=== PATIENT | male | born 1965 | race Two or more races ===

== ENCOUNTER 2025-01-23 14:20 | Inpatient (IN) | payer MEDICAID, OTHER ==
[~2025-01-23] VITALS: Ht 167.6 cm; Wt 63.8 kg
--- NOTE | 2025-01-23 14:37 | ED.PDOC ---
HPI (NEURO) HPI Comments 59 y/o M, BIBA with PMHX of epilepsy and chronic left sided deficit presents to the ED for CC of s/p seizure. EMS reports, patient is coming from home where he experienced a seizure. Patient is currently postictal; patient was given x5 Versed in route to ED. EMS states, patient is compliant with Keppra q.d. No other symptoms or medical history obtainable at this time due to patient being A&Ox0. Time Seen by MD: 14:30 Reviewed Notes: Nurses Notes, Ice Skating Teacher Notes, Medications, Allergies Information Source: Emergency Med Personnel Mode of Arrival: EMS Severity: Moderate Headache Severity: None Timing: Minutes Duration: Since onset Prehospital treatment: Other (Versed) Onset: At rest Circumstances: Spontaneous Symptoms: None During: Awake Modifying factors: Nothing Past Medical History Past Medical History (Other): epilepsy Surgical History: Unknown Family History Family History: Unknown Social History Smoker: Non-Smoker Alcohol: Denies ETOH Use Drugs: Denies Drug Use Lives In: Home Constitutional: denies: chills, diaphoresis, fatigue, fever, malaise, sweats, weakness, others EENTM: denies: blurred vision, double vision, ear bleeding, ear discharge, ear drainage, ear pain, ear ringing, eye pain, eye redness, hearing loss, mouth pain, mouth swelling, nasal discharge, nose bleeding, nose congestion, nose pain, photophobia, tearing, throat pain, throat swelling, voice changes, others Respiratory: denies: cough, hemoptysis, orthopnea, SOB at rest, shortness of breath, SOB with excertion, stridor, wheezing, others Cardiovascular: denies: chest pain, dizzy spells, diaphoresis, Dyspnea on exertion, edema, irregular heart beat, left arm pain, lightheadedness, palpitations, PND, syncope, others Gastrointestinal: denies: abdomen distended, abdominal pain, blood streaked bowels, constipated, diarrhea, dysphagia, difficulty swallowing, hematemesis, melena, nausea, poor appetite, poor fluid intake, rectal bleeding, rectal pain, vomiting, others Genitourinary: denies: burning, dysuria, flank pain, frequency, hematuria, incontinence, penile discharge, penile sore, pain, testicle pain, testicle swelling, urgency, others Neurological: reports: seizure; denies: dizziness, fainting, headache, left sided numbness, left sided weakness, numbness, paresthesia, pre-existing deficit, right sided numbness, right sided weakness, speech problems, tingling, tremors, weakness, others Musculoskeletal: denies: back pain, gout, joint pain, joint swelling, muscle pain, muscle stiffness, neck pain, others Integumetry: denies: bruises, change in color, change in hair/nails, dryness, laceration, lesions, lumps, rash, wounds, others Allergic/Immunocompromised: denies: Difficulty Healing, Frequent Infections, Hives, Itching, others Hematologic/Lymphatic: denies: anemia, blood clots, easy bleeding, easy bruising, swollen glands, others Endocrine: denies: excessive hunger, excessive sweating, excessive thirst, excessive urination, flushing, intolerance to cold, intolerance to heat, un explained weight gain, unexplained weight loss, others Psychiatric: denies: anxiety, bipolar disorder, depression, hopeless, panic disorder, schizophrenia, sleepless, suicidal, others Physical Exam General Appearance: No Apparent Distress, Normal HEENT: Normal ENT Inspection, Pharynx Normal Neck: Full Range of Motion, Non-Tender, Normal, Normal Inspection Respiratory: Chest Non-Tender, Lungs Clear, No Accessory Muscle Use, No Respiratory Distress, Normal Breath Sounds Cardiovascular: No Edema, No Murmur, No Gallop, Normal Peripheral Pulses, Regular Rate/Rhythm Breast Exam: Deferred Gastrointestinal: No Organomegaly, Non Tender, No Pulsatile Mass, Normal Bowel Sounds, Soft Genitalia: Deferred Pelvic: Deferred Rectal: Deferred Extremities: Non-tender, No pedal edema Musculoskeletal : Apperance: Normal Neurologic: Disoriented, Seizure, Sensory Deficit (chronic left sided deficit ) Cerebellar Function: NOT DONE Reflexes: Normal Skin: Dry, Normal Color, Warm Lymphatic: No Adenopathy EKG EKG : Pulse Rate (adult): 116 [place]: Normal Cardiac Rhythm: ST Block: None Hypertrophy: None ST: Normal Was a procedure done? Was a procedure done?: No Differential Diagnosis (SZ) Seizure: Epilepsy-Break Through X-Ray, Labs, Meds, VS Vital Signs Date Time Temp Pulse Resp B/P (MAP) Pulse Ox O2 Delivery O2 Flow Rate FiO2 01/23/25 16:05 100.2 106 13 116/67 (83) 88 100.2 01/23/25 16:00 109 01/23/25 14:37 102.3 119 16 91/56 (68) 99 102.3 01/23/25 14:37 116 Lab Test 01/23/25 16:58 01/23/25 16:01 01/23/25 15:11 Range/Units Lactic Acid Level Pending 3.7 *H 0.4-2.0 mmol/L POC Glucose 88 70-106 mg/dl White Blood Count 16.4 H 4.4-10.8 10^3/uL Red Blood Count 4.66 4.5-5.90 10^6/uL Hemoglobin 14.6 13.5-17.5 g/dL Hematocrit 42.4 41.0-53.0 % Mean Corpuscular Volume 91.0 80.0-100.0 fL Mean Corpuscular Hemoglobin 31.4 28.0-32.0 pg Mean Corpuscular Hemoglobin Concent 34.5 32.0-36.0 g/dL Red Cell Distribution Width 13.9 11.8-14.3 % Platelet Count 231 140-450 10^3/uL Mean Platelet Volume 8.5 6.9-10.8 fL Neutrophils (%) (Auto) 91.2 H 37.0-80.0 % Lymphocytes (%) (Auto) 3.2 L 10.0-50.0 % Monocytes (%) (Auto) 5.2 0.0-12.0 % Eosinophils (%) (Auto) 0.2 0.0-7.0 % Basophils (%) (Auto) 0.2 0.0-2.0 % Neutrophils # (Auto) 15.0 H 1.6-8.6 10 ^3/uL Lymphocytes # (Auto) 0.5 0.4-5.4 10 ^3/uL Monocytes # (Auto) 0.8 0-1.3 10 ^3/uL Eosinophils # (Auto) 0 0-0.8 10 ^3/uL Basophils # (Auto) 0 0-0.2 10 ^3/uL Nucleated Red Blood Cells 0.1 % D-Dimer, Quantitative 0.49 0.0-0.49 mg/L FEU Sodium Level 142 136-145 mmol/L Potassium Level 3.7 3.5-5.1 mmol/L Chloride Level 102 98-107 mmol/L Carbon Dioxide Level 28 20-31 mmol/L Anion Gap 12 5-15 Blood Urea Nitrogen 13 9-23 mg/dL Creatinine 1.04 0.700-1.30 mg/dL Glomerular Filtration Rate Calc 84 >90 mL/min BUN/Creatinine Ratio 12.5 10.0-20.0 Serum Glucose 69 L 74-106 mg/dL Calcium Level 9.8 8.7-10.4 mg/dL Magnesium Level 2.1 1.6-2.6 mg/dL Total Bilirubin 0.8 0.2-1.0 mg/dL Aspartate Amino Transferase (AST) 27 13-40 U/L Alanine Aminotransferase (ALT) 34 7-40 U/L Alkaline Phosphatase 113 46-116 U/L Total Protein 7.5 5.7-8.2 g/dL Albumin 4.9 H 3.2-4.8 g/dL Blood Oxycodone Screen Pending Blood Methadone Screen Pending Blood Amphetamines Screen Pending Drugs of Abuse Source Pending Plasma/Serum Blood Alcohol 4.8 <10 mg/dL Current Medications Medications (Trade) Dose Ordered Sig/Clara Route Start Time Stop Time Status Last Admin Levetiracetam 100 ml @ 400 mls/hr ONCE ONCE IV 01/23/25 16:15 01/23/25 16:29 DC 01/23/25 16:14 Sodium Chloride 1,900 ml @ 1,900 mls/hr ONCE ONCE IV 01/23/25 16:15 01/23/25 17:14 DC 01/23/25 16:26 Piperacillin Sod/ Tazobactam Sod 100 ml @ 100 mls/hr ONCE ONCE IV 01/23/25 16:15 01/23/25 17:14 DC 01/23/25 17:04 Lorazepam (Ativan Inj) 2 mg ONCE ONCE IV 01/23/25 16:30 01/23/25 16:31 DC 01/23/25 16:27 X-Ray, Labs, Meds, VS Comment This 59-year-old male with past medical significant for epilepsy presents after having a seizure. The patient was essentially nonverbal and presentation. Du ring his stay, however, the patient was noted to have a temperature was borderline to fever 101.2. He was leukocytosis, and tachycardia. The patient was noted to have a focal seizure while in the emergency room that is present with Ativan. The patient was also given vancomycin, Zosyn, IV fluids and Keppra for his seizures. He will be admitted for further workup management as multiple complaints. Time of 1ST Reevaluation: 15:00 Reevaluation 1ST: Unchanged Patient Education/Counseling: Diagnosis, Treatment Family Education/Counseling: No Family Present Departure 1 Departure Time of Disposition: 17:26 Impression: Primary Impression: Breakthrough seizure Additional Impression: Sepsis Disposition: ADMITTED INPATIENT Admit to: Tele Condition: Serious Critical Care Note Critical Care Time?: No Stability Stability form required: No Heart Score Heart Score: Heart Score Response (Comments) Value History N/A 0 EKG N/A 0 Age N/A 0 Risk Factors N/A 0 Troponin N/A 0 Total 0 I personally scribed for LARRY SHEARER MD ([email or web address]) on 01/23/25 at 14:37. Electronically submitted by Flora Borges ([email or web address]). I personally scribed for LARRY SHEARER MD ([email or web address]) on 01/23/25 at 14:40. Electronically submitted by Flora Borges ([email or web address]). I personally scribed for LARRY SHEARER MD ([email or web address]) on 01/23/25 at 14:49. Electronically submitted by Flora Borges ([email or web address]). I personally scribed for LARRY SHEARER MD ([email or web address]) on 01/23/25 at 14:50. Electronically submitted by Flora Borges ([employer] LARRY SHEARER MD Jan 23, 2025 14:37
[2025-01-23 15:25] LABS: Basophils # (auto) 0 10 ^3/uL (0-0.2); Basophils % (auto) 0.2 % (0.0-2.0); Eosinophils # (auto) 0 10 ^3/uL (0-0.8); Eosinophils % (auto) 0.2 % (0.0-7.0); Hematocrit 42.4 % (41.0-53.0); Hemoglobin 14.6 g/dL (13.5-17.5); Lymphocytes # (auto) 0.5 10 ^3/uL (0.4-5.4); Lymphocytes % (auto) 3.2 % (10.0-50.0); Mean Corpuscular Hemoglobin 31.4 pg (28.0-32.0); Mean Corpuscular Hgb Conc. 34.5 g/dL (32.0-36.0); Monocytes # (auto) 0.8 10 ^3/uL (0-1.3); Monocytes % (auto) 5.2 % (0.0-12.0); Neutrophils % (auto) 91.2 % (37.0-80.0); Nucleated Red Blood Cells % 0.1 %; Platelet Count (auto) 231 10^3/uL (140-450); Red Blood Cells 4.66 10^6/uL (4.5-5.90); Red Cell Distribution Width 13.9 % (11.8-14.3); White Blood Cell 16.4 10^3/uL (4.4-10.8)
[2025-01-23 15:40] LABS: Alanine Aminotransferase 34 U/L (7-40); Alkaline Phosphatase 113 U/L (46-116); Anion Gap 12 (5-15); Aspartate Aminotransferase 27 U/L (13-40); BUN/Creatinine Ratio 12.5 (10.0-20.0); Blood Alcohol 4.8 mg/dL (<10); Blood Urea Nitrogen 13 mg/dL (9-23); Calcium 9.8 mg/dL (8.7-10.4); Carbon Dioxide 28 mmol/L (20-31); Chloride 102 mmol/L (98-107); Magnesium 2.1 mg/dL (1.6-2.6); Potassium 3.7 mmol/L (3.5-5.1); Sodium 142 mmol/L (136-145); Total Protein 7.5 g/dL (5.7-8.2)
[2025-01-23 15:41] LABS: Bilirubin, Total 0.8 mg/dL (0.2-1.0)
[2025-01-23 15:42] LABS: Albumin 4.9 g/dL (3.2-4.8); Glucose 69 mg/dL (74-106)
[2025-01-23 15:43] LABS: Lactic Acid w/Reflex 3.7 mmol/L (0.4-2.0)
[2025-01-23] MEDS: levETIRAcetam 1000 mg/100ml 100 ML IV ONE (16:14)
[2025-01-23] MEDS: LORazepam 2MG/ML-1ML VIAL ONE (16:19)
[2025-01-23] MEDS: SODIUM CHLORIDE 0.9% 1,900 ML IV ONE (16:26)
[2025-01-23] MEDS: LORazepam 2MG/ML-1ML VIAL IV ONE (16:27)
[2025-01-23 16:30] VITALS: PULSE 106; RESP 13; O2SAT 92
[2025-01-23] MEDS: PIPERACILLIN-TAZOB 3.375GM 100 ML IV ONE (17:04)
[2025-01-23] MEDS: VANCOMYCIN 1GM/200ML PM 250 ML IV ONE (17:30)
[2025-01-23 19:25] VITALS: PULSE 98; RESP 13; O2SAT 97
--- NOTE | 2025-01-23 21:22 | DVH ---
EXAM: CT HEAD WITHOUT CONTRAST INDICATION: aloc TECHNIQUE: CT of the head without intravenous contrast. Radiation Dose Information: CT Dose: CTDI volume is 56.75 mGy. Dose-length product is 1118.41 mGy*cm The dose indicators for CT are the volume Computed Tomography (CT) Dose Index (CTDIvol) and the Dose Length Product (DLP), and are measured in units of mGy and mGy-cm, respectively. These indicators are not patient dose, but values generated from the CT scanner acquisition factors. The report includes radiation exposure data for exposures received during this examination. COMPARISON: None FINDINGS: There is no evidence of acute intracranial hemorrhage, extra-axial collection, mass effect, midline s hift, herniation or hydrocephalus. The ventricles, sulci and cisterns are age appropriate. The black-white differentiation is intact. Patchy periventricular and subcortical white matter hypoattenuation is nonspecific but may be related to small vessel ischemic disease. The visualized paranasal sinuses and mastoid air cells are clear. The surrounding soft tissues and osseous structures are unremarkable. IMPRESSION: 1. No acute intracranial hemorrhage 2. No CT findings of territorial ischemia. HS:Y
--- NOTE | 2025-01-23 21:31 | DVH ---
EXAM: XY CHEST PORTABLE TECHNIQUE: Single frontal chest radiograph CLINICAL HISTORY: cough COMPARISON: None Findings/Impression: Frontal chest radiograph demonstrates no acute osseous or superficial soft tissue abnormalities. The trachea is midline. The cardiac silhouette and mediastinum are within normal limits. No pneumothorax, pleural effusions, or consolidations.
[2025-01-23] MEDS ORDERED: ONDANSETRON HCL 4 MG/2 ML VIAL IV PRN (21:45)
[2025-01-23] MEDS ORDERED: DOCUSATE SOD 100 MG CAP PO PRN (21:45)
[2025-01-23] MEDS ORDERED: LORazepam 2MG/ML-1ML VIAL IV PRN (21:45)
[2025-01-23] MEDS ORDERED: HYDROcodone-ACET 5/325MG TAB PO PRN (21:45)
[2025-01-23] MEDS: ATORVASTATIN 20 MG TAB PO SCH (22:00)
[2025-01-23 22:10] VITALS: O2SAT 96
[2025-01-23 22:38] LABS: Urine Bacteria FEW /hpf (None Seen); Urine Blood Negative /uL (Negative); Urine Clarity Clear (Clear); Urine Color Colorless (Yellow); Urine Hyaline Cast FEW /lpf (0 - 2); Urine Mucus FEW (None Seen); Urine Protein, UAD Negative (Negative); Urine Specific Gravity 1.014 (1.001-1.035); Urine Squamous Epithelial Cell FEW /hpf (<5); Urine Urobilinogen Normal (Negative); Urine WBC 1 /HPF (0-3); Urine pH 7.5 (5.0-9.0)
[2025-01-23 22:44] LABS: Amphetamine Screen, Urine Neg (NEGATIVE); Barbiturate Scree,Urine Neg (NEGATIVE); Benzodiazephine Screen, Urine Pos (NEGATIVE); Cannabinoid Screen, Urine Neg (NEGATIVE); Cocaine Screen, Urine Neg (NEGATIVE); Opiate Scree,Urine Neg (NEGATIVE); Phencyclidine Screen, Urine Neg (NEGATIVE)
[2025-01-23] MEDS ORDERED: D5W/LACTATED RINGERS 1,000 ML IV ONE (23:00)
--- NOTE | 2025-01-23 23:09 | DVHHP2 ---
History of Present Illness Reason for Visit: Seizure disorder History of Present Illness The patient is a 59-year-old male with past medical history of epilepsy who presented to [facility] ED for evaluation of seizures activity. As reported by EMS, patient had seizure activity, currently postictal, given Versed x5 EN route to our facility ED. patient was seen and evaluated in the ED, laboratory data shows WBC 16.4, platelets 231, sodium 142, potassium 3.7, BUN 13, creatinine 1.04, GFR 84, glucose 69, lactic acid 3.7 trending down to 1.3, albumin 4.9, D-dimer 0.49, blood pressure 146/96, heart rate 95, temperature 100.2 F, O2 saturation 97% on room air. Head CT showed no acute intracranial hemorrhage. Patient was started on IV Keppra, please see medication orders section in the computer. On my assessment, patient denies chest pain, no headache, dizziness, no diaphoresis, no shortness of breath, no nausea, no vomiting, no fever, no chills. Patient was admitted for further evaluation and medical management. Past Medical History Epilepsy Past Surgical History No surgical history on file Family History Reviewed, noncontributory to the management of this case. Past Social History The patient lives at home, denies smoking, alcohol or illicit drugs abuse. Review of Systems Constitutional: Yes: Weakness; No: Fever, Chills, Sweats, Malaise, Other Eyes: No: Pain, Vision change, Conjunctivae inflammation, Eyelid inflammation, Other, Redness ENT: No: Ear pain, Ear discharge, Nose pain, Nose discharge, Nose congestion, Mouth pain, Mouth swelling, Throat pain, Throat swelling, Other Respiratory: No: Cough, Dry, Shortness of breath, SOB with excertion, Wheezing, Hemoptysis, Pleuritic Pain, Sputum, Wheezing, Other Cardiovascular: No: Chest Pain, Palpitations, Orthopnea, Paroxysmal Noc. Dyspnea, Edema, Lt Headedness, Other Gastrointestinal: No: Nausea, Vomiting, Abdominal Pain, Diarrhea, Constipation, Melena, Hematochezia, Other Genitourinary: No Dysuria, No Frequency, No Incontinence, No Hematuria, No Retention, No Other Musculoskeletal: No: other, neck pain, shoulder pain, arm pain, back pain, hand pain, leg pain, foot pain Skin: No: Rash, Lesions, Jaundice, Bruising, Other Neurological: Seizures; No: Weakness, Numbness, Incoordination, Change in speech, Confusion, Other Allergies: Coded Allergies: Diazepam (Verified Allergy, Unknown, 01/23/25) Medications Current Medications Medications Dose Ordered Sig/Clara Route Start Time Stop Time Status Last Admin Dose Admin Piperacillin Sod/ Tazobactam Sod 100 ml @ 25 mls/hr Q8HR@0100,0900,1700 IV 01/24/25 01:00 Levetiracetam 100 ml @ 400 mls/hr BID IV 01/24/25 10:00 Aspirin 81 mg DAILY PO 01/24/25 10:00 Atorvastatin Calcium 40 mg HS PO 01/23/25 22:00 Hydralazine HCl 10 mg Q6HP PRN IV 01/23/25 21:45 Lorazepam 1 mg Q8HP PRN IV 01/23/25 21:45 Acetaminophen/ Hydrocodone Bitart 1 tab Q4HP PRN PO 01/23/25 21:45 Ondansetron HCl 4 mg Q4HP PRN IV 01/23/25 21:45 Docusate Sodium 100 mg BIDPRN PRN PO 01/23/25 21:45 Acetaminophen 650 mg Q6HP PRN PO 01/23/25 21:45 Amlodipine Besylate 5 mg DAILY PO 01/24/25 10:00 Exam Vital Signs Vital Signs Date Time Temp Pulse Resp B/P (MAP) Pulse Ox O2 Delivery O2 Flow Rate FiO2 01/23/25 22:10 96 Room Air* 0 21 01/23/25 19:55 100.2 95 15 146/96 (113) 100.2 General Appearance: Alert, Cooperative, No acute distress, Other (Oriented x2) HEENT: Atraumatic, PERRLA, EOMI, Mucous membr. moist/pink Respiratory: Clear to auscultation, Normal air movement Cardiovascular: Regular rate, Normal S1, Normal S2, No murmurs Abdominal: Normal bowel sounds, Soft, No tenderness, No hepatospenomegaly, No masses Extremities: No clubbing, No cyanosis, No edema, Normal pulses, No tenderness/swelling Skin: No rashes, No breakdown, No significant lesion Neuro: Normal speech, Normal tone, Sensation intact, Cranial nerves 3-12 NL, Reflexes 2+, Other (Generalized weakness) Psych/Mental Status: Mental status NL, Mood NL Labs/Xrays Labs Test 01/23/25 21:44 01/23/25 16:58 01/23/25 16:01 01/23/25 15:11 Range/Units Urine Color Colorless Yellow Urine Clarity Clear Clear Urine pH 7.5 5.0-9.0 Urine Specific [place] 1.014 1.001-1.035 Urine Protein Negative Negative Urine Ketones Negative Negative Urine Blood Negative Negative /uL Urine Nitrite Negative Negative Urine Bilirubin Negative Negative Urine Urobilinogen Normal Negative mg/dL Urine Leukocyte Esterase Negative Negative /uL Urine RBC 1 0 - 3 /hpf Urine Microscopic WBC 1 0-3 /HPF Urine Squamous Epithelial Cells Few <5 /hpf Urine Bacteria Few H None Seen /hpf Urine Hyaline Casts Few 0 - 2 /lpf Urine Mucus Few None Seen Urine Glucose Normal Normal mg/dL Urine Opiates Screen Neg NEGATIVE Urine Fentanyl Screen Neg NEGATIVE Urine Barbiturates Screen Neg NEGATIVE Urine Phencyclidine Screen Neg NEGATIVE Urine Amphetamines Screen Neg NEGATIVE Urine Benzodiazepines Screen Pos NEGATIVE Urine Cocaine Screen Neg NEGATIVE Urine Cannabinoids Screen Neg NEGATIVE Lactic Acid Level 1.3 0.4-2.0 mmol/L POC Glucose 88 70-106 mg/dl White Blood Count 16.4 H 4.4-10.8 10^3/uL Red Blood Count 4.66 4.5-5.90 10^6/uL Hemoglobin 14.6 13.5-17.5 g/dL Hematocrit 42.4 41.0-53.0 % Mean Corpuscular Volume 91.0 80.0-100.0 fL Mean Corpuscular Hemoglobin 31.4 28.0-32.0 pg Mean Corpuscular Hemoglobin Concent 34.5 32.0-36.0 g/dL Red Cell Distribution Width 13.9 11.8-14.3 % Platelet Count 231 140-450 10^3/uL Mean Platelet Volume 8.5 6.9-10.8 fL Neutrophils (%) (Auto) 91.2 H 37.0-80.0 % Lymphocytes (%) (Auto) 3.2 L 10.0-50.0 % Monocytes (%) (Auto) 5.2 0.0-12.0 % Eosinophils (%) (Auto) 0.2 0.0-7.0 % Basophils (%) (Auto) 0.2 0.0-2.0 % Neutrophils # (Auto) 15.0 H 1.6-8.6 10 ^3/uL Lymphocytes # (Auto) 0.5 0.4-5.4 10 ^3/uL Monocytes # (Auto) 0.8 0-1.3 10 ^3/uL Eosinophils # (Auto) 0 0-0.8 10 ^3/uL Basophils # (Auto) 0 0-0.2 10 ^3/uL Nucleated Red Blood Cells 0.1 % D-Dimer, Quantitative 0.49 0.0-0.49 mg/L FEU Sodium Level 142 136-145 mmol/L Potassium Level 3.7 3.5-5.1 mmol/L Chloride Level 102 98-107 mmol/L Carbon Dioxide Level 28 20-31 mmol/L Anion Gap 12 5-15 Blood Urea Nitrogen 13 9-23 mg/dL Creatinine 1.04 0.700-1.30 mg/dL Glomerular Filtration Rate Calc 84 >90 mL/min BUN/Creatinine Ratio 12.5 10.0-20.0 Serum Glucose 69 L 74-106 mg/dL Calcium Level 9.8 8.7-10.4 mg/dL Magnesium Level 2.1 1.6-2.6 mg/dL Total Bilirubin 0.8 0.2-1.0 mg/dL Aspartate Amino Transferase (AST) 27 13-40 U/L Alanine Aminotransferase (ALT) 34 7-40 U/L Alkaline Phosphatase 113 46-116 U/L Total Protein 7.5 5.7-8.2 g/dL Albumin 4.9 H 3.2-4.8 g/dL Plasma/Serum Blood Alcohol 4.8 <10 mg/dL PATIENT: VLADISLAV SINGH ACCT: [id number] UNIT: [id number] : 1965 LOC: ER ROOM / BED: / AGE / SEX: 59 / M ADM STATUS: REG ER SERVICE 1450 ORDERING PHYSICIAN: LARRY SHEARER MD PROCEDURE(s): HWOCT - HEAD WITHOUT CONTRAST REASON: aloc ORDER NUMBER(s): [id number], ACCESSION NUMBER(s): [id number] EXAM: CT HEAD WITHOUT CONTRAST INDICATION: aloc TECHNIQUE: CT of the head without intravenous contrast. Radiation Dose Information: CT Dose: CTDI volume is 56.75 mGy. Dose-length product is 1118.41 mGy*cm The dose indicators for CT are the volume Computed Tomography (CT) Dose Index (CTDIvol) and the Dose Length Product (DLP), and are measured in units of mGy and mGy-cm, respectively. These indicators are not patient dose, but values generated from the CT scanner acquisition factors. The report includes radiation exposure data for exposures received during this examination. COMPARISON: None FINDINGS: There is no evidence of acute intracranial hemorrhage, extra-axial collection, mass effect, midline shift, herniation or hydrocephalus. The ventricles, sulci and cisterns are age appropriate. The black-white differentiation is intact. Patchy periventricular and subcortical white matter hypoattenuation is nonspecific but may be related to small vessel ischemic disease. The visualized paranasal sinuses and mastoid air cells are clear. The surrounding soft tissues and osseous structures are unremarkable. IMPRESSION: 1. No acute intracranial hemorrhage 2. No CT findings of territorial ischemia. ORDERING PHYSICIAN: LARRY SHEARER MD PROCEDURE(s): CXRP - CHEST PORTABLE REASON: cough ORDER NUMBER(s): [id number], ACCESSION NUMBER(s): [id number] EXAM: XY CHEST PORTABLE TECHNIQUE: Single frontal chest radiograph CLINICAL HISTORY: cough COMPARISON: None Findings/Impression: Frontal chest radiograph demonstrates no acute osseous or superficial soft tissue abnormalities. The trachea is midline. The cardiac silhouette and mediastinum are within normal limits. No pneumothorax, pleural effusions, or consolidations. Assessment/Plan Assessment/Plan Breakthrough seizure Generalized weakness Sepsis, unspecified organism Plan 1. Admit to telemetry unit 2. Breathing treatment 3. Pain control management 4. IV antibiotic management 5. Management of fluids and electrolytes 6. Consultation for Neurology 7. Diagnostic test head CT 8. DVT prophylaxis-on SCDs 9. Repeat labs CBC, CMP in a.m. 10. Home medication reviewed and reconciled 11. Continue with current medical management 12. Treatment plan discussed with patient and RN. Patient verbalized understanding. 1 Plan discussed with: Patient, Other (RN) My Orders Orders - DAMARIS LOUIS DNP Procedure Category Date Status Time Aspirin Tablet PHA 01/24/25 In Process 10:00 Atorvastatin (Lipitor) PHA 01/23/25 In Process 22:00 Hydralazine Injection PHA 01/23/25 In Process (Apresoline Inject 21:45 Lorazepam 2mg/Ml Inj PHA 01/23/25 In Process (Ativan Inj) 21:45 * Neurology Consult CONS 01/23/25 Transmitted 21:38 Allergies KENAN 01/23/25 In Process 21:38 Code Status CODE 01/23/25 Transmitted 21:38 Oxygen Per Hour RT 01/23/25 Transmitted 21:38 Hydrocodone-Acet PHA 01/23/25 In Process 5/325mg Tab ([place] 21:45 Ondansetron Hcl PHA 01/23/25 In Process (Zofran) 21:45 Docusate Sodium PHA 01/23/25 In Process Capsule (Colace 21:45 Fall Risk Precautions KENAN 01/23/[address] 21:38 Complete Blood Count LAB 01/24/25 Verified 04:00 Comprehensive LAB 01/24/25 Verified Metabolic Panel 04:00 Cardiac DIET 01/24/25 Transmitted Diet-2gna,Lofat,Lochol Breakfast Condition: Serious KENAN 01/23/25 In Process 21:38 Acetaminophen Tablet PHA 01/23/25 In Process (Tylenol Tablet) 21:45 Bedrest With Bathroom KENAN 01/23/25 In Process Privileg 21:38 Sequential KEANN 01/23/25 In Process Compression Device Amlodipine Tablet PHA 01/24/25 In Process (Norvasc Tablet) 10:00 Levetiracetam 1000 PHA 01/24/25 In Process Mg/100ml (Levetiracet 10:00 Piperacillin-Tazob PHA 01/24/25 In Process 3.375gm (Zosyn 3.375g 01:00 Problem List: (1) Breakthrough seizure (2) Generalized weakness (3) Sepsis, unspecified organism Date of Service: Jan 23, 2025 Billing Provider: DAMARIS LOUIS DNP Common Visit Codes: [id number] INP/OBS CARE (HIGH) DAMAIRS LOUIS DNP Jan 23, 2025 23:09
[2025-01-23] MEDS ORDERED: NITROGLYCERIN 0.4 MG SL TAB SL PRN (23:15)
[2025-01-23] MEDS ORDERED: MORPHINE SULFATE INJ 2 MG/ml SYRG IV PRN (23:15)
[2025-01-24] VITALS (10 sets, daily range): BP systolic 121–145; BP diastolic 72–85; PULSE 68–87; RESP 17–19; TEMP 97.6–98; O2SAT 90–100
[2025-01-24] MEDS: PIPERACILLIN-TAZOB 3.375GM 100 ML IV SCH (01:00)
[2025-01-24 05:20] LABS: Basophils # (auto) 0 10 ^3/uL (0-0.2); Basophils % (auto) 0.3 % (0.0-2.0); Eosinophils # (auto) 0.1 10 ^3/uL (0-0.8); Eosinophils % (auto) 0.7 % (0.0-7.0); Hematocrit 43.6 % (41.0-53.0); Hemoglobin 15.3 g/dL (13.5-17.5); Lymphocytes # (auto) 1.4 10 ^3/uL (0.4-5.4); Lymphocytes % (auto) 10.8 % (10.0-50.0); Mean Corpuscular Hgb Conc. 35.2 g/dL (32.0-36.0); Mean Corpuscular Volume 91.1 fL (80.0-100.0); Monocytes # (auto) 0.8 10 ^3/uL (0-1.3); Monocytes % (auto) 6.5 % (0.0-12.0); Neutrophils # (auto) 10.4 10 ^3/uL (1.6-8.6); Neutrophils % (auto) 81.7 % (37.0-80.0); Nucleated Red Blood Cells % 0.4 %; Platelet Count (auto) 223 10^3/uL (140-450); Red Blood Cells 4.78 10^6/uL (4.5-5.90); Red Cell Distribution Width 13.9 % (11.8-14.3); White Blood Cell 12.7 10^3/uL (4.4-10.8)
[2025-01-24 05:51] LABS: Alanine Aminotransferase 29 U/L (7-40); Albumin 4.8 g/dL (3.2-4.8); Alkaline Phosphatase 109 U/L (46-116); Anion Gap 8 (5-15); Aspartate Aminotransferase 38 U/L (13-40); BUN/Creatinine Ratio 11.6 (10.0-20.0); Calcium 9.4 mg/dL (8.7-10.4); Carbon Dioxide 27 mmol/L (20-31); Chloride 101 mmol/L (98-107); Glucose 95 mg/dL (74-106); Potassium 3.8 mmol/L (3.5-5.1); Sodium 136 mmol/L (136-145); Total Protein 7.6 g/dL (5.7-8.2)
[2025-01-24 06:14] LABS: Bilirubin, Total 1.7 mg/dL (0.2-1.0); Blood Urea Nitrogen 8 mg/dL (9-23)
[2025-01-24] MEDS: levETIRAcetam 1000 mg/100ml 100 ML IV SCH (09:43)
[2025-01-24] MEDS: SODIUM CHLORIDE 0.9% 1,000 ML IV SCH (09:50)
[2025-01-24] MEDS: amLODIPine BESYLATE 5 MG TAB PO SCH (09:53)
[2025-01-24] MEDS: ASPirin 81 mg TAB PO SCH (09:53)
[2025-01-24] MEDS ORDERED: VANCOMYCIN PER PHARMACY 0 MG IV SCH (12:00)
--- NOTE | 2025-01-24 12:31 | DVHINCON2 ---
Date of service: Jan 24, 2025 Referring Physician Kathya Reason for Consultation Seizure disorder History of Present Illness Mr. Li is a 59 years old right-handed gentleman with a history of hypertension, stroke with residual right-sided weakness, seizure disorder, he came to the [facility] on 01/23/2025 with a chief complaint of seizure activity. At this time, he is sedated with Ativan because of seizure activity (respond to verbal stimuli, he follows), the history is obtained from his son On 01/23/2025, his son witnessed a intense seizure activity on him, in that he was shaking in both arms, legs, eyes rolling back, increased saliva from the mouth, the shaking persists for more than 10 minutes, and his son relates the patient was has never had a seizure attack so intense and so long He seizure problem started in the age of 20, in that he has spells event with loss of consciousness, shaking all over body, the seizure typically lasts for less than 1 minutes or no more than 2 minutes, the last time he had seizure was in 11/2024, and he had four seizures in 2023. He sees his family doctor for seizure control, and he is to see a neurologist soon, he is on Keppra 1000 mg b.i.d. In 08/2023, the patient was suffer from a stroke, which caused right-sided weakness, patient was has had a lot of improvement, he is able to use the right hand occasionally, he can walk with a walker, he was on aspirin 81 mg day, ac cording to the reconciled medication list, he was supposed to take atorvastatin 40 mg daily [phone], father, poor historian Urinalysis, 01/23/2025: WBC: 1, urine leukocyte esterase: Likely UDS, : Benzo Plasma alcohol, 01/23/2025: 4.8 WBC/HB/PLT/MCV, 01/24/2025: 12.7/15.3/223/91.1 BMP 01/24/2025: Unremarkable Lactic acid, 01/23/2025: 3.7, 1.3 HGB A1c, 01/24/2025: 5 TBI/AST/ALT/AP, 01/23/2025: Normal, 01/24/2025: 1.7/38/29/109 TSH, 01/23/2025: 1.07 CT head 01/23/2025: 1. No acute intracranial hemorrhage 2. No CT findings of territorial ischemia Past Medical History Hypertension, stroke with residual right-sided weakness, Past Surgical History Unknown Family History Unknown Social History Smoker: Non-Smoker Alcohol: Denies ETOH Use Drugs: Denies Drug Use Lives In: Home Allergies: Coded Allergies: Diazepam (Verified Allergy, Unknown, 01/23/25) Home Meds Unable to Obtain Active Prescriptions or Reported Meds Current Medications Current Medications Medications (Trade) Dose Ordered Sig/Clara Route PRN Reason Start Time Stop Time Status Last Admin Piperacillin Sod/ Tazobactam Sod 100 ml @ 25 mls/hr Q8HR@0100,0900,1700 IV 01/24/25 01:00 01/24/25 11:53 DC 01/24/25 09:53 Levetiracetam 100 ml @ 400 mls/hr BID IV 01/24/25 10:00 01/24/25 09:43 Aspirin 81 mg DAILY PO 01/24/25 10:00 Atorvastatin Calcium (Lipitor) 40 mg HS PO 01/23/25 22:00 Hydralazine HCl (Apresoline Injection) 10 mg Q6HP PRN IV SBP>150 01/23/25 21:45 Lorazepam (Ativan Inj) 1 mg Q8HP PRN IV ANXIETY 01/23/25 21:45 Acetaminophen/ Hydrocodone Bitart ([place] 5/325MG Tab) 1 tab Q4HP PRN PO MODERATE PAIN (4-6 PAIN SCALE) 01/23/25 21:45 Ondansetron HCl (Zofran) 4 mg Q4HP PRN IV NAUSEA / VOMITING 01/23/25 21:45 Docusate Sodium (Colace Capsule) 100 mg BIDPRN PRN PO FOR CONSTIPATION 01/23/25 21:45 Acetaminophen (Tylenol Tablet) 650 mg Q6HP PRN PO PAIN SCALE 1-3 OR TEMP>100.4 01/23/25 21:45 Amlodipine Besylate (Norvasc Tablet) 5 mg DAILY PO 01/24/25 10:00 Nitroglycerin (Ntrostat Sublingual) 0.4 mg Q5MINP PRN SL FOR CHEST PAIN 01/23/25 23:15 Morphine Sulfate 2 mg Q30M PRN IV FOR CHEST PAIN 01/23/25 23:15 Lorazepam (Ativan Inj) 1 mg Q5MINP PRN IV SEIZURES 01/24/25 09:15 Sodium Chloride 1,000 ml @ 75 mls/hr [id number] IV 01/24/25 09:15 01/24/25 09:50 Vancomycin HCl 0 ml @ 0 mls/hr UD IV 01/24/25 12:00 UNV Ceftriaxone Sodium/Dextrose 50 ml @ 50 mls/hr Q12HR@ IV 01/24/25 21:00 UNV Review of Systems Unobtainable Vital Signs Vital Signs Date Time Temp Pulse Resp B/P (MAP) Pulse Ox O2 Delivery O2 Flow Rate FiO2 01/24/25 08:13 97.8 83 18 121/72 (88) 100 97.8 01/24/25 08:00 Nasal Cannula* 2 28 Physical Exam GENERAL EXAM: General: the patient is well developed and nourished. No acute distress. HEENT: Normocephalic, neck is supple, no carotid bruits. No mass. RESPIRATORY: Normal respiratory effort with symmetrical lung expansion. Lungs clear to auscultation. CARDIOVASCULAR: Regular rate and rhythm with no murmurs. S1, S2. ABDOMEN: Soft, nontender, normal bowel sound NEUROLOGICAL: MENTAL STATUS: Subjective SPEECH, LANGUAGE, HIGHER CORTICAL FUNCTION: Minimal verbal output CRANIAL NERVES: #2: Intact visual de leon to confrontation. T #3,4,6: Pupils are equal, round and reactive. EOMs full and conjugate. #5: Facial sensation intact in all three divisions bilaterally. Mandibular strength intact. #7: Mild Right facial weakness with some lower motor neuron features #8: Hearing grossly normal to voice. #9,10: Deferred #11: Deferred #12: Tongue midline. No fasciculations or atrophy. SENSATION: Sensation to touch and pinprick is ok MOTOR: Normal tone in the upper and lower extremity. Normal muscle bulk. No fasciculations. No abnormal movements or posturing. Muscle strength of the major groups in the left upper extremity is more than 4/5, lower extremity: More than 3/5. Muscle strength of he major groups in the right extremities is 0/5. REFLEXES: Deep tendon reflexes are symmetrical. No pathological reflexes. CEREBELLAR/COORDINATION: Deferred GAIT/STATION: deferred. Labs/Diagnostic Data Labs Test 01/24/25 10:05 01/24/25 04:53 01/23/25 21:44 01/23/25 16:58 Range/Units White Blood Count 12.7 H 4.4-10.8 10^3/uL Red Blood Count 4.78 4.5-5.90 10^6/uL Hemoglobin 15.3 13.5-17.5 g/dL Hematocrit 43.6 41.0-53.0 % Mean Corpuscular Volume 91.1 80.0-100.0 fL Mean Corpuscular Hemoglobin 32.0 28.0-32.0 pg Mean Corpuscular Hemoglobin Concent 35.2 32.0-36.0 g/dL Red Cell Distribution Width 13.9 11.8-14.3 % Platelet Count 223 140-450 10^3/uL Mean Platelet Volume 8.7 6.9-10.8 fL Neutrophils (%) (Auto) 81.7 H 37.0-80.0 % Lymphocytes (%) (Auto) 10.8 10.0-50.0 % Monocytes (%) (Auto) 6.5 0.0-12.0 % Eosinophils (%) (Auto) 0.7 0.0-7.0 % Basophils (%) (Auto) 0.3 0.0-2.0 % Neutrophils # (Auto) 10.4 H 1.6-8.6 10 ^3/uL Lymphocytes # (Auto) 1.4 0.4-5.4 10 ^3/uL Monocytes # (Auto) 0.8 0-1.3 10 ^3/uL Eosinophils # (Auto) 0.1 0-0.8 10 ^3/uL Basophils # (Auto) 0 0-0.2 10 ^3/uL Nucleated Red Blood Cells 0.4 % Sodium Level 136 # 136-145 mmol/L Potassium Level 3.8 3.5-5.1 mmol/L Chloride Level 101 98-107 mmol/L Carbon Dioxide Level 27 20-31 mmol/L Anion Gap 8 5-15 Blood Urea Nitrogen 8 L 9-23 mg/dL Creatinine 0.69 L 0.700-1.30 mg/dL Glomerular Filtration Rate Calc 108 >90 mL/min BUN/Creatinine Ratio 11.6 10.0-20.0 Serum Glucose 95 74-106 mg/dL Hemoglobin A1c 5.0 <5.7 % A1C Calcium Level 9.4 8.7-10.4 mg/dL Total Bilirubin 1.7 H 0.2-1.0 mg/dL Aspartate Amino Transferase (AST) 38 13-40 U/L Alanine Aminotransferase (ALT) 29 7-40 U/L Alkaline Phosphatase 109 46-116 U/L Creatine Kinase 809 H 46-171 U/L Total Protein 7.6 5.7-8.2 g/dL Albumin 4.8 3.2-4.8 g/dL Vitamin D 25-Hydroxy 13.9 L 30.0-100 ng/mL Thyroid Stimulating Hormone (TSH) 1.07 0.55-4.78 uIU/mL Urine Color Colorless Yellow Urine Clarity Clear Clear Urine pH 7.5 5.0-9.0 Urine Specific [place] 1.014 1.001-1.035 Urine Protein Negative Negative Urine Ketones Negative Negative Urine Blood Negative Negative /uL Urine Nitrite Negative Negative Urine Bilirubin Negative Negative Urine Urobilinogen Normal Negative mg/dL Urine Leukocyte Esterase Negative Negative /uL Urine RBC 1 0 - 3 /hpf Urine Microscopic WBC 1 0-3 /HPF Urine Squamous Epithelial Cells Few <5 /hpf Urine Bacteria Few H None Seen /hpf Urine Hyaline Casts Few 0 - 2 /lpf Urine Mucus Few None Seen Urine Glucose Normal Normal mg/dL Urine Opiates Screen Neg NEGATIVE Urine Fentanyl Screen Neg NEGATIVE Urine Barbiturates Screen Neg NEGATIVE Urine Phencyclidine Screen Neg NEGATIVE Urine Amphetamines Screen Neg NEGATIVE Urine Benzodiazepines Screen Pos NEGATIVE Urine Cocaine Screen Neg NEGATIVE Urine Cannabinoids Screen Neg NEGATIVE Lactic Acid Level 1.3 0.4-2.0 mmol/L Test 01/23/25 16:01 01/23/25 15:11 Range/Units POC Glucose 88 70-106 mg/dl D-Dimer, Quantitative 0.49 0.0-0.49 mg/L FEU Magnesium Level 2.1 1.6-2.6 mg/dL Plasma/Serum Blood Alcohol 4.8 <10 mg/dL Assessment Status epileptics Grand mal seizure Right hemiplegia ? Hammad's paralysis ? New stroke Chronic stroke Altered mental status Postictal confusion Metabolic encephalopathy Plan/Recommendation Monitoring Supportive treatment Telemetry EEG MR brain scan Increase the Keppra to 1250 mg b.i.d. Ativan for seizure breakthrough Aspirin 81 mg daily Lipitor 40 mg daily Up to chair Physical therapy Prognosis poor This medical document was created using an electronic medical record system with [employer] dictation system. Although this document has been carefully reviewed, there may still be some phonetic and typographical errors. These areas are purely typographical due to imperfections of the software programs, and do not reflect any compromise in the patient's medical care. Plan discussed with: TaeNiko KARLENE JUAREZ MD Jan 24, 2025 12:31
[2025-01-24] MEDS: VANCOMYCIN 1GM/200ML PM 250 ML IV ONE (13:43)
--- NOTE | 2025-01-24 14:25 | DVHPNRES ---
Progress Note Date Seen: Jan 24, 2025 Resident Creating Document: NASIMA SHAFER RESIDENT Medical Necessity Reason Pt with a Central, PICC or Fol: No Subjective Review of Systems The patient is a 59-year-old male with past medical history of epilepsy who presented to [facility] ED for evaluation of seizures activity. As reported by EMS, patient had seizure activity, currently postictal, given Versed x5 EN route to our facility ED. After admission the patient had more than 2 episodes of seizure with generalized tonic-clonic activity which last less than 30 second. Patient's vitals are stable and GCS is more than 15. patient is A&O X 0 Review of system could not be assessed as patient is A&O X 0. Objective vital signs Vital Sign Date Time Temp Pulse Resp B/P (MAP) Pulse Ox O2 Delivery O2 Flow Rate FiO2 01/24/25 13:15 97.8 83 18 135/82 (99) 100 97.8 01/24/25 08:00 Nasal Cannula* 2 28 Total Intake and Output 01/23/25 01/23/25 01/24/25 15:00 23:00 07:00 Intake Total 2100 ml Balance 2100 ml medications Current Medications Medications Dose Ordered Sig/Clara Route Start Time Stop Time Status Last Admin Dose Admin Aspirin 81 mg DAILY PO 01/24/25 10:00 Atorvastatin Calcium 40 mg HS PO 01/23/25 22:00 Hydralazine HCl 10 mg Q6HP PRN IV 01/23/25 21:45 Acetaminophen/ Hydrocodone Bitart 1 tab Q4HP PRN PO 01/23/25 21:45 Ondansetron HCl 4 mg Q4HP PRN IV 01/23/25 21:45 Docusate Sodium 100 mg BIDPRN PRN PO 01/23/25 21:45 Acetaminophen 650 mg Q6HP PRN PO 01/23/25 21:45 Amlodipine Besylate 5 mg DAILY PO 01/24/25 10:00 Nitroglycerin 0.4 mg Q5MINP PRN SL 01/23/25 23:15 Morphine Sulfate 2 mg Q30M PRN IV 01/23/25 23:15 Lorazepam 1 mg Q5MINP PRN IV 01/24/25 09:15 Sodium Chloride 1,000 ml @ 75 mls/hr [id number] IV 01/24/25 09:15 01/24/25 09:50 75 MLS/HR Vancomycin HCl 0 ml @ 0 mls/hr UD IV 01/24/25 12:00 Ceftriaxone Sodium/Dextrose 50 ml @ 50 mls/hr Q12HR@,21 IV 01/24/25 21:00 Levetiracetam 1250 mg/Dextrose 112.5 ml @ 450 mls/hr BID IV 01/24/25 22:00 Ampicillin Sodium 2 gm/Sodium Chloride 100 ml @ 100 mls/hr Q6HR IV 01/24/25 18:00 Vancomycin HCl 150 ml @ 150 mls/hr Q8H IV 01/24/25 22:00 Examination Physical examination: General Appearance: Alert, Oriented X0. HEENT: Atraumatic, PERRLA, EOMI, Mucous membrane moist/pink Respiratory: Clear to auscultation, Normal air movement Cardiovascular: Regular rate, Normal S1, Normal S2, No murmurs, no chest wall tenderness Abdominal: Normal bowel sounds, Soft, No tenderness, No hepatospenomegaly, No masses Extremities: No clubbing, No cyanosis, No edema, Normal pulses, No tenderness/swelling Skin: No rashes, No breakdown, No significant lesion Neuro: Rt sided hemiparesis, Strength at 5/5 X2 ext, Normal tone, Sensation intact, grossly intact cranial nerves. Psych/Mental Status: Mental status NL, Mood NL Negative Kernig and Brudzinski sign. laboratory and microbiology Laboratory Tests 01/24/25 04:53 Test 01/24/25 04:53 Range/Units Serum Glucose 95 74-106 mg/dL Labs and/or images reviewed: Labs reviewed by me, Image(s) reviewed by me Problem List/Assessment/Plan Problem List/Assessment/Plan Assessment and plan: # Sepsis likely due to meningitis # Acute metabolic encephalopathy likely due to seizure # Possible postictal confusion # Break through Seizure # History of epilepsy - CT head without contrast revealed no acute intracranial abnormality. - Blood culture pending - Neurology on board - Ordered MRI of the brain without contrast, EEG - Empirical antibiotic for possible meningitis - IV ceftriaxone 2 g b.i.d., IV vancomycin as per pharmacy. - Appreciate neurology consultation - possible LP after Neurology recommendation - CPK was mildly elevated because of seizure. - IV Ativan 1 mg q5min p.r.n. for seizure - UDS was positive for benzodiazepine and ordered Keppra level - IV Keppra 1250 mg b.i.d. - Seizure precaution. # Vitamin D deficiency - Vitamin D 75393 units Q 7D # PUD prophylaxis - Pepcid 20 mg p.o. daily # DVT prophylaxis - Lovenox 40 mg sc daily Goal of care could not be discussed as patient is A&O X [address] Gamboa Plan discussed with: Patient, Other My Orders My Orders Orders - NASIMA SHAFER Procedure Category Date Status Time Levetiracetam (Keppra) LAB 01/24/25 In Process 07:17 Lorazepam 2mg/Ml Inj PHA 01/24/25 In Process (Ativan Inj) 09:15 Sodium Chloride 0.9% PHA 01/24/25 In Process 09:15 Comprehensive LAB 01/24/25 In Process Hepatitis Panel 10:07 Npo (Nothing By DIET 01/24/25 Transmitted Mouth) Diet Lunch Vancomycin Per PHA 01/24/25 In Process Pharmacy 12:00 Ceftriaxone 2gm/50ml PHA 01/24/25 In Process D5w (Rocephin 2gm/5 21:00 * Radiologist Consult CONS 01/24/25 Transmitted 11:46 * Wound Consult CONS 01/24/25 Transmitted * Neurology Consult CONS 01/24/25 Transmitted 13:19 Ampicillin Sod 2gm Inj PHA 01/24/25 In Process 18:00 Vancomycin PHA 01/24/25 In Process 750mg/150ml 22:00 Vancomycin Per KENAN 01/25/25 In Process Pharmacy Protoc 14:00 Creatinine LAB 01/25/25 Verified 13:00 Vancomycin,Trough LAB 01/25/25 Verified 13:00 Date of Service: Jan 24, 2025 Billing Provider: BUSTER OHARA MD Common Visit Codes: [id number] INP/OBS CARE(HIGH) NASIMA SHAFER RESIDENT Jan 24, 2025 14:25 BUSTER OHARA MD Jan 29, 2025 23:36
[2025-01-24] MEDS: cefTRIAXone 2GM/50ML D5W 50 ML IV ONE (15:37)
[2025-01-24] MEDS: LORazepam 2MG/ML-1ML VIAL IV PRN (16:31)
[2025-01-24] MEDS ORDERED: AMPICILLIN SOD 2GM INJ 2 GM in SODIUM CHL 0.9% 100 ML IV SCH (18:00)
[2025-01-24] MEDS: VANCOMYCIN 750mg/150ml 150 ML IV SCH (22:03)
[2025-01-24] MEDS: cefTRIAXone 2GM/50ML D5W 50 ML IV SCH (22:03)
[2025-01-24] MEDS: levETIRAcetam INJ 1,250 MG in D5W 5% 100 ML IV SCH (22:53)
[2025-01-25] VITALS (8 sets, daily range): BP systolic 112–135; BP diastolic 66–90; PULSE 60–82; RESP 16–18; TEMP 96.6–98.1; O2SAT 92–100
[2025-01-25 06:38] LABS: Basophils # (auto) 0 10 ^3/uL (0-0.2); Basophils % (auto) 0.2 % (0.0-2.0); Eosinophils # (auto) 0.2 10 ^3/uL (0-0.8); Hematocrit 41.7 % (41.0-53.0); Hemoglobin 14.5 g/dL (13.5-17.5); Lymphocytes # (auto) 1.1 10 ^3/uL (0.4-5.4); Lymphocytes % (auto) 13.7 % (10.0-50.0); Mean Corpuscular Hemoglobin 31.6 pg (28.0-32.0); Mean Corpuscular Hgb Conc. 34.7 g/dL (32.0-36.0); Mean Corpuscular Volume 91.1 fL (80.0-100.0); Monocytes # (auto) 0.6 10 ^3/uL (0-1.3); Monocytes % (auto) 7.1 % (0.0-12.0); Neutrophils # (auto) 6.3 10 ^3/uL (1.6-8.6); Platelet Count (auto) 198 10^3/uL (140-450); Red Blood Cells 4.58 10^6/uL (4.5-5.90); Red Cell Distribution Width 13.9 % (11.8-14.3); White Blood Cell 8.2 10^3/uL (4.4-10.8)
[2025-01-25 06:51] LABS: Chloride 104 mmol/L (98-107); Potassium 3.5 mmol/L (3.5-5.1); Sodium 139 mmol/L (136-145)
[2025-01-25 06:56] LABS: Calcium 8.9 mg/dL (8.7-10.4)
[2025-01-25 07:01] LABS: BUN/Creatinine Ratio 15.5 (10.0-20.0); Blood Urea Nitrogen 11 mg/dL (9-23)
[2025-01-25 07:05] LABS: Glucose 73 mg/dL (74-106)
[2025-01-25 07:44] LABS: Anion Gap 9 (5-15); Carbon Dioxide 26 mmol/L (20-31)
[2025-01-25] MEDS: ENOXAPARIN SOD 40 MG/0.4 ML SYRINGE SC SCH (09:03)
[2025-01-25] MEDS: FAMOTIDINE 20 MG TAB PO SCH (10:00)
--- NOTE | 2025-01-25 18:51 | DVHPN2 ---
Subjective 01/25 patient remains at his baseline. She was now afebrile. LP not done as IR needs clearance with Neurology. We will continue empiric treatment for meningitis. Neurology also on board for possible seizure and breakthrough seizure and currently on Keppra 1250 b.i.d. we will continue treatment and continued resolution. Reviewed: H&P Changes from previous H/P or p: No Changes General: Per HPI Objective Vitals Vital Signs Date Time Temp Pulse Resp B/P (MAP) Pulse Ox O2 Delivery O2 Flow Rate FiO2 01/25/25 16:30 97.1 64 17 132/81 (98) 100 97.1 01/25/25 08:00 Nasal Cannula* 2 28 Intake/Output Intake and Output 01/25/25 07:00 Intake Total 1575 ml Output Total 2950 ml Balance -1375 ml Intake Oral 0 ml IV Total 1575 ml Output Urine Total 2950 ml Exam General Appearance: Alert, Oriented X0. HEENT: Atraumatic, PERRLA, EOMI, Mucous membrane moist/pink Respiratory: Clear to auscultation, Normal air movement Cardiovascular: Regular rate, Normal S1, Normal S2, No murmurs, no chest wall tenderness Abdominal: Normal bowel sounds, Soft, No tenderness, No hepatospenomegaly, No masses Extremities: No clubbing, No cyanosis, No edema, Normal pulses, No tenderness/swelling Skin: No rashes, No breakdown, No significant lesion Neuro: Rt sided hemiparesis, Strength at 5/5 X2 ext, Normal tone, Sensation intact, grossly intact cranial nerves. Psych/Mental Status: Mental status NL, Mood NL Negative Kernig and Brudzinski sign. Medications Current Medications Medications Dose Ordered Sig/Clara Route Start Time Stop Time Status Last Admin Dose Admin Aspirin 81 mg DAILY PO 01/24/25 10:00 Atorvastatin Calcium 40 mg HS PO 01/23/25 22:00 Hydralazine HCl 10 mg Q6HP PRN IV 01/23/25 21:45 Acetaminophen/ Hydrocodone Bitart 1 tab Q4HP PRN PO 01/23/25 21:45 Ondansetron HCl 4 mg Q4HP PRN IV 01/23/25 21:45 Docusate Sodium 100 mg BIDPRN PRN PO 01/23/25 21:45 Acetaminophen 650 mg Q6HP PRN PO 01/23/25 21:45 Amlodipine Besylate 5 mg DAILY PO 01/24/25 10:00 Nitroglycerin 0.4 mg Q5MINP PRN SL 01/23/25 23:15 Morphine Sulfate 2 mg Q30M PRN IV 01/23/25 23:15 Lorazepam 1 mg Q5MINP PRN IV 01/24/25 09:15 01/25/25 00:03 1 MG Sodium Chloride 1,000 ml @ 75 mls/hr [id number] IV 01/24/25 09:15 01/25/25 12:21 75 MLS/HR Vancomycin HCl 0 ml @ 0 mls/hr UD IV 01/24/25 12:00 Ceftriaxone Sodium/Dextrose 50 ml @ 50 mls/hr Q12HR@ IV 01/24/25 21:00 01/25/25 09:03 50 MLS/HR Levetiracetam 1250 mg/Dextrose 112.5 ml @ 450 mls/hr BID IV 01/24/25 22:00 01/25/25 11:21 450 MLS/HR Vancomycin HCl 150 ml @ 150 mls/hr Q8H IV 01/24/25 22:00 01/25/25 14:22 150 MLS/HR Enoxaparin Sodium 40 mg DAILY SC 01/25/25 10:00 01/25/25 09:03 40 MG Famotidine 20 mg DAILY PO 01/25/25 10:00 Laboratory Results Laboratory Tests 01/25/25 05:42 01/25/25 13:36 Chemistry Test 01/25/25 05:42 Calcium Level 8.9 mg/dL (8.7-10.4) Urinalysis Test 01/23/25 21:44 Urine Color Colorless (Yellow) Urine Clarity Clear (Clear) Urine pH 7.5 (5.0-9.0) Urine Specific [place] 1.014 (1.001-1.035) Urine Protein Negative (Negative) Urine Ketones Negative (Negative) Urine Blood Negative /uL (Negative) Urine Nitrite Negative (Negative) Urine Bilirubin Negative (Negative) Urine Urobilinogen Normal mg/dL (Negative) Urine Leukocyte Esterase Negative /uL (Negative) Urine RBC 1 /hpf (0 - 3) Urine Microscopic WBC 1 /HPF (0-3) Urine Squamous Epithelial Cells Few /hpf (<5) Urine Bacteria Few /hpf (None Seen) H Urine Hyaline Casts Few /lpf (0 - 2) Urine Mucus Few (None Seen) Urine Glucose Normal mg/dL (Normal) Microbiology Microbiology Date/Time Source Procedure Growth Status 01/23/25 16:40 Blood Blood Culture - Preliminary NO GROWTH AFTER 48 HOURS OF INCUBATION. Resulted Labs and/or images reviewed: Labs reviewed by me, Image(s) reviewed by me Assessment/Plan Assessment/Plan 01/25 patient remains at his baseline. She was now afebrile. LP not done as IR needs clearance with Neurology. We will continue empiric treatment for meningitis. Neurology also on board for possible seizure and breakthrough seizure and currently on Keppra 1250 b.i.d. we will continue treatment and continued resolution. # Sepsis likely due to meningitis # Acute metabolic encephalopathy likely due to seizure # Possible postictal confusion # Break through Seizure # History of epilepsy - CT head without contrast revealed no acute intracranial abnormality. - Blood culture pending - Neurology on board - Ordered MRI of the brain without contrast, EEG - Empirical antibiotic for possible meningitis - IV ceftriaxone 2 g b.i.d., IV vancomycin as per pharmacy. - Appreciate neurology consultation - possible LP after Neurology recommendation - CPK was mildly elevated because of seizure. - IV Ativan 1 mg q5min p.r.n. for seizure - UDS was positive for benzodiazepine and ordered Keppra level - IV Keppra 1250 mg b.i.d. - Seizure precaution. # Vitamin D deficiency - Vitamin D 21420 units Q 7D # PUD prophylaxis - Pepcid 20 mg p.o. daily # DVT prophylaxis - Lovenox 40 mg sc daily Goal of care could not be discussed as patient is A&O X 0 Plan discussed with: Patient My Orders Orders - BUSTER OHARA MD Procedure Category Date Status Time Communication Order ORDERS 01/25/25 Transmitted 15:01 Date of Service: Jan 25, 2025 Billing Provider: BUSTER OHARA MD Common Visit Codes: [id number] INP/OBS CARE(HIGH) BUSTER OHARA MD Jan 25, 2025 18:50
--- NOTE | 2025-01-25 23:53 | DVHPN2 ---
Progress Note - Dictate Date Seen: Jan 25, 2025 Medical Necessity Reason Pt with a Central, PICC or Fol: No Subjective Mr. Li is a 59 years old right-handed gentleman with a history of hypertension, stroke with residual right-sided weakness, seizure disorder, he came to the [facility] on 01/23/2025 with a chief complaint of seizure activity. At this time, he is sedated with Ativan because of seizure activity (respond to verbal stimuli, he follows), the history is obtained from his son On 01/23/2025, his son witnessed a intense seizure activity on him, in that he was shaking in both arms, legs, eyes rolling back, increased saliva from the mouth, the shaking persists for more than 10 minutes, and his son relates the patient was has never had a seizure attack so intense and so long He seizure problem started in the age of 20, in that he has spells event with loss of consciousness, shaking all over body, the seizure typically lasts for less than 1 minutes or no more than 2 minutes, the last time he had seizure was in 11/2024, and he had four seizures in 2023. He sees his family doctor for seizure control, and he is to see a neurologist soon, he is on Keppra 1000 mg b.i.d. In 08/2023, the patient was suffer from a stroke, which caused right-sided weakness, patient was has had a lot of improvement, he is able to use the right hand occasionally, he can walk with a walker, he was on aspirin 81 mg day, according to the reconciled medication list, he was supposed to take atorvastatin 40 mg daily [phone], father, poor historian Urinalysis, 01/23/2025: WBC: 1, urine leukocyte esterase: Likely UDS, : Benzo Plasma alcohol, 01/23/2025: 4.8 WBC/HB/PLT/MCV, 01/24/2025: 12.7/15.3/223/91.1, 01/25/2025: 8.2/14.5/198/91.1 BMP 01/24/2025: Unremarkable Lactic acid, 01/23/2025: 3.7, 1.3 HGB A1c, 01/24/2025: 5 TBI/AST/ALT/AP, 01/23/2025: Normal, 01/24/2025: 1.7/38/29/109 TSH, 01/23/2025: 1.07 CT head 01/23/2025: 1. No acute intracranial hemorrhage 2. No CT findings of territorial ischemia vital signs Vital Sign Date Time Temp Pulse Resp B/P (MAP) Pulse Ox O2 Delivery O2 Flow Rate FiO2 01/25/25 21:00 98.1 73 16 123/82 (96) 98 98.1 01/25/25 08:00 Nasal Cannula* 2 28 Total Intake and Output 01/24/25 01/24/25 01/25/25 15:00 23:00 07:00 Intake Total 425 ml 50 ml 1100 ml Output Total 2000 ml 950 ml Balance 425 ml -1950 ml 150 ml medications Current Medications Medications Dose Ordered Sig/Clara Route Start Time Stop Time Status Last Admin Dose Admin Aspirin 81 mg DAILY PO 01/24/25 10:00 Atorvastatin Calcium 40 mg HS PO 01/23/25 22:00 Hydralazine HCl 10 mg Q6HP PRN IV 01/23/25 21:45 Acetaminophen/ Hydrocodone Bitart 1 tab Q4HP PRN PO 01/23/25 21:45 Ondansetron HCl 4 mg Q4HP PRN IV 01/23/25 21:45 Docusate Sodium 100 mg BIDPRN PRN PO 01/23/25 21:45 Acetaminophen 650 mg Q6HP PRN PO 01/23/25 21:45 Amlodipine Besylate 5 mg DAILY PO 01/24/25 10:00 Nitroglycerin 0.4 mg Q5MINP PRN SL 01/23/25 23:15 Morphine Sulfate 2 mg Q30M PRN IV 01/23/25 23:15 Lorazepam 1 mg Q5MINP PRN IV 01/24/25 09:15 01/25/25 00:03 1 MG Sodium Chloride 1,000 ml @ 75 mls/hr [id number] IV 01/24/25 09:15 01/25/25 12:21 75 MLS/HR Vancomycin HCl 0 ml @ 0 mls/hr UD IV 01/24/25 12:00 Ceftriaxone Sodium/Dextrose 50 ml @ 50 mls/hr Q12HR@ IV 01/24/25 21:00 01/25/25 21:31 50 MLS/HR Levetiracetam 1250 mg/Dextrose 112.5 ml @ 450 mls/hr BID IV 01/24/25 22:00 01/25/25 21:31 450 MLS/HR Vancomycin HCl 150 ml @ 150 mls/hr Q8H IV 01/24/25 22:00 01/25/25 14:22 150 MLS/HR Enoxaparin Sodium 40 mg DAILY SC 01/25/25 10:00 01/25/25 09:03 40 MG Famotidine 20 mg DAILY PO 01/25/25 10:00 objective General: the patient is well developed and nourished. No acute distress. MENTAL STATUS: Subjective SPEECH, LANGUAGE, HIGHER CORTICAL FUNCTION: Minimal verbal output CRANIAL NERVES: Pupils are equal, round and reactive. EOMs full and conjugate. Facial sensation intact in all three divisions bilaterally. Mandibular strength intact. Mild Right facial weakness with some lower motor neuron features SENSATION: Sensation to touch and pinprick is ok MOTOR: Normal tone in the upper and lower extremity. Normal muscle bulk. No fasciculations. No abnormal movements or posturing. Muscle strength of the major groups in the left upper extremity is more than 4/5, lower extremity: More than 3/5. Muscle strength of he major groups in the right extremities is 0/5. REFLEXES: Deep tendon reflexes are symmetrical. No pathological reflexes. CEREBELLAR/COORDINATION: Deferred GAIT/STATION: deferred. laboratory and microbiology Laboratory Tests 01/25/25 13:36 01/25/25 05:42 Test 01/25/25 05:42 Range/Units Serum Glucose 73 L 74-106 mg/dL Problem List Status epileptics Grand mal seizure Right hemiplegia ? Hammad's paralysis ? New stroke Chronic stroke Altered mental status Postictal confusion Metabolic encephalopathy Fever Rule out meningitis Assessment/Plan Monitoring Supportive treatment Aerosol isolation Telemetry EEG MR brain scan Keppra 1250 mg b.i.d. Ativan for seizure breakthrough Aspirin 81 mg daily Lipitor 40 mg daily Up to chair Physical therapy ID consultation Re: meningitis This medical document was created using an electronic medical record system with [employer] system. Although this document has been carefully reviewed, there may still be some phonetic and typographical errors. These areas are purely typographical due to imperfections of the software programs, and do not reflect any compromise in the patient's medical care. Prognosis poor Dietary Evaluation Review Comments: 1) If NPO > 7 days, consider EN/TPN to meet at least 75% estimated daily needs 2) Initiate Pro-Stat @ 30 mL qd 3) Initiate vitamin C @ 500 mg bid and zinc sulfate @ 220 mg qd for 7-10 days 4) Advance to 2g Na diet when medically feasible, pending CARE MANAGEMENT ASSOCIATE approval 5) Follow-up with neurology Expected Outcomes/Goals: 1) patient to receive nutritional support within 7 days 2) labs and wound to improve 3) diet to advance 4) f/u in 2-3 days Plan discussed with: Other KARLENE JUAREZ MD Jan 25, 2025 23:53
[2025-01-26] VITALS (7 sets, daily range): BP systolic 103–135; BP diastolic 57–82; PULSE 63–84; RESP 15–18; TEMP 97.5–98.6; O2SAT 96–99
[2025-01-26 07:40] LABS: Basophils # (auto) 0 10 ^3/uL (0-0.2); Basophils % (auto) 0.4 % (0.0-2.0); Eosinophils # (auto) 0.2 10 ^3/uL (0-0.8); Eosinophils % (auto) 2.9 % (0.0-7.0); Hemoglobin 14.1 g/dL (13.5-17.5); Lymphocytes % (auto) 14.7 % (10.0-50.0); Mean Corpuscular Hemoglobin 32.2 pg (28.0-32.0); Mean Corpuscular Hgb Conc. 35.2 g/dL (32.0-36.0); Mean Corpuscular Volume 91.5 fL (80.0-100.0); Monocytes # (auto) 0.5 10 ^3/uL (0-1.3); Neutrophils # (auto) 4.9 10 ^3/uL (1.6-8.6); Platelet Count (auto) 199 10^3/uL (140-450); Red Blood Cells 4.37 10^6/uL (4.5-5.90); Red Cell Distribution Width 13.9 % (11.8-14.3); White Blood Cell 6.6 10^3/uL (4.4-10.8)
[2025-01-26 08:06] LABS: Alanine Aminotransferase 20 U/L (7-40); Alkaline Phosphatase 99 U/L (46-116); Anion Gap 14 (5-15); BUN/Creatinine Ratio 16.2 (10.0-20.0); Blood Urea Nitrogen 11 mg/dL (9-23); Calcium 8.9 mg/dL (8.7-10.4); Carbon Dioxide 23 mmol/L (20-31); Chloride 100 mmol/L (98-107); Potassium 3.8 mmol/L (3.5-5.1); Sodium 137 mmol/L (136-145); Total Protein 6.6 g/dL (5.7-8.2)
[2025-01-26 08:08] LABS: Aspartate Aminotransferase 22 U/L (13-40); Bilirubin, Total 0.8 mg/dL (0.2-1.0)
[2025-01-26 08:12] LABS: Glucose 66 mg/dL (74-106)
--- NOTE | 2025-01-26 11:00 | DVHPNRES ---
Progress Note Date Seen: Jan 26, 2025 Resident Creating Document: NASIMA SHAFER RESIDENT Medical Necessity Reason Pt with a Central, PICC or Fol: No Subjective Review of Systems Patient was seen and examined on the bedside. He is alert, Oriented X 0. Has multiple seizures stays less than 10 seconds since yesterday. Increased the dose of the Keppra to 1500 mg b.i.d. Objective vital signs Vital Sign Date Time Temp Pulse Resp B/P (MAP) Pulse Ox O2 Delivery O2 Flow Rate FiO2 01/26/25 08:53 127/77 01/26/25 08:00 76 15 Nasal Cannula* 2 01/26/25 05:00 97.7 99 97.7 Total Intake and Output 01/25/25 01/25/25 01/26/25 15:00 23:00 07:00 Intake Total 162.5 ml 112.5 ml 50 ml Output Total 400 ml 750 ml Balance 162.5 ml -287.5 ml -700 ml medications Current Medications Medications Dose Ordered Sig/Clara Route Start Time Stop Time Status Last Admin Dose Admin Aspirin 81 mg DAILY PO 01/24/25 10:00 Atorvastatin Calcium 40 mg HS PO 01/23/25 22:00 Hydralazine HCl 10 mg Q6HP PRN IV 01/23/25 21:45 Acetaminophen/ Hydrocodone Bitart 1 tab Q4HP PRN PO 01/23/25 21:45 Ondansetron HCl 4 mg Q4HP PRN IV 01/23/25 21:45 Docusate Sodium 100 mg BIDPRN PRN PO 01/23/25 21:45 Acetaminophen 650 mg Q6HP PRN PO 01/23/25 21:45 Amlodipine Besylate 5 mg DAILY PO 01/24/25 10:00 Nitroglycerin 0.4 mg Q5MINP PRN SL 01/23/25 23:15 Morphine Sulfate 2 mg Q30M PRN IV 01/23/25 23:15 Lorazepam 1 mg Q5MINP PRN IV 01/24/25 09:15 01/26/25 08:52 1 MG Sodium Chloride 1,000 ml @ 75 mls/hr [id number] IV 01/24/25 09:15 01/25/25 12:21 75 MLS/HR Vancomycin HCl 0 ml @ 0 mls/hr UD IV 01/24/25 12:00 Ceftriaxone Sodium/Dextrose 50 ml @ 50 mls/hr Q12HR@09,21 IV 01/24/25 21:00 01/26/25 08:52 50 MLS/HR Levetiracetam 1250 mg/Dextrose 112.5 ml @ 450 mls/hr BID IV 01/24/25 22:00 01/25/25 21:31 450 MLS/HR Vancomycin HCl 150 ml @ 150 mls/hr Q8H IV 01/24/25 22:00 01/25/25 14:22 150 MLS/HR Enoxaparin Sodium 40 mg DAILY SC 01/25/25 10:00 01/26/25 08:52 40 MG Famotidine 20 mg DAILY PO 01/25/25 10:00 Examination Physical examination: General Appearance: Alert, Oriented X0. HEENT: Atraumatic, PERRLA, EOMI, Mucous membrane moist/pink Respiratory: Clear to auscultation, Normal air movement Cardiovascular: Regular rate, Normal S1, Normal S2, No murmurs, no chest wall tenderness Abdominal: Normal bowel sounds, Soft, No tenderness, No hepatospenomegaly, No masses Extremities: No clubbing, No cyanosis, No edema, Normal pulses, No tenderness/swelling Skin: No rashes, No breakdown, No significant lesion Neuro: Rt sided hemiparesis, Strength at 5/5 X2 ext, Normal tone, Sensation intact, grossly intact cranial nerves. Psych/Mental Status: Mental status NL, Mood NL laboratory and microbiology Laboratory Tests 01/26/25 06:00 Test 01/26/25 06:00 Range/Units Serum Glucose 66 L 74-106 mg/dL Microbiology Date/Time Source Procedure Growth Status 01/23/25 16:40 Blood Blood Culture - Preliminary NO GROWTH AFTER 48 HOURS OF INCUBATION. Resulted Labs and/or images reviewed: Labs reviewed by me, Image(s) reviewed by me Problem List/Assessment/Plan Problem List/Assessment/Plan Assessment and plan: # Sepsis likely due to meningitis # Acute metabolic encephalopathy likely due to seizure # Possible postictal confusion # Break through Seizure # History of epilepsy - CT head without contrast revealed no acute intracranial abnormality. - Blood culture pending - Neurology on board - Ordered MRI of the brain without contrast, EEG - Empirical antibiotic for possible meningitis - IV ceftriaxone 2 g b.i.d., IV vancomycin as per pharmacy. - Appreciate neurology consultation - possible LP after Neurology recommendation - CPK was mildly elevated because of seizure. - IV Ativan 1 mg q5min p.r.n. for seizure - UDS was positive for benzodiazepine and ordered Keppra level - IV Keppra 1500 mg b.i.d. - Seizure precaution. - PPN per pharmacy # Vitamin D deficiency - Vitamin D 40479 units Q 7D # PUD prophylaxis - IV protonix 40 mg daily # DVT prophylaxis - Lovenox 40 mg sc daily Goal of care could not be discussed as patient is A&O X [address] Gamboa Plan discussed with: Patient, Other My Orders My Orders Orders - NASIMA SHAFER Procedure Category Date Status Time Vancomycin,Trough LAB 01/26/25 Logged 13:00 Vancomycin Per [facility] 01/25/25 In Process Pharmacy Protoc 14:31 Dietary Evaluation Review Comments: 1) If NPO > 7 days, consider EN/TPN to meet at least 75% estimated daily needs 2) Initiate Pro-Stat @ 30 mL qd 3) Initiate vitamin C @ 500 mg bid and zinc sulfate @ 220 mg qd for 7-10 days 4) Advance to 2g Na diet when medically feasible, pending ANTI [employer] WARF[employer] OPERATIONS OFFICER approval 5) Follow-up with neurology Expected Outcomes/Goals: 1) patient to receive nutritional support within 7 days 2) labs and wound to improve 3) diet to advance 4) f/u in 2-3 days Date of Service: Jan 26, 2025 Billing Provider: BUSTER OHARA MD Common Visit Codes: [id number] INP/OBS CARE(HIGH) NASIMA SHAFER RESIDENT Jan 26, 2025 11:00 BUSTER OHARA MD Jan 29, 2025 23:55
[2025-01-26] MEDS ORDERED: DEXTROSE (50%) 50ML SYRG IV SCH (15:30)
[2025-01-26] MEDS ORDERED: PPN PER PHARMACY 0 ML IV SCH (15:30)
[2025-01-26 16:27] LABS: Magnesium 2.1 mg/dL (1.6-2.6)
[2025-01-26 16:28] LABS: Phosphorus 2.8 mg/dL (2.4-5.1)
[2025-01-26] MEDS: levETIRAcetam 1500 mg/100ml 100 ML IV SCH (16:49)
[2025-01-26] MEDS: PANTOPRAZOLE 40 MG/10 ML VIAL INJ IV ONE (16:49)
[2025-01-26] MEDS: ACCU-CHEK COMFORT CURVE STRIP VI SCH (17:56)
[2025-01-26] MEDS: InsuLIN REG 1unit/0.01ml Soln (100units/ml) SC SCH (17:56)
[2025-01-26] MEDS: AMINO ACID INFUSION IN D10W 2,000 ML IV ONE (22:24)
[2025-01-27] VITALS (9 sets, daily range): BP systolic 134–158; BP diastolic 67–106; PULSE 67–95; RESP 17–18; TEMP 97.4–98; O2SAT 97–99
[2025-01-27 06:58] LABS: Basophils # (auto) 0 10 ^3/uL (0-0.2); Basophils % (auto) 0.4 % (0.0-2.0); Eosinophils # (auto) 0.2 10 ^3/uL (0-0.8); Eosinophils % (auto) 3.1 % (0.0-7.0); Hematocrit 36.7 % (41.0-53.0); Hemoglobin 13.3 g/dL (13.5-17.5); Lymphocytes % (auto) 15.2 % (10.0-50.0); Mean Corpuscular Hgb Conc. 36.3 g/dL (32.0-36.0); Mean Corpuscular Volume 90.8 fL (80.0-100.0); Monocytes # (auto) 0.5 10 ^3/uL (0-1.3); Monocytes % (auto) 7.1 % (0.0-12.0); Neutrophils % (auto) 74.2 % (37.0-80.0); Nucleated Red Blood Cells % 0.1 %; Platelet Count (auto) 225 10^3/uL (140-450); Red Blood Cells 4.04 10^6/uL (4.5-5.90); Red Cell Distribution Width 13.8 % (11.8-14.3); White Blood Cell 6.7 10^3/uL (4.4-10.8)
[2025-01-27 07:12] LABS: Alanine Aminotransferase 21 U/L (7-40); Alkaline Phosphatase 95 U/L (46-116); Anion Gap 10 (5-15); Carbon Dioxide 25 mmol/L (20-31); Chloride 103 mmol/L (98-107); Glucose 87 mg/dL (74-106); Potassium 3.8 mmol/L (3.5-5.1); Sodium 138 mmol/L (136-145)
[2025-01-27 07:13] LABS: BUN/Creatinine Ratio 13.7 (10.0-20.0); Blood Urea Nitrogen 10 mg/dL (9-23); Magnesium 1.9 mg/dL (1.6-2.6); Total Protein 6.5 g/dL (5.7-8.2)
[2025-01-27 07:14] LABS: Albumin 4.2 g/dL (3.2-4.8); Aspartate Aminotransferase 27 U/L (13-40)
[2025-01-27 07:15] LABS: Bilirubin, Total 0.7 mg/dL (0.2-1.0); Phosphorus 2.5 mg/dL (2.4-5.1)
[2025-01-27 07:28] LABS: Triglycerides 119 mg/dL (< 150)
[2025-01-27] MEDS: PANTOPRAZOLE 40 MG/10 ML VIAL INJ IV SCH (09:06)
[2025-01-27 10:47] LABS: Hepatitis B Core Total AB Negative (Negative)
[2025-01-27 11:13] LABS: Hepatitis A Total Antibody Negative (Negative); Hepatitis B Surface Antibody Negative (Negative); Hepatitis B Surface Antigen Negative (Negative); Hepatitis C Antibody Negative (Negative)
--- NOTE | 2025-01-27 16:38 | DVHPNRES ---
Progress Note Date Seen: Jan 27, 2025 Resident Creating Document: NASIMA SHAFER RESIDENT Medical Necessity Reason Pt with a Central, PICC or Fol: No Subjective Review of Systems Patient was seen and examined on the bedside. He is alert, Oriented X 1. Has 3 seizures stays less than 10 seconds since morning. Increased the dose of the Keppra to 1500 mg b.i.d. Waiting for MRI of the head without contrast. Objective vital signs Vital Sign Date Time Temp Pulse Resp B/P (MAP) Pulse Ox O2 Delivery O2 Flow Rate FiO2 01/27/25 13:00 97.4 67 17 134/67 (89) 97 97.4 01/27/25 08:15 Nasal Cannula* 2 28 Total Intake and Output 01/26/25 01/26/25 01/27/25 15:00 23:00 07:00 Intake Total 162.5 ml 300 ml 828 ml Output Total 350 ml 1800 ml Balance 162.5 ml -50 ml -972 ml medications Current Medications Medications Dose Ordered Sig/Clara Route Start Time Stop Time Status Last Admin Dose Admin Aspirin 81 mg DAILY PO 01/24/25 10:00 01/27/25 09:08 81 MG Atorvastatin Calcium 40 mg HS PO 01/23/25 22:00 Hydralazine HCl 10 mg Q6HP PRN IV 01/23/25 21:45 Acetaminophen/ Hydrocodone Bitart 1 tab Q4HP PRN PO 01/23/25 21:45 Ondansetron HCl 4 mg Q4HP PRN IV 01/23/25 21:45 Docusate Sodium 100 mg BIDPRN PRN PO 01/23/25 21:45 Acetaminophen 650 mg Q6HP PRN PO 01/23/25 21:45 Amlodipine Besylate 5 mg DAILY PO 01/24/25 10:00 01/27/25 09:09 5 MG Nitroglycerin 0.4 mg Q5MINP PRN SL 01/23/25 23:15 Morphine Sulfate 2 mg Q30M PRN IV 01/23/25 23:15 Lorazepam 1 mg Q5MINP PRN IV 01/24/25 09:15 01/27/25 08:25 1 MG Sodium Chloride 1,000 ml @ 75 mls/hr [id number] IV 01/24/25 09:15 01/26/25 14:11 75 MLS/HR Vancomycin HCl 0 ml @ 0 mls/hr UD IV 01/24/25 12:00 Ceftriaxone Sodium/Dextrose 50 ml @ 50 mls/hr Q12HR@09,21 IV 01/24/25 21:00 01/27/25 09:03 50 MLS/HR Vancomycin HCl 150 ml @ 150 mls/hr Q8H IV 01/24/25 22:00 01/27/25 14:00 150 MLS/HR Enoxaparin Sodium 40 mg DAILY SC 01/25/25 10:00 01/27/25 09:09 40 MG Levetiracetam 100 ml @ 400 mls/hr Q12H IV 01/26/25 15:30 01/27/25 15:40 400 MLS/HR Amino Acids 0 ml @ 0 mls/hr PER PHARMACY IV 01/26/25 15:30 Diagnostic Test (Pha) 1 strip Q6HR 01/26/25 18:00 01/27/25 12:23 1 STRIP Insulin Human Regular FOLLOW SLIDING SCALE Q6HR SC 01/26/25 18:00 Dextrose 50 ml UD IV 01/26/25 15:30 Pantoprazole Sodium 40 mg DAILY IV 01/27/25 10:00 01/27/25 09:06 40 MG Fat Emulsion Intravenous 100 ml/Sodium Chloride 20 meq/ Sodium Phosphate 40 meq/Potassium Acetate 20 meq/ Potassium Phosphate 22 meq/ Magnesium Sulfate 12 meq/ Multivitamins 10 ml/Chromium/ Copper/Manganese/ Zinc 1 ml/Amino Acids/Dextrose/ Purified Water 1,844 ml @ 77 mls/hr [id number] IV 01/27/25 22:00 01/28/25 21:59 Examination Physical examination: General Appearance: Alert, Oriented X1. HEENT: Atraumatic, PERRLA, EOMI, Mucous membrane moist/pink Respiratory: Clear to auscultation, Normal air movement Cardiovascular: Regular rate, Normal S1, Normal S2, No murmurs, no chest wall tenderness Abdominal: Normal bowel sounds, Soft, No tenderness, No hepatospenomegaly, No masses Extremities: No clubbing, No cyanosis, No edema, Normal pulses, No tenderness/swelling Skin: No rashes, No breakdown, No significant lesion Neuro: Rt sided hemiparesis, Strength at 5/5 X2 ext, Normal tone, Sensation intact, grossly intact cranial nerves. Psych/Mental Status: Mental status NL, Mood NL laboratory and microbiology Laboratory Tests 01/27/25 05:53 Test 01/27/25 05:53 Range/Units Serum Glucose 87 74-106 mg/dL Microbiology Date/Time Source Procedure Growth Status 01/23/25 16:40 Blood Blood Culture - Preliminary NO GROWTH AFTER 72 HOURS OF INCUBATION. Resulted Labs and/or images reviewed: Labs reviewed by me, Image(s) reviewed by me Problem List/Assessment/Plan Problem List/Assessment/Plan Assessment and plan: # Sepsis likely due to meningitis # Acute metabolic encephalopathy likely due to seizure # Possible postictal confusion # Break through Seizure # History of epilepsy - CT head without contrast revealed no acute intracranial abnormality. - Blood culture report revealed no growth in 24 hours of incubation - Neurology on board - Pending MRI of the brain without contrast, EEG - Empirical antibiotic for possible meningitis - IV ceftriaxone 2 g b.i.d., IV vancomycin as per pharmacy. - Appreciate neurology consultation - possible LP after Neurology recommendation - CPK was mildly elevated because of seizure. - IV Ativan 1 mg q5min p.r.n. for seizure - UDS was positive for benzodiazepine and ordered Keppra level - IV Keppra 1500 mg b.i.d. - Seizure precaution. - PPN per pharmacy # Vitamin D deficiency - Vitamin D 70441 units Q 7D # PUD prophylaxis - IV protonix 40 mg daily # DVT prophylaxis - Lovenox 40 mg sc daily Goal of care could not be discussed as patient is A&O X [address] Gamboa Plan discussed with: Patient, Other My Orders My Orders Orders - NASIMA SHAFER Procedure Category Date Status Time Ppn Per Pharmacy [facility] 01/26/25 In Process 22:00 Amino Acid PHA 01/27/25 In Process Infusion... W/Fat 22:00 Comprehensive LAB 01/28/25 Verified Metabolic Panel 04:00 Magnesium LAB 01/28/25 Verified 04:00 Phosphorus LAB 01/28/25 Verified 04:00 Ppn Per Pharmacy [facility] 01/27/25 In Process 22:00 Complete Blood Count LAB 01/28/25 Verified 04:00 Vancomycin,Trough LAB 01/28/25 Verified 13:00 Dietary Evaluation Review Comments: 1) If NPO > 7 days, consider EN/TPN to meet at least 75% estimated daily needs 2) Initiate Pro-Stat @ 30 mL qd 3) Initiate vitamin C @ 500 mg bid and zinc sulfate @ 220 mg qd for 7-10 days 4) Advance to 2g Na diet when medically feasible, pending REFLESHER approval 5) Follow-up with neurology Expected Outcomes/Goals: 1) patient to receive nutritional support within 7 days 2) labs and wound to improve 3) diet to advance 4) f/u in 2-3 days Date of Service: Jan 27, 2025 Billing Provider: BUSTER OHARA MD Common Visit Codes: [id number] INP/OBS CARE(HIGH) NASIMA SHAFER RESIDENT Jan 27, 2025 16:38 BUSTER OHARA MD Jan 30, 2025 00:07
[2025-01-27] MEDS: hydrALAZINE HCL 20 MG/ML VL IV PRN (17:44)
[2025-01-27] MEDS: DexAMETHasone INJECTION 10 MG in D5W 5% 50 ML IV ONE (19:26)
--- NOTE | 2025-01-27 20:35 | DVHCONRES ---
Date Seen: Jan 27, 2025 Resident Creating Document: MEHRDAD URIBE RESIDENT Referring Physician Dr Lowery Reason for Consultation Rule out meningitis History of Present Illness Elia Li is a 59-year-old male patient who presents to the ER brought by EMS due to breakthrough seizures which lasted approximally 10 minutes. Obtained history of present illness and past medical history from son since patient was postictal. Per son patient was found on the ground with very intense and long- lasting seizures, more than usual, prompting his visit to the ER. Patient does complain of fevers for the past two years. Denies neck stiffness, photophobia, palpitation, syncope, chest pain, dyspnea, abdominal pain, nausea, vomiting, diarrhea, genital or oral ulcers, recent travel, sick contacts and other new motor or sensory deficits. 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 Surgical history: Denies Family history: Noncontributory Social history: Lives in [place] with son (he is the caregiver), normally he mobilizes with walker. Denies current tobacco, alcohol and other drug abuse (per son he used to smoke and quit 25 years ago, does not know pack-year history). Allergies: Valium Home medication: Aspirin 81 mg p.o. daily, atorvastatin 40 mg p.o. daily, l evetiracetam a 1000 mg p.o. b.i.d., amlodipine 10 mg daily, Vimpat 50 mg daily. Patient seen and examined at bedside. Denies any meningeal symptoms, is alert and oriented in two spheres (not on time) this is his normal baseline, he communicates nodding and shaking head, he whispers all his answers. Past Medical History Per HPI Past Surgical History Per HPI Family History Per HPI Social History Per HPI Allergies: Coded Allergies: Diazepam (Verified Allergy, Unknown, 01/23/25) Home Meds Unable to Obtain Active Prescriptions or Reported Meds Current Medications Current Medications Medications (Trade) Dose Ordered Sig/Clara Route PRN Reason Start Time Stop Time Status Last Admin Pantoprazole Sodium (Protonix) 40 mg DAILY IV 01/27/25 10:00 01/27/25 09:06 Fat Emulsion Intravenous 100 ml/Sodium Chloride 20 meq/ Sodium Phosphate 40 meq/Potassium Acetate 20 meq/ Potassium Phosphate 22 meq/ Magnesium Sulfate 12 meq/ Multivitamins 10 ml/Chromium/ Copper/Manganese/ Zinc 1 ml/Amino Acids/Dextrose/ Purified Water 1,844 ml @ 77 mls/hr [id number] IV 01/27/25 22:00 01/28/25 21:59 Dexamethasone Sodium Phosphate 10 mg/Dextrose 51 ml @ 204 mls/hr Q6HR IV 01/28/25 00:00 Review of Systems Per HPI Vital Signs Vital Signs Date Time Temp Pulse Resp B/P (MAP) Pulse Ox O2 Delivery O2 Flow Rate FiO2 01/27/25 17:44 158/106 01/27/25 17:00 97.6 69 17 99 97.6 01/27/25 08:15 Nasal Cannula* 2 28 Physical Exam Patient lying in bed, in no acute distress General: Lucid, afebrile, mucosae are moist. Tongue is swollen and has hematoma (from biting tongue) Cardiovascular: Normal S1 and S2. No murmurs, gallops or rubs Respiratory: Normal ventilation mechanics. Clear lung sounds on auscultation Abdomen: Soft, nontender, no organomegaly, normal bowel sounds MSK/skin: Mobilizes 4 limbs. Skin is dry and warm Neurological: Oriented in 3 spheres. Right-sided hemiplegia, no other motor no sensitive deficits. Pupils are isocoric and reactive. Brudzinski and Kernig sign are negative, no neck stiffness Labs/Diagnostic Data Labs Test 01/27/25 17:48 01/27/25 13:22 01/27/25 05:53 01/24/25 10:05 Range/Units POC Glucose 99 70-106 mg/dl Vancomycin Level Trough 5.1 5-10 ug/mL White Blood Count 6.7 4.4-10.8 10^3/uL Red Blood Count 4.04 L 4.5-5.90 10^6/uL Hemoglobin 13.3 L 13.5-17.5 g/dL Hematocrit 36.7 L 41.0-53.0 % Mean Corpuscular Volume 90.8 80.0-100.0 fL Mean Corpuscular Hemoglobin 33.0 H 28.0-32.0 pg Mean Corpuscular Hemoglobin Concent 36.3 H 32.0-36.0 g/dL Red Cell Distribution Width 13.8 11.8-14.3 % Platelet Count 225 140-450 10^3/uL Mean Platelet Volume 9.3 6.9-10.8 fL Neutrophils (%) (Auto) 74.2 37.0-80.0 % Lymphocytes (%) (Auto) 15.2 10.0-50.0 % Monocytes (%) (Auto) 7.1 0.0-12.0 % Eosinophils (%) (Auto) 3.1 0.0-7.0 % Basophils (%) (Auto) 0.4 0.0-2.0 % Neutrophils # (Auto) 5.0 1.6-8.6 10 ^3/uL Lymphocytes # (Auto) 1.0 0.4-5.4 10 ^3/uL Monocytes # (Auto) 0.5 0-1.3 10 ^3/uL Eosinophils # (Auto) 0.2 0-0.8 10 ^3/uL Basophils # (Auto) 0 0-0.2 10 ^3/uL Nucleated Red Blood Cells 0.1 % Sodium Level 138 136-145 mmol/L Potassium Level 3.8 3.5-5.1 mmol/L Chloride Level 103 98-107 mmol/L Carbon Dioxide Level 25 20-31 mmol/L Anion Gap 10 5-15 Blood Urea Nitrogen 10 9-23 mg/dL Creatinine 0.73 0.700-1.30 mg/dL Glomerular Filtration Rate Calc 106 >90 mL/min BUN/Creatinine Ratio 13.7 10.0-20.0 Serum Glucose 87 74-106 mg/dL Calcium Level 9.0 8.7-10.4 mg/dL Phosphorus Level 2.5 2.4-5.1 mg/dL Magnesium Level 1.9 1.6-2.6 mg/dL Total Bilirubin 0.7 0.2-1.0 mg/dL Aspartate Amino Transferase (AST) 27 13-40 U/L Alanine Aminotransferase (ALT) 21 7-40 U/L Alkaline Phosphatase 95 46-116 U/L Total Protein 6.5 5.7-8.2 g/dL Albumin 4.2 3.2-4.8 g/dL Triglycerides Level 119 < 150 mg/dL Levetiracetam Level 41.8 H 10.0-40.0 ug/mL Test 01/24/25 04:53 01/23/25 21:44 01/23/25 16:58 01/23/25 15:11 Range/Units Hemoglobin A1c 5.0 <5.7 % A1C Creatine Kinase 809 H 46-171 U/L Vitamin D 25-Hydroxy 13.9 L 30.0-100 ng/mL Thyroid Stimulating Hormone (TSH) 1.07 0.55-4.78 uIU/mL Hepatitis A Antibody Total Negative Negative Hepatitis B Surface Antigen Negative Negative Hepatitis B Surface Antibody Negative Negative Hepatitis B Core Total Antibody Negative Negative Hepatitis C Antibody Negative Negative Urine Color Colorless Yellow Urine Clarity Clear Clear Urine pH 7.5 5.0-9.0 Urine Specific [place] 1.014 1.001-1.035 Urine Protein Negative Negative Urine Ketones Negative Negative Urine Blood Negative Negative /uL Urine Nitrite Negative Negative Urine Bilirubin Negative Negative Urine Urobilinogen Normal Negative mg/dL Urine Leukocyte Esterase Negative Negative /uL Urine RBC 1 0 - 3 /hpf Urine Microscopic WBC 1 0-3 /HPF Urine Squamous Epithelial Cells Few <5 /hpf Urine Bacteria Few H None Seen /hpf Urine Hyaline Casts Few 0 - 2 /lpf Urine Mucus Few None Seen Urine Glucose Normal Normal mg/dL Urine Opiates Screen Neg NEGATIVE Urine Fentanyl Screen Neg NEGATIVE Urine Barbiturates Screen Neg NEGATIVE Urine Phencyclidine Screen Neg NEGATIVE Urine Amphetamines Screen Neg NEGATIVE Urine Benzodiazepines Screen Pos NEGATIVE Urine Cocaine Screen Neg NEGATIVE Urine Cannabinoids Screen Neg NEGATIVE Lactic Acid Level 1.3 0.4-2.0 mmol/L D-Dimer, Quantitative 0.49 0.0-0.49 mg/L FEU Plasma/Serum Blood Alcohol 4.8 <10 mg/dL Microbiology Date/Time Source Procedure Growth Status 01/23/25 16:40 Blood Blood Culture - Preliminary NO GROWTH AFTER 72 HOURS OF INCUBATION. Resulted Assessment Sepsis probably secondary to meningitis/encephalitis/brain abscess Questionable Meningitis Rule out encephalitis and brain abscess Breakthrough seizures History of epilepsy History of multiple CVAs - currently wheelchair-bound Plan/Recommendation Recommend completing lumbar puncture, with analysis of CSF (HSV one and two, was Nile (not available in hospital), cytology, chemistry and culture). Placed order for Interventional Radiology to complete procedure No IV steroids needed at this time since it has been more than 24 hours since administration of IV antibiotics Ordered head MRI with and without contrast to rule out encephalitis versus brain abscess. Have ordered HIV, influenza and COVID. Could not order valley fever serologies. We will hold on acyclovir until obtaining results of lumbar puncture analysis Discontinue isolation since patient already completed 24 hours of IV ant ibiotics. Appreciate input of Neurology specialist. Rest of management per primary team. Discussed plan with Dr. Toussaint, patient, family and nurses: Have ordered lumbar puncture to be completed by interventional radiologist with pertinent CSF analysis, discontinued isolation for meningitis, ordered head MRI with and without IV contrast, no serous needed at this time, pending complementary workup. I was present with the resident during the history and exam. I discussed the case with the resident and agree with the findings and plan as documented in the resident's note. - Mason Toussaint Plan discussed with: Patient, Son, Other (Nurses and father) MEHRDAD URIBE RESIDENT Jan 27, 2025 20:35 MASON TOUSSAINT MD Feb 08, 2025 19:59
[2025-01-27] MEDS: PPN PER PHARMACY IV NR (22:40)
--- NOTE | 2025-01-27 23:18 | DVHPN2 ---
Progress Note - Dictate Date Seen: Jan 27, 2025 Medical Necessity Reason Pt with a Central, PICC or Fol: No Subjective Mr. Li is a 59 years old right-handed gentleman with a history of hypertension, stroke with residual right-sided weakness, seizure disorder, he came to the [facility] on 01/23/2025 with a chief complaint of seizure activity. At this time, he is sedated with Ativan because of seizure activity (respond to verbal stimuli, he follows), the history is obtained from his son He was more seizure activities morning, as a result his Keppra has been increased to 1500 mg b.i.d. He reports doing fine, he was awake, oriented to person, place, he was no idea about a year and the month, but he socially appropriate He has insomnia, but denies discomfort or restless feeling/pain in the feet or legs Urinalysis, 01/23/2025: WBC: 1, urine leukocyte esterase: Likely UDS, : Benzo Plasma alcohol, 01/23/2025: 4.8 WBC/HB/PLT/MCV, 01/24/2025: 12.7/15.3/223/91.1, 01/25/2025: 8.2/14.5/198/91.1 BMP 01/24/2025: Unremarkable Lactic acid, 01/23/2025: 3.7, 1.3 HGB A1c, 01/24/2025: 5 TBI/AST/ALT/AP, 01/23/2025: Normal, 01/24/2025: 1.7/38/29/109 TSH, 01/23/2025: 1.07 CT head 01/23/2025: 1. No acute intracranial hemorrhage 2. No CT findings of territorial ischemia vital signs Vital Sign Date Time Temp Pulse Resp B/P (MAP) Pulse Ox O2 Delivery O2 Flow Rate FiO2 01/27/25 21:00 97.4 89 18 143/95 (111) 97 97.4 01/27/25 08:15 Nasal Cannula* 2 28 Total Intake and Output 01/26/25 01/26/25 01/27/25 15:00 23:00 07:00 Intake Total 162.5 ml 300 ml 828 ml Output Total 350 ml 1800 ml Balance 162.5 ml -50 ml -972 ml medications Current Medications Medications Dose Ordered Sig/Clara Route Start Time Stop Time Status Last Admin Dose Admin Aspirin 81 mg DAILY PO 01/24/25 10:00 01/27/25 09:08 81 MG Atorvastatin Calcium 40 mg HS PO 01/23/25 22:00 Hydralazine HCl 10 mg Q6HP PRN IV 01/23/25 21:45 01/27/25 17:44 10 MG Acetaminophen/ Hydrocodone Bitart 1 tab Q4HP PRN PO 01/23/25 21:45 Ondansetron HCl 4 mg Q4HP PRN IV 01/23/25 21:45 Docusate Sodium 100 mg BIDPRN PRN PO 01/23/25 21:45 Acetaminophen 650 mg Q6HP PRN PO 01/23/25 21:45 Amlodipine Besylate 5 mg DAILY PO 01/24/25 10:00 01/27/25 09:09 5 MG Nitroglycerin 0.4 mg Q5MINP PRN SL 01/23/25 23:15 Morphine Sulfate 2 mg Q30M PRN IV 01/23/25 23:15 Lorazepam 1 mg Q5MINP PRN IV 01/24/25 09:15 01/27/25 17:23 1 MG Sodium Chloride 1,000 ml @ 75 mls/hr [id number] IV 01/24/25 09:15 01/27/25 17:23 75 MLS/HR Vancomycin HCl 0 ml @ 0 mls/hr UD IV 01/24/25 12:00 Ceftriaxone Sodium/Dextrose 50 ml @ 50 mls/hr Q12HR@,21 IV 01/24/25 21:00 01/27/25 21:51 50 MLS/HR Vancomycin HCl 150 ml @ 150 mls/hr Q8H IV 01/24/25 22:00 01/27/25 21:52 150 MLS/HR Enoxaparin Sodium 40 mg DAILY SC 01/25/25 10:00 01/27/25 09:09 40 MG Levetiracetam 100 ml @ 400 mls/hr Q12H IV 01/26/25 15:30 01/27/25 15:40 400 MLS/HR Amino Acids 0 ml @ 0 mls/hr PER PHARMACY IV 01/26/25 15:30 Diagnostic Test (Pha) 1 strip Q6HR 01/26/25 18:00 01/27/25 17:48 1 STRIP Insulin Human Regular FOLLOW SLIDING SCALE Q6HR SC 01/26/25 18:00 Dextrose 50 ml UD IV 01/26/25 15:30 Pantoprazole Sodium 40 mg DAILY IV 01/27/25 10:00 01/27/25 09:06 40 MG Fat Emulsion Intravenous 100 ml/Sodium Chloride 20 meq/ Sodium Phosphate 40 meq/Potassium Acetate 20 meq/ Potassium Phosphate 22 meq/ Magnesium Sulfate 12 meq/ Multivitamins 10 ml/Chromium/ Copper/Manganese/ Zinc 1 ml/Amino Acids/Dextrose/ Purified Water 1,844 ml @ 77 mls/hr [id number] IV 01/27/25 22:00 01/28/25 21:59 01/27/25 22:40 77 MLS/HR Dexamethasone Sodium Phosphate 10 mg/Dextrose 51 ml @ 204 mls/hr Q6HR IV 01/28/25 00:00 objective General: the patient is well developed and nourished. No acute distress. MENTAL STATUS: Subjective SPEECH, LANGUAGE, HIGHER CORTICAL FUNCTION: Minimal verbal output CRANIAL NERVES: Pupils are equal, round and reactive. EOMs full and conjugate. Facial sensation intact in all three divisions bilaterally. Mandibular strength intact. Mild Right facial weakness with some lower motor neuron features SENSATION: Sensation to touch and pinprick is ok MOTOR: Normal tone in the upper and lower extremity. Normal muscle bulk. No fasciculations. No abnormal movements or posturing. Muscle strength of the major groups in the left upper extremity is more than 4/5, lower extremity: More than 3/5. Muscle strength of he major groups in the right extremities is 0/5. REFLEXES: Deep tendon reflexes are symmetrical. No pathological reflexes. CEREBELLAR/COORDINATION: Deferred GAIT/STATION: deferred. laboratory and microbiology Laboratory Tests 01/27/25 05:53 Test 01/27/25 05:53 Range/Units Serum Glucose 87 74-106 mg/dL Problem List Status epileptics Grand mal seizure Right hemiplegia ? Hammad's paralysis ? New stroke Chronic stroke Altered mental status Postictal confusion Metabolic encephalopathy Fever Rule out meningitis Assessment/Plan Monitoring Supportive treatment Aerosol isolation Telemetry EEG MR brain scan Keppra 1500 mg b.i.d. Ativan for seizure breakthrough Aspirin 81 mg daily Lipitor 40 mg daily Up to chair Physical therapy ID consultation Re: meningitis This medical document was created using an electronic medical record system with Dragon computerized dictation system. Although this document has been carefully reviewed, there may still be some phonetic and typographical errors. These areas are purely typographical due to imperfections of the software programs, and do not reflect any compromise in the patient's medical care. Prognosis poor Dietary Evaluation Review Comments: 1) If NPO > 7 days, consider EN/TPN to meet at least 75% estimated daily needs 2) Initiate Pro-Stat @ 30 mL qd 3) Initiate vitamin C @ 500 mg bid and zinc sulfate @ 220 mg qd for 7-10 days 4) Advance to 2g Na diet when medically feasible, pending CIRCLE SHEAR OPERATOR approval 5) Follow-up with neurology Expected Outcomes/Goals: 1) patient to receive nutritional support within 7 days 2) labs and wound to improve 3) diet to advance 4) f/u in 2-3 days Plan discussed with: Other KARLENE JUAREZ MD Jan 27, 2025 23:18
[2025-01-28] VITALS (8 sets, daily range): BP systolic 128–144; BP diastolic 77–91; PULSE 64–86; RESP 15–18; TEMP 97–98.2; O2SAT 97–100
[2025-01-28] MEDS: DexAMETHasone INJECTION 10 MG in D5W 5% 50 ML IV SCH (00:24)
[2025-01-28 06:05] LABS: Basophils # (auto) 0 10 ^3/uL (0-0.2); Basophils % (auto) 0.1 % (0.0-2.0); Eosinophils # (auto) 0 10 ^3/uL (0-0.8); Hematocrit 43.4 % (41.0-53.0); Hemoglobin 15.4 g/dL (13.5-17.5); Lymphocytes # (auto) 0.3 10 ^3/uL (0.4-5.4); Lymphocytes % (auto) 5.1 % (10.0-50.0); Mean Corpuscular Hemoglobin 32.4 pg (28.0-32.0); Mean Corpuscular Hgb Conc. 35.5 g/dL (32.0-36.0); Mean Corpuscular Volume 91.1 fL (80.0-100.0); Monocytes # (auto) 0 10 ^3/uL (0-1.3); Monocytes % (auto) 0.8 % (0.0-12.0); Neutrophils # (auto) 5.2 10 ^3/uL (1.6-8.6); Nucleated Red Blood Cells % 0.1 %; Platelet Count (auto) 236 10^3/uL (140-450); Red Blood Cells 4.76 10^6/uL (4.5-5.90); White Blood Cell 5.5 10^3/uL (4.4-10.8)
[2025-01-28 06:30] LABS: Alanine Aminotransferase 22 U/L (7-40); Albumin 4.7 g/dL (3.2-4.8); Alkaline Phosphatase 100 U/L (46-116); Anion Gap 12 (5-15); Aspartate Aminotransferase 28 U/L (13-40); BUN/Creatinine Ratio 10.4 (10.0-20.0); Calcium 9.6 mg/dL (8.7-10.4); Carbon Dioxide 21 mmol/L (20-31); Chloride 102 mmol/L (98-107); Magnesium 2.1 mg/dL (1.6-2.6); Potassium 4.2 mmol/L (3.5-5.1); Total Protein 7.8 g/dL (5.7-8.2)
[2025-01-28 06:31] LABS: Bilirubin, Total 0.7 mg/dL (0.2-1.0); Phosphorus 3.8 mg/dL (2.4-5.1)
[2025-01-28 06:32] LABS: Blood Urea Nitrogen 7 mg/dL (9-23); Glucose 132 mg/dL (74-106); Sodium 135 mmol/L (136-145)
--- NOTE | 2025-01-28 07:09 | ECG ---
[facility] Test Date: 2025-01-23 Test Time: 14:22:55 Pat Name: VLADISLAV SINGH Department: ED Room: 0280T Gender: M [employer] Collector: ULISSES : 1965 Requested By: LARRY SHEARER Order Number: [id number] Reading MD: Rolando Faust Measurements Intervals [place] Rate: 116 P: -3 CA: 168 QRS: -45 QRSD: 73 T: 64 QT: 306 QTc: 426 Interpretive Statements Sinus tachycardia Probable left atrial enlargement Inferior infarct, old Electronically Signed On 01-29-2025 21:04:06 PDT by Rolando Faust Please click the below link to view image of tracing.
[2025-01-28 09:19] LABS: INR 1.05 (0.9-1.15); Partial Thromboplastin Time 28.8 SEC (24.5-34.5); Prothrombin Time 11.1 sec (9.3-11.8)
[2025-01-28] MEDS: LIDOCAINE 2%HCL (LOCAL ANESTH.) INJ 10ml MDV ONE (13:47)
--- NOTE | 2025-01-28 14:58 | DVHPN2 ---
Progress Note - Dictate Date Seen: Jan 28, 2025 Medical Necessity Reason Pt with a Central, PICC or Fol: No Subjective Mr. Li is a 59 years old right-handed gentleman with a history of hypertension, stroke with residual right-sided weakness, seizure disorder, he came to the [facility] on 01/23/2025 with a chief complaint of seizure activity. I have seen and examined the patient, I have talked to his sitter, nurse, he is doing better today, more energized, he talks more, oriented to person, place, he knows year No seizure today He just had lumbar puncture CSF profile, 01/28/2025: WBC: Protein: 55, glucose: Urinalysis, 01/23/2025: WBC: 1, urine leukocyte esterase: Likely UDS, : Benzo Plasma alcohol, 01/23/2025: 4.8 WBC/HB/PLT/MCV, 01/24/2025: 12.7/15.3/223/91.1, 01/25/2025: 8.2/14.5/198/91.1 BMP 01/24/2025: Unremarkable Lactic acid, 01/23/2025: 3.7, 1.3 HGB A1c, 01/24/2025: 5 TBI/AST/ALT/AP, 01/23/2025: Normal, 01/24/2025: 1.7/38/29/109 TSH, 01/23/2025: 1.07 CT head 01/23/2025: 1. No acute intracranial hemorrhage 2. No CT findings of territorial ischemia vital signs Vital Sign Date Time Temp Pulse Resp B/P (MAP) Pulse Ox O2 Delivery O2 Flow Rate FiO2 01/28/25 13:00 97.0 97.0 01/28/25 13:00 73 15 134/77 (96) 98 01/27/25 20:00 Room Air* 0 21 Total Intake and Output 01/27/25 01/27/25 01/28/25 15:00 23:00 07:00 Intake Total 50 ml 350 ml 150 ml Output Total 1350 ml 1100 ml Balance 50 ml -1000 ml -950 ml medications Current Medications Medications Dose Ordered Sig/Clara Route Start Time Stop Time Status Last Admin Dose Admin Aspirin 81 mg DAILY PO 01/24/25 10:00 01/28/25 11:02 81 MG Atorvastatin Calcium 40 mg HS PO 01/23/25 22:00 Hydralazine HCl 10 mg Q6HP PRN IV 01/23/25 21:45 01/27/25 17:44 10 MG Acetaminophen/ Hydrocodone Bitart 1 tab Q4HP PRN PO 01/23/25 21:45 Ondansetron HCl 4 mg Q4HP PRN IV 01/23/25 21:45 Docusate Sodium 100 mg BIDPRN PRN PO 01/23/25 21:45 Acetaminophen 650 mg Q6HP PRN PO 01/23/25 21:45 Amlodipine Besylate 5 mg DAILY PO 01/24/25 10:00 01/28/25 11:01 5 MG Nitroglycerin 0.4 mg Q5MINP PRN SL 01/23/25 23:15 Morphine Sulfate 2 mg Q30M PRN IV 01/23/25 23:15 Lorazepam 1 mg Q5MINP PRN IV 01/24/25 09:15 01/27/25 17:23 1 MG Sodium Chloride 1,000 ml @ 75 mls/hr [id number] IV 01/24/25 09:15 01/28/25 21:59 01/28/25 05:19 75 MLS/HR Vancomycin HCl 0 ml @ 0 mls/hr UD IV 01/24/25 12:00 Ceftriaxone Sodium/Dextrose 50 ml @ 50 mls/hr Q12HR@09,21 IV 01/24/25 21:00 01/28/25 11:00 50 MLS/HR Vancomycin HCl 150 ml @ 150 mls/hr Q8H IV 01/24/25 22:00 01/28/25 05:20 150 MLS/HR Enoxaparin Sodium 40 mg DAILY SC 01/25/25 10:00 01/28/25 11:00 40 MG Levetiracetam 100 ml @ 400 mls/hr Q12H IV 01/26/25 15:30 01/28/25 03:25 400 MLS/HR Amino Acids 0 ml @ 0 mls/hr PER PHARMACY IV 01/26/25 15:30 Diagnostic Test (Pha) 1 strip Q6HR 01/26/25 18:00 01/28/25 13:42 1 STRIP Insulin Human Regular FOLLOW SLIDING SCALE Q6HR SC 01/26/25 18:00 01/28/25 13:43 2 UNITS Dextrose 50 ml UD IV 01/26/25 15:30 Pantoprazole Sodium 40 mg DAILY IV 01/27/25 10:00 01/28/25 11:00 40 MG Fat Emulsion Intravenous 100 ml/Sodium Chloride 20 meq/ Sodium Phosphate 40 meq/Potassium Acetate 20 meq/ Potassium Phosphate 22 meq/ Magnesium Sulfate 12 meq/ Multivitamins 10 ml/Chromium/ Copper/Manganese/ Zinc 1 ml/Amino Acids/Dextrose/ Purified Water 1,844 ml @ 77 mls/hr [id number] IV 01/27/25 22:00 01/28/25 21:59 01/27/25 22:40 77 MLS/HR Dexamethasone Sodium Phosphate 10 mg/Dextrose 51 ml @ 204 mls/hr Q6HR IV 01/28/25 00:00 01/28/25 13:22 204 MLS/HR Melatonin 5 mg HS PRN PO 01/28/25 00:30 Fat Emulsion Intravenous 150 ml/Sodium Chloride 40 meq/ Sodium Acetate 40 meq/Potassium Acetate 20 meq/ Magnesium Sulfate 12 meq/ Multivitamins 10 ml/Chromium/ Copper/Manganese/ Zinc 1 ml/Amino Acids/Dextrose/ Purified Water 2,204 ml @ 91 mls/hr [id number] IV 01/28/25 22:00 01/29/25 21:59 Sodium Chloride 1,000 ml @ 40 mls/hr Q24H IV 01/28/25 22:00 objective General: the patient is well developed and nourished. No acute distress. MENTAL STATUS: Subjective SPEECH, LANGUAGE, HIGHER CORTICAL FUNCTION: No aphasia or dysarthria CRANIAL NERVES: Pupils are equal, round and reactive. EOMs full and conjugate. Facial sensation intact in all three divisions bilaterally. Mandibular strength intact. Mild Right facial weakness with some lower motor neuron features SENSATION: Sensation to touch and pinprick is ok MOTOR: Normal tone in the upper and lower extremity. Normal muscle bulk. No fasciculations. No abnormal movements or posturing. Muscle strength of the major groups in the left extremity is more than 4/5. Muscle strength of he major groups in the right extremities is: Upper extremity:3-4/5, lower extremity: 2/5. REFLEXES: Deep tendon reflexes are symmetrical. No pathological reflexes. CEREBELLAR/COORDINATION: Deferred GAIT/STATION: deferred. laboratory and microbiology Laboratory Tests 01/28/25 05:30 Test 01/28/25 05:30 Range/Units Serum Glucose 132 H 74-106 mg/dL Problem List Status epileptics Grand mal seizure Right hemiplegia ? Hammad's paralysis ? New stroke Chronic stroke Altered mental status Postictal confusion Metabolic encephalopathy Fever Rule out meningitis Assessment/Plan Monitoring Supportive treatment Aerosol isolation Telemetry CSF profile EEG MR brain scan Keppra 1500 mg b.i.d. Ativan for seizure breakthrough Aspirin 81 mg daily Lipitor 40 mg daily Up to chair Physical therapy ID consultation Re: meningitis This medical document was created using an electronic medical record system with [employer] dictation system. Although this document has been carefully reviewed, there may still be some phonetic and typographical errors. These areas are purely typographical due to imperfections of the software programs, and do not reflect any compromise in the patient's medical care. Prognosis poor Dietary Evaluation Review Comments: 1) If NPO > 7 days, consider EN/TPN to meet at least 75% estimated daily needs 2) Initiate Pro-Stat @ 30 mL qd 3) Initiate vitamin C @ 500 mg bid and zinc sulfate @ 220 mg qd for 7-10 days 4) Advance to 2g Na diet when medically feasible, pending TIMBER GIRDLER approval 5) Follow-up with neurology Expected Outcomes/Goals: 1) patient to receive nutritional support within 7 days 2) labs and wound to improve 3) diet to advance 4) f/u in 2-3 days Plan discussed with: Other KARLENE JUAREZ MD Jan 28, 2025 14:58
--- NOTE | 2025-01-28 15:17 | DVH ---
CT LS SPINE WO CONTRAST, HISTORY: LUMBAR PUNCTURE COMPARISON: None PROCEDURE: After obtaining written informed consent, the patient was placed left lateral decubitus on the CT table. The patient's identity and the procedure were confirmed by the timeout process. Under CT, a midline approach to the L3-4 interlaminar space was selected and the overlying skin anest hetized with several mL of 1% lidocaine. A 22G spinal needle was advanced under CT into the thecal sa c with return of clear CSF. 6 mL of CSF was collected in four aliquots and sent to [facility]. The needle was removed and a bandage placed. The patient tolerated the procedure well without immediate complication. DAP [id number] FINDINGS: Stored CT images show the needle positioned with its tip in the spinal canal at the level o f L3-4. IMPRESSION: CT guided lumbar puncture for CSF analysis, as detailed above.
--- NOTE | 2025-01-28 15:17 | DVH ---
CT LS SPINE WO CONTRAST, HISTORY: LUMBAR PUNCTURE COMPARISON: None PROCEDURE: After obtaining written informed consent, the patient was placed left lateral decubitus on the CT table. The patient's identity and the procedure were confirmed by the timeout process. Under CT, a midline approach to the L3-4 interlaminar space was selected and the overlying skin anest hetized with several mL of 1% lidocaine. A 22G spinal needle was advanced under CT into the thecal sa c with return of clear CSF. 6 mL of CSF was collected in four aliquots and [facility] The needle was removed and a bandage placed. The patient tolerated the procedure well without immediate complication. DAP [id number] FINDINGS: Stored CT images show the needle positioned with its tip in the spinal canal at the level o f L3-4. IMPRESSION: CT guided lumbar puncture for CSF analysis, as detailed above.
[2025-01-28] MEDS ORDERED: LORazepam 2MG/ML-1ML VIAL IV PRN (15:30)
[2025-01-28 16:04] LABS: CSF White Blood Cells 5 CUMM (0-5); Description,CSF CLEAR
--- NOTE | 2025-01-28 16:36 | DVHPNRES ---
Progress Note Date Seen: Jan 28, 2025 Resident Creating Document: NASIMA SHAFER RESIDENT Medical Necessity Reason Pt with a Central, PICC or Fol: No Subjective Review of Systems Patient was seen and examined on the bedside. He is alert oriented x1. Patient did not have any seizure since morning. Patient was scheduled for LP today. Infectious disease is also in the board and recommended discontinue isolation, lumbar puncture and MRI of the head without contrast. Objective vital signs Vital Sign Date Time Temp Pulse Resp B/P (MAP) Pulse Ox O2 Delivery O2 Flow Rate FiO2 01/28/25 16:28 98.2 70 15 128/84 (99) 100 98.2 01/28/25 08:05 Nasal Cannula* 2 28 Total Intake and Output 01/27/25 01/27/25 01/28/25 15:00 23:00 07:00 Intake Total 50 ml 350 ml 150 ml Output Total 1350 ml 1100 ml Balance 50 ml -1000 ml -950 ml medications Current Medications Medications Dose Ordered Sig/Clara Route Start Time Stop Time Status Last Admin Dose Admin Aspirin 81 mg DAILY PO 01/24/25 10:00 01/28/25 11:02 81 MG Atorvastatin Calcium 40 mg HS PO 01/23/25 22:00 Hydralazine HCl 10 mg Q6HP PRN IV 01/23/25 21:45 01/27/25 17:44 10 MG Acetaminophen/ Hydrocodone Bitart 1 tab Q4HP PRN PO 01/23/25 21:45 Ondansetron HCl 4 mg Q4HP PRN IV 01/23/25 21:45 Docusate Sodium 100 mg BIDPRN PRN PO 01/23/25 21:45 Acetaminophen 650 mg Q6HP PRN PO 01/23/25 21:45 Amlodipine Besylate 5 mg DAILY PO 01/24/25 10:00 01/28/25 11:01 5 MG Nitroglycerin 0.4 mg Q5MINP PRN SL 01/23/25 23:15 Morphine Sulfate 2 mg Q30M PRN IV 01/23/25 23:15 Lorazepam 1 mg Q5MINP PRN IV 01/24/25 09:15 01/27/25 17:23 1 MG Sodium Chloride 1,000 ml @ 75 mls/hr [id number] IV 01/24/25 09:15 01/28/25 21:59 01/28/25 05:19 75 MLS/HR Vancomycin HCl 0 ml @ 0 mls/hr UD IV 01/24/25 12:00 Ceftriaxone Sodium/Dextrose 50 ml @ 50 mls/hr Q12HR@09,21 IV 01/24/25 21:00 01/28/25 11:00 50 MLS/HR Vancomycin HCl 150 ml @ 150 mls/hr Q8H IV 01/24/25 22:00 01/28/25 16:19 150 MLS/HR Enoxaparin Sodium 40 mg DAILY SC 01/25/25 10:00 01/28/25 11:00 40 MG Levetiracetam 100 ml @ 400 mls/hr Q12H IV 01/26/25 15:30 01/28/25 03:25 400 MLS/HR Amino Acids 0 ml @ 0 mls/hr PER PHARMACY IV 01/26/25 15:30 Diagnostic Test (Pha) 1 strip Q6HR 01/26/25 18:00 01/28/25 13:42 1 STRIP Insulin Human Regular FOLLOW SLIDING SCALE Q6HR SC 01/26/25 18:00 01/28/25 13:43 2 UNITS Dextrose 50 ml UD IV 01/26/25 15:30 Pantoprazole Sodium 40 mg DAILY IV 01/27/25 10:00 01/28/25 11:00 40 MG Fat Emulsion Intravenous 100 ml/Sodium Chloride 20 meq/ Sodium Phosphate 40 meq/Potassium Acetate 20 meq/ Potassium Phosphate 22 meq/ Magnesium Sulfate 12 meq/ Multivitamins 10 ml/Chromium/ Copper/Manganese/ Zinc 1 ml/Amino Acids/Dextrose/ Purified Water 1,844 ml @ 77 mls/hr [id number] IV 01/27/25 22:00 01/28/25 21:59 01/27/25 22:40 77 MLS/HR Dexamethasone Sodium Phosphate 10 mg/Dextrose 51 ml @ 204 mls/hr Q6HR IV 01/28/25 00:00 01/28/25 13:22 204 MLS/HR Melatonin 5 mg HS PRN PO 01/28/25 00:30 Fat Emulsion Intravenous 150 ml/Sodium Chloride 40 meq/ Sodium Acetate 40 meq/Potassium Acetate 20 meq/ Magnesium Sulfate 12 meq/ Multivitamins 10 ml/Chromium/ Copper/Manganese/ Zinc 1 ml/Amino Acids/Dextrose/ Purified Water 2,204 ml @ 91 mls/hr [id number] IV 01/28/25 22:00 01/29/25 21:59 Sodium Chloride 1,000 ml @ 40 mls/hr Q24H IV 01/28/25 22:00 Lorazepam 1 mg ONCE PRN IV 01/28/25 15:30 Examination Physical examination: General Appearance: Alert, Oriented X1, Cooperative, No acute distress HEENT: Atraumatic, PERRLA, EOMI, Mucous membrane moist/pink Respiratory: Clear to auscultation, Normal air movement Cardiovascular: Regular rate, Normal S1, Normal S2, No murmurs, no chest wall tenderness Abdominal: Normal bowel sounds, Soft, No tenderness, No hepatospenomegaly, No masses Extremities: No clubbing, No cyanosis, No edema, Normal pulses, No tenderness/swelling Skin: No rashes, No breakdown, No significant lesion Neuro: Normal speech, Strength at 5/5 X4 ext, Normal tone, Sensation intact, Cranial nerves 3-12 NL, Reflexes 2+ Psych/Mental Status: Mental status NL, Mood NL laboratory and microbiology Laboratory Tests 01/28/25 05:30 Test 01/28/25 05:30 Range/Units Serum Glucose 132 H 74-106 mg/dL Microbiology Date/Time Source Procedure Growth Status 01/28/25 14:10 Cerebral Spinal Fluid Gram Stain - Final Resulted 01/28/25 14:10 Cerebral Spinal Fluid CSF Culture & Gram Stain (Tube 2) M Pending Resulted 01/23/25 16:40 Blood Blood Culture - Preliminary NO GROWTH AFTER 72 HOURS OF INCUBATION. Resulted Labs and/or images reviewed: Labs reviewed by me, Image(s) reviewed by me Problem List/Assessment/Plan Problem List/Assessment/Plan Assessment and plan: # Sepsis likely due to meningitis # Acute metabolic encephalopathy likely due to seizure # Possible postictal confusion # Break through Seizure # History of epilepsy - CT head without contrast revealed no acute intracranial abnormality. - Blood culture report revealed no growth in 24 hours of incubation - Neurology on board - Pending MRI of the brain without contrast, EEG - Patient underwent LP today and CSF was sent for studies - Empirical antibiotic for possible meningitis - IV ceftriaxone 2 g b.i.d., IV vancomycin as per pharmacy.( started on 01/24/25) - IV dexamethasone 10 mg q.6 hours( started on 01/27/25) - Appreciate neurology consultation - CPK was mildly elevated because of seizure. - IV Ativan 1 mg q5min p.r.n. for seizure - UDS was positive for benzodiazepine and ordered Keppra level - IV Keppra 1500 mg b.i.d. - Seizure precaution. - PPN per pharmacy # Vitamin D deficiency - Vitamin D 79647 units Q 7D # PUD prophylaxis - IV protonix 40 mg daily # DVT prophylaxis - Lovenox 40 mg sc daily Goal of care could not be discussed as patient is A&O X [address] Gamboa Plan discussed with: Patient, Other My Orders My Orders Orders - NASIMA SHAFER Procedure Category Date Status Time Dexamethasone PHA 01/28/25 In Process Injection (Decadron 00:00 Strict Aspiration KENAN 01/28/25 In Process Precautions 10:44 Amino Acid PHA 01/28/25 In Process Infusion... W/Fat 22:00 Renal Function Test LAB 01/29/25 Verified 06:00 Magnesium LAB 01/29/25 Verified 06:00 Ppn Per Pharmacy KENAN 01/28/25 In Process 22:[address] 01/28/25 Resulted Needle Placeme 13:22 Ls Spine Wo Contrast CT 01/28/25 Resulted 13:22 Sodium Chloride 0.9% PHA 01/28/25 In Process 22:00 Dietary Evaluation Review Comments: 1) If NPO > 7 days, consider EN/TPN to meet at least 75% estimated daily needs 2) Initiate Pro-Stat @ 30 mL qd 3) Initiate vitamin C @ 500 mg bid and zinc sulfate @ 220 mg qd for 7-10 days 4) Advance to 2g Na diet when medically feasible, pending ROAD CROSSING GUARD approval 5) Follow-up with neurology Expected Outcomes/Goals: 1) patient to receive nutritional support within 7 days 2) labs and wound to improve 3) diet to advance 4) f/u in 2-3 days Date of Service: Jan 28, 2025 Billing Provider: BUSTER OHARA MD Common Visit Codes: [id number] INP/OBS CARE(HIGH) NASIMA SHAFER Jan 28, 2025 16:36 BUSTER OHARA MD Jan 30, 2025 00:13
--- NOTE | 2025-01-28 19:21 | DVHPN2 ---
Consult Progress Note Date Seen: Jan 28, 2025 Objective vital signs Vital Sign Date Time Temp Pulse Resp B/P (MAP) Pulse Ox O2 Delivery O2 Flow Rate FiO2 01/28/25 16:28 98.2 70 15 128/84 (99) 100 98.2 01/28/25 08:05 Nasal Cannula* 2 28 Total Intake and Output 01/27/25 01/27/25 01/28/25 15:00 23:00 07:00 Intake Total 50 ml 350 ml 150 ml Output Total 1350 ml 1100 ml Balance 50 ml -1000 ml -950 ml medications Current Medications Medications Dose Ordered Sig/Clara Route Start Time Stop Time Status Last Admin Dose Admin Aspirin 81 mg DAILY PO 01/24/25 10:00 01/28/25 11:02 81 MG Atorvastatin Calcium 40 mg HS PO 01/23/25 22:00 Hydralazine HCl 10 mg Q6HP PRN IV 01/23/25 21:45 01/27/25 17:44 10 MG Acetaminophen/ Hydrocodone Bitart 1 tab Q4HP PRN PO 01/23/25 21:45 Ondansetron HCl 4 mg Q4HP PRN IV 01/23/25 21:45 Docusate Sodium 100 mg BIDPRN PRN PO 01/23/25 21:45 Acetaminophen 650 mg Q6HP PRN PO 01/23/25 21:45 Amlodipine Besylate 5 mg DAILY PO 01/24/25 10:00 01/28/25 11:01 5 MG Nitroglycerin 0.4 mg Q5MINP PRN SL 01/23/25 23:15 Morphine Sulfate 2 mg Q30M PRN IV 01/23/25 23:15 Lorazepam 1 mg Q5MINP PRN IV 01/24/25 09:15 01/27/25 17:23 1 MG Sodium Chloride 1,000 ml @ 75 mls/hr [id number] IV 01/24/25 09:15 01/28/25 21:59 01/28/25 05:19 75 MLS/HR Vancomycin HCl 0 ml @ 0 mls/hr UD IV 01/24/25 12:00 Ceftriaxone Sodium/Dextrose 50 ml @ 50 mls/hr Q12HR@09,21 IV 01/24/25 21:00 01/28/25 11:00 50 MLS/HR Vancomycin HCl 150 ml @ 150 mls/hr Q8H IV 01/24/25 22:00 01/28/25 16:19 150 MLS/HR Enoxaparin Sodium 40 mg DAILY SC 01/25/25 10:00 01/28/25 11:00 40 MG Levetiracetam 100 ml @ 400 mls/hr Q12H IV 01/26/25 15:30 01/28/25 17:39 400 MLS/HR Amino Acids 0 ml @ 0 mls/hr PER PHARMACY IV 01/26/25 15:30 Diagnostic Test (Pha) 1 strip Q6HR 01/26/25 18:00 01/28/25 18:05 1 STRIP Insulin Human Regular FOLLOW SLIDING SCALE Q6HR SC 01/26/25 18:00 01/28/25 13:43 2 UNITS Dextrose 50 ml UD IV 01/26/25 15:30 Pantoprazole Sodium 40 mg DAILY IV 01/27/25 10:00 01/28/25 11:00 40 MG Fat Emulsion Intravenous 100 ml/Sodium Chloride 20 meq/ Sodium Phosphate 40 meq/Potassium Acetate 20 meq/ Potassium Phosphate 22 meq/ Magnesium Sulfate 12 meq/ Multivitamins 10 ml/Chromium/ Copper/Manganese/ Zinc 1 ml/Amino Acids/Dextrose/ Purified Water 1,844 ml @ 77 mls/hr [id number] IV 01/27/25 22:00 01/28/25 21:59 01/27/25 22:40 77 MLS/HR Dexamethasone Sodium Phosphate 10 mg/Dextrose 51 ml @ 204 mls/hr Q6HR IV 01/28/25 00:00 01/28/25 18:01 204 MLS/HR Melatonin 5 mg HS PRN PO 01/28/25 00:30 Fat Emulsion Intravenous 150 ml/Sodium Chloride 40 meq/ Sodium Acetate 40 meq/Potassium Acetate 20 meq/ Magnesium Sulfate 12 meq/ Multivitamins 10 ml/Chromium/ Copper/Manganese/ Zinc 1 ml/Amino Acids/Dextrose/ Purified Water 2,204 ml @ 91 mls/hr [id number] IV 01/28/25 22:00 01/29/25 21:59 Sodium Chloride 1,000 ml @ 40 mls/hr Q24H IV 01/28/25 22:00 Lorazepam 1 mg ONCE PRN IV 01/28/25 15:30 laboratory and microbiology Laboratory Tests 01/28/25 05:30 Test 01/28/25 05:30 Range/Units Serum Glucose 132 H 74-106 mg/dL Problem List/Assessment/Plan Problem List/Assessment/Plan Elia Li is a 59-year-old male patient who presents to the ER brought by EMS due to breakthrough seizures which lasted approximally 10 minutes. Obtained history of present illness and past medical history from son since patient was postictal. Per son patient was found on the ground with very intense and long- lasting seizures, more than usual, prompting his visit to the ER. Patient does complain of fevers for the past two years. Denies neck stiffness, photophobia, palpitation, syncope, chest pain, dyspnea, abdominal pain, nausea, vomiting, diarrhea, genital or oral ulcers, recent travel, sick contacts and other new motor or sensory deficits. 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 Surgical history: Denies Family history: Noncontributory Social history: Lives in [place] with son (he is the caregiver), normally he mobilizes with walker. Denies current tobacco, alcohol and other drug abuse (per son he used to smoke and quit 25 years ago, does not know pack-year history). Allergies: Valium Home medication: Aspirin 81 mg p.o. daily, atorvastatin 40 mg p.o. daily, levetiracetam a 1000 mg p.o. b.i.d., amlodipine 10 mg daily, Vimpat 50 mg daily. Patient seen and examined at bedside. Denies any meningeal symptoms, is alert and oriented in two spheres (not on time) this is his normal baseline, he communicates nodding and shaking head, he whispers all his answers. Has not presented seizure activity for the past 24 hours. Physical Exam Patient lying in bed, in no acute distress General: Lucid, afebrile, mucosae are moist. Tongue is swollen and has hematoma (from biting tongue) Cardiovascular: Normal S1 and S2. No murmurs, gallops or rubs Respiratory: Normal ventilation mechanics. Clear lung sounds on auscultation Abdomen: Soft, nontender, no organomegaly, normal bowel sounds MSK/skin: Mobilizes 4 limbs. Skin is dry and warm Neurological: Oriented in 3 spheres. Right-sided hemiplegia, no other motor no sensitive deficits. Pupils are isocoric and reactive. Brudzinski and Kernig sign are negative, no neck stiffness Assessment Sepsis probably secondary to meningitis/encephalitis/brain abscess Questionable Meningitis Rule out encephalitis and brain abscess Breakthrough seizures History of epilepsy History of multiple CVAs - currently wheelchair-bound Plan/Recommendation Completed lumbar puncture on 01/28/2025, with analysis of CSF which showed mildly elevated white blood cells after treatment with IV antibiotics for at least 48 hours, could be resolving meningitis. Pending wrist of CSF analysis (HSV one and two, was Nile (not available in hospital), cytology, chemistry and culture). No IV steroids needed at this time since it has been more than 24 hours since administration of IV antibiotics. Have discussed with primary team to discontinue dexamethasone. Ordered head MRI with and without contrast to rule out encephalitis versus brain abscess, pending Have ordered HIV, influenza and COVID. We will hold on acyclovir until obtaining results of lumbar puncture analysis Discontinue isolation since patient already completed 24 hours of IV antibiotics. Appreciate input of Neurology specialist. Rest of management per primary team. Discussed plan with Dr. Aleman, patient, family and nurses: Completed lumbar puncture with mildly increased white blood cells (could be reduced due to empiric IV treatment with antibiotics for the past 48 hours), pending pertinent CSF analysis, discontinued isolation for meningitis, ordered head MRI with and without IV contrast, no serous needed at this time, pending complementary workup. Recommend discontinuing IV steroids at this point, discussed with primary team. Plan discussed with: Patient, Other (Nurses) Dietary Evaluation Review Comments: 1) If NPO > 7 days, consider EN/TPN to meet at least 75% estimated daily needs 2) Initiate Pro-Stat @ 30 mL qd 3) Initiate vitamin C @ 500 mg bid and zinc sulfate @ 220 mg qd for 7-10 days 4) Advance to 2g Na diet when medically feasible, pending RN UTILIZATION MANAG[employer] [facility] approval 5) Follow-up with neurology Expected Outcomes/Goals: 1) patient to receive nutritional support within 7 days 2) labs and wound to improve 3) diet to advance 4) f/u in 2-3 days MEHRDAD URIBE Jan 28, 2025 19:21 MASON ALEMAN MD Feb 08, 2025 19:59
[2025-01-28] MEDS ORDERED: PPN PER PHARMACY IV NR (22:00)
[2025-01-28] MEDS ORDERED: SODIUM CHLORIDE 0.9% 1,000 ML IV SCH (22:00)
[2025-01-28] MEDS: PPN PER PHARMACY IV NR (22:08)
[2025-01-29] VITALS (8 sets, daily range): BP systolic 117–134; BP diastolic 67–78; PULSE 52–75; RESP 16–18; TEMP 97.4–97.6; O2SAT 98–100
[2025-01-29 07:38] LABS: Basophils # (auto) 0 10 ^3/uL (0-0.2); Basophils % (auto) 0.1 % (0.0-2.0); Eosinophils # (auto) 0 10 ^3/uL (0-0.8); Hematocrit 39.6 % (41.0-53.0); Lymphocytes # (auto) 0.5 10 ^3/uL (0.4-5.4); Lymphocytes % (auto) 3.6 % (10.0-50.0); Mean Corpuscular Hemoglobin 32.3 pg (28.0-32.0); Mean Corpuscular Hgb Conc. 35.4 g/dL (32.0-36.0); Mean Corpuscular Volume 91.4 fL (80.0-100.0); Monocytes # (auto) 0.4 10 ^3/uL (0-1.3); Monocytes % (auto) 2.7 % (0.0-12.0); Neutrophils # (auto) 13.3 10 ^3/uL (1.6-8.6); Neutrophils % (auto) 93.6 % (37.0-80.0); Platelet Count (auto) 257 10^3/uL (140-450); Red Blood Cells 4.33 10^6/uL (4.5-5.90); Red Cell Distribution Width 13.9 % (11.8-14.3); White Blood Cell 14.2 10^3/uL (4.4-10.8)
[2025-01-29 07:45] LABS: Anion Gap 8 (5-15); Calcium 8.8 mg/dL (8.7-10.4); Carbon Dioxide 28 mmol/L (20-31); Chloride 100 mmol/L (98-107); Potassium 3.9 mmol/L (3.5-5.1); Sodium 136 mmol/L (136-145)
[2025-01-29 07:51] LABS: Albumin 4.5 g/dL (3.2-4.8); BUN/Creatinine Ratio 19.4 (10.0-20.0); Blood Urea Nitrogen 14 mg/dL (9-23); GFR African American 145 mL/min; GFR Non-African American 120 mL/min
[2025-01-29 07:52] LABS: Magnesium 2.4 mg/dL (1.6-2.6)
[2025-01-29 07:53] LABS: Glucose 140 mg/dL (74-106)
--- NOTE | 2025-01-29 09:00 | DVHPN2 ---
Progress Note - Dictate Date Seen: Jan 29, 2025 Medical Necessity Reason Pt with a Central, PICC or Fol: No Subjective Mr. Li is a 59 years old right-handed gentleman with a history of hypertension, stroke with residual right-sided weakness, seizure disorder, he came to the [facility] on 01/23/2025 with a chief complaint of seizure activity. I have seen and examined the patient, I have talked to his sitter, nurse, he is fine, no headache, he was oriented to person, place, he knows year No seizure today CSF profile, 01/28/2025: WBC: 5, [place]: 51% Poly: 49, Protein: 55, glucose: 93 Urinalysis, 01/23/2025: WBC: 1, urine leukocyte esterase: Likely UDS, : Benzo Plasma alcohol, 01/23/2025: 4.8 WBC/HB/PLT/MCV, 01/24/2025: 12.7/15.3/223/91.1, 01/25/2025: 8.2/14.5/198/91.1 BMP 01/24/2025: Unremarkable Lactic acid, 01/23/2025: 3.7, 1.3 HGB A1c, 01/24/2025: 5 TBI/AST/ALT/AP, 01/23/2025: Normal, 01/24/2025: 1.7/38/29/109 TSH, 01/23/2025: 1.07 CT head 01/23/2025: 1. No acute intracranial hemorrhage 2. No CT findings of territorial ischemia MRI headache, 01/29/2025: 1. No acute intracranial process identified. 2. Moderate-sized old right cerebellar hemorrhagic infarct. vital signs Vital Sign Date Time Temp Pulse Resp B/P (MAP) Pulse Ox O2 Delivery O2 Flow Rate FiO2 01/29/25 05:00 97.6 62 16 134/75 (94) 100 97.6 01/28/25 20:00 Nasal Cannula* 2 28 Total Intake and Output 01/28/25 01/28/25 01/29/25 15:00 23:00 07:00 Intake Total 350 ml 201 ml Output Total 500 ml 1125 ml Balance -150 ml -924 ml medications Current Medications Medications Dose Ordered Sig/Clara Route Start Time Stop Time Status Last Admin Dose Admin Aspirin 81 mg DAILY PO 01/24/25 10:00 01/28/25 11:02 81 MG Atorvastatin Calcium 40 mg HS PO 01/23/25 22:00 Hydralazine HCl 10 mg Q6HP PRN IV 01/23/25 21:45 01/27/25 17:44 10 MG Acetaminophen/ Hydrocodone Bitart 1 tab Q4HP PRN PO 01/23/25 21:45 Ondansetron HCl 4 mg Q4HP PRN IV 01/23/25 21:45 Docusate Sodium 100 mg BIDPRN PRN PO 01/23/25 21:45 Acetaminophen 650 mg Q6HP PRN PO 01/23/25 21:45 Amlodipine Besylate 5 mg DAILY PO 01/24/25 10:00 01/28/25 11:01 5 MG Lorazepam 1 mg Q5MINP PRN IV 01/24/25 09:15 01/27/25 17:23 1 MG Vancomycin HCl 0 ml @ 0 mls/hr UD IV 01/24/25 12:00 Ceftriaxone Sodium/Dextrose 50 ml @ 50 mls/hr Q12HR@09,21 IV 01/24/25 21:00 01/28/25 20:20 50 MLS/HR Vancomycin HCl 150 ml @ 150 mls/hr Q8H IV 01/24/25 22:00 01/29/25 06:01 150 MLS/HR Enoxaparin Sodium 40 mg DAILY SC 01/25/25 10:00 01/28/25 11:00 40 MG Levetiracetam 100 ml @ 400 mls/hr Q12H IV 01/26/25 15:30 01/29/25 03:24 400 MLS/HR Amino Acids 0 ml @ 0 mls/hr PER PHARMACY IV 01/26/25 15:30 Diagnostic Test (Pha) 1 strip Q6HR 01/26/25 18:00 01/29/25 05:35 1 STRIP Insulin Human Regular FOLLOW SLIDING SCALE Q6HR SC 01/26/25 18:00 01/29/25 06:01 2 UNITS Dextrose 50 ml UD IV 01/26/25 15:30 Pantoprazole Sodium 40 mg DAILY IV 01/27/25 10:00 01/28/25 11:00 40 MG Dexamethasone Sodium Phosphate 10 mg/Dextrose 51 ml @ 204 mls/hr Q6HR IV 01/28/25 00:00 01/29/25 05:20 204 MLS/HR Melatonin 5 mg HS PRN PO 01/28/25 00:30 Fat Emulsion Intravenous 150 ml/Sodium Chloride 40 meq/ Sodium Acetate 40 meq/Potassium Acetate 20 meq/ Magnesium Sulfate 12 meq/ Multivitamins 10 ml/Chromium/ Copper/Manganese/ Zinc 1 ml/Amino Acids/Dextrose/ Purified Water 2,204 ml @ 91 mls/hr [id number] IV 01/28/25 22:00 01/28/25 22:00 Cancel Lorazepam 1 mg ONCE PRN IV 01/28/25 15:30 Fat Emulsion Intravenous 150 ml/Sodium Chloride 40 meq/ Sodium Acetate 40 meq/Potassium Acetate 20 meq/ Magnesium Sulfate 12 meq/ Multivitamins 10 ml/Chromium/ Copper/Manganese/ Zinc 1 ml/Amino Acids/Dextrose/ Purified Water 2,204 ml @ 91 mls/hr [id number] IV 01/28/25 22:00 01/29/25 21:59 01/28/25 22:08 91 MLS/HR objective General: the patient is well developed and nourished. No acute distress. MENTAL STATUS: Subjective SPEECH, LANGUAGE, HIGHER CORTICAL FUNCTION: No aphasia or dysarthria CRANIAL NERVES: Pupils are equal, round and reactive. EOMs full and conjugate. Facial sensation intact in all three divisions bilaterally. Mandibular strength intact. Mild Right facial weakness with some lower motor neuron features SENSATION: Sensation to touch and pinprick is ok MOTOR: Normal tone in the upper and lower extremity. Normal muscle bulk. No fasciculations. No abnormal movements or posturing. Muscle strength of the major groups in the left extremity is more than 4/5. Muscle strength of he major groups in the right extremities is: Upper extremity:4/5, lower extremity: 3/5. REFLEXES: Deep tendon reflexes are symmetrical. No pathological reflexes. CEREBELLAR/COORDINATION: Deferred GAIT/STATION: deferred. laboratory and microbiology Laboratory Tests 01/29/25 06:31 Test 01/29/25 06:31 Range/Units Serum Glucose 140 H 74-106 mg/dL Problem List Status epileptics Grand mal seizure Right hemiplegia ? Hammad's paralysis ? New stroke Chronic stroke Altered mental status Postictal confusion Metabolic encephalopathy Fever ? Partial treated meningitis Assessment/Plan Monitoring Supportive treatment Aerosol isolation Telemetry CSF profile EEG Keppra 1500 mg b.i.d. Ativan for seizure breakthrough Aspirin 81 mg daily Lipitor 40 mg daily Up to chair Physical therapy ID consultation Re: meningitis This medical document was created using an electronic medical record system with [employer] dictation system. Although this document has been carefully reviewed, there may still be some phonetic and typographical errors. These areas are purely typographical due to imperfections of the software programs, and do not reflect any compromise in the patient's medical care. Prognosis poor Dietary Evaluation Review Comments: 1) If NPO > 7 days, consider EN/TPN to meet at least 75% estimated daily needs 2) Initiate Pro-Stat @ 30 mL qd 3) Initiate vitamin C @ 500 mg bid and zinc sulfate @ 220 mg qd for 7-10 days 4) Advance to 2g Na diet when medically feasible, pending POLICE INSPECTOR approval 5) Follow-up with neurology Expected Outcomes/Goals: 1) patient to receive nutritional support within 7 days 2) labs and wound to improve 3) diet to advance 4) f/u in 2-3 days Plan discussed with: Other KARLENE JUAREZ MD Jan 29, 2025 09:00
[2025-01-29 12:44] LABS: THC Blood Negative
[2025-01-29 12:45] LABS: Phencyclidine Blood Negative
[2025-01-29 12:46] LABS: Cocaine Blood Negative
--- NOTE | 2025-01-29 16:47 | DVH ---
EXAM: MRI BRAIN HEAD WO CONTRAST HISTORY: Stroke COMPARISON: None TECHNIQUE: MRI was performed utilizing multiple appropriate imaging planes and pulse sequences. FINDINGS: SUPRATENTORIAL REGION: No evidence for acute ischemia or intracranial hemorrhage. Few subcentimeter foci of hemosiderin deposit noted bilaterally reflecting sequela of microhemorrhages. POSTERIOR FOSSA: No acute abnormality. Moderate encephalomalacia in the right cerebellar lobe large amount hemosiderin deposit reflecting an old hemorrhagic infarcts.. BRAINSTEM: Unremarkable. SELLAR/SUPRASELLAR REGION: Unremarkable. VENTRICLES, CISTERNS, SULCI: Moderately dilated 4th ventricle likely ex vacuo dilatation related to right cerebellar encephalomalacia. ORBITS: Unremarkable. PARANASAL SINUSES: Unremarkable. MASTOID AIR CELLS: Unremarkable. VASCULATURE: Unremarkable. BONES/ SOFT TISSUES: Unremarkable. OTHER: None. IMPRESSION: 1. No acute intracranial process identified. 2. Moderate-sized old right cerebellar hemorrhagic infarct.
--- NOTE | 2025-01-29 17:14 | DVHPNRES ---
Progress Note Date Seen: Jan 29, 2025 Resident Creating Document: NASIMA SHAFER RESIDENT Medical Necessity Reason Pt with a Central, PICC or Fol: No Subjective Review of Systems Patient was seen and examined on the bedside. He is alert oriented x2. Patient didn't have any more seizures since 48 hours. The patient passed bedside swallow evaluation and started clear liquid diet today. Objective vital signs Vital Sign Date Time Temp Pulse Resp B/P (MAP) Pulse Ox O2 Delivery O2 Flow Rate FiO2 01/29/25 13:00 62 16 119/69 (86) 100 01/29/25 08:05 Nasal Cannula* 12 2701/29/25 05:00 97.6 97.6 Total Intake and Output 01/28/25 01/28/25 01/29/25 15:00 23:00 07:00 Intake Total 350 ml 201 ml Output Total 500 ml 1125 ml Balance -150 ml -924 ml medications Current Medications Medications Dose Ordered Sig/Clara Route Start Time Stop Time Status Last Admin Dose Admin Aspirin 81 mg DAILY PO 01/24/25 10:00 01/29/25 09:45 81 MG Atorvastatin Calcium 40 mg HS PO 01/23/25 22:00 Hydralazine HCl 10 mg Q6HP PRN IV 01/23/25 21:45 01/27/25 17:44 10 MG Acetaminophen/ Hydrocodone Bitart 1 tab Q4HP PRN PO 01/23/25 21:45 Ondansetron HCl 4 mg Q4HP PRN IV 01/23/25 21:45 Docusate Sodium 100 mg BIDPRN PRN PO 01/23/25 21:45 Acetaminophen 650 mg Q6HP PRN PO 01/23/25 21:45 Amlodipine Besylate 5 mg DAILY PO 01/24/25 10:00 01/29/25 09:46 5 MG Lorazepam 1 mg Q5MINP PRN IV 01/24/25 09:15 01/27/25 17:23 1 MG Vancomycin HCl 0 ml @ 0 mls/hr UD IV 01/24/25 12:00 Ceftriaxone Sodium/Dextrose 50 ml @ 50 mls/hr Q12HR@,21 IV 01/24/25 21:00 01/29/25 09:44 50 MLS/HR Vancomycin HCl 150 ml @ 150 mls/hr Q8H IV 01/24/25 22:00 01/29/25 14:02 150 MLS/HR Enoxaparin Sodium 40 mg DAILY SC 01/25/25 10:00 01/29/25 09:45 40 MG Levetiracetam 100 ml @ 400 mls/hr Q12H IV 01/26/25 15:30 01/29/25 16:15 400 MLS/HR Diagnostic Test (Pha) 1 strip Q6HR 01/26/25 18:00 01/29/25 12:08 1 STRIP Insulin Human Regular FOLLOW SLIDING SCALE Q6HR SC 01/26/25 18:00 01/29/25 06:01 2 UNITS Dextrose 50 ml UD IV 01/26/25 15:30 Pantoprazole Sodium 40 mg DAILY IV 01/27/25 10:00 01/29/25 09:44 40 MG Dexamethasone Sodium Phosphate 10 mg/Dextrose 51 ml @ 204 mls/hr Q6HR IV 01/28/25 00:00 01/29/25 12:03 204 MLS/HR Melatonin 5 mg HS PRN PO 01/28/25 00:30 Fat Emulsion Intravenous 150 ml/Sodium Chloride 40 meq/ Sodium Acetate 40 meq/Potassium Acetate 20 meq/ Magnesium Sulfate 12 meq/ Multivitamins 10 ml/Chromium/ Copper/Manganese/ Zinc 1 ml/Amino Acids/Dextrose/ Purified Water 2,204 ml @ 91 mls/hr [id number] IV 01/28/25 22:00 01/28/25 22:00 Cancel Lorazepam 1 mg ONCE PRN IV 01/28/25 15:30 Examination Physical examination: General Appearance: Alert, Oriented X2, Cooperative, No acute distress HEENT: Atraumatic, PERRLA, EOMI, Mucous membrane moist/pink Respiratory: Clear to auscultation, Normal air movement Cardiovascular: Regular rate, Normal S1, Normal S2, No murmurs, no chest wall tenderness Abdominal: Normal bowel sounds, Soft, No tenderness, No hepatospenomegaly, No masses Extremities: No clubbing, No cyanosis, No edema, Normal pulses, No tenderness/swelling Skin: No rashes, No breakdown, No significant lesion Neuro: Rt sided weakness, Strength at 5/5 X2 ext, Normal tone, Sensation intact, Cranial nerves 3-12 NL, Reflexes 2+ Psych/Mental Status: Mental status NL, Mood NL laboratory and microbiology Laboratory Tests 01/29/25 06:31 Test 01/29/25 06:31 Range/Units Serum Glucose 140 H 74-106 mg/dL Microbiology Date/Time Source Procedure Growth Status 01/28/25 14:10 Cerebral Spinal Fluid Gram Stain - Final Resulted 01/28/25 14:10 Cerebral Spinal Fluid CSF Culture & Gram Stain (Tube 2) M - Preliminary Resulted 01/23/25 16:40 Blood Blood Culture - Final NO GROWTH AFTER 5 DAYS OF INCUBATION. Complete Labs and/or images reviewed: Labs reviewed by me, Image(s) reviewed by me Problem List/Assessment/Plan Problem List/Assessment/Plan Assessment and plan: # Sepsis likely due to meningitis # Acute metabolic encephalopathy likely due to seizure # Possible postictal confusion # Break through Seizure # History of epilepsy - CT head without contrast revealed no acute intracranial abnormality. - Blood culture report revealed no growth in 24 hours of incubation - Neurology on board - Pending MRI of the brain without contrast, EEG - Patient underwent LP yesterday - CSF study revealed low WBC, high protein, glucose and pending viral panel study - Empirical antibiotic for possible meningitis - IV ceftriaxone 2 g b.i.d., IV vancomycin as per pharmacy.( started on 01/24/25) - IV dexamethasone 10 mg q.6 hours( started on 01/27/25) - Appreciate neurology consultation - CPK was mildly elevated because of seizure. - IV Ativan 1 mg q5min p.r.n. for seizure - UDS was positive for benzodiazepine and ordered Keppra level - IV Keppra 1500 mg b.i.d. - Seizure precaution. - Patient passed bedside swallow evaluation and started clear liquid diet today # Vitamin D deficiency - Vitamin D 78684 units Q 7D # PUD prophylaxis - IV protonix 40 mg daily # DVT prophylaxis - Lovenox 40 mg sc daily Goal of care could not be discussed with the patient s patient is A&OX2 Plan discussed with Dr. Gamboa Plan discussed with: Patient, Other My Orders My Orders Orders - NASIMA SHAFER RESIDENT Procedure Category Date Status Time Vancomycin,Trough LAB 01/30/25 Verified 05:00 Vancomycin Per KENAN 01/30/25 In Process Pharmacy Protoc 06:00 Clear Liq Diet DIET 01/29/25 Transmitted Dinner Creatinine LAB 01/30/25 Verified 05:00 Dietary Evaluation Review Comments: 1) If NPO > 7 days, consider EN/TPN to meet at least 75% estimated daily needs 2) Initiate Pro-Stat @ 30 mL qd 3) Initiate vitamin C @ 500 mg bid and zinc sulfate @ 220 mg qd for 7-10 days 4) Advance to 2g Na diet when medically feasible, pending FPGA ENGINEER approval 5) Follow-up with neurology Expected Outcomes/Goals: 1) patient to receive nutritional support within 7 days 2) labs and wound to improve 3) diet to advance 4) f/u in 2-3 days Date of Service: Jan 29, 2025 Billing Provider: BUSTER OHARA MD Common Visit Codes: [id number] INP/OBS CARE(HIGH) NASIMA SHAFER RESIDENT Jan 29, 2025 17:14 BUSTER OHARA MD Jan 30, 2025 00:19
--- NOTE | 2025-01-29 20:40 | DVHPN2 ---
Consult Progress Note Date Seen: Jan 29, 2025 Objective vital signs Vital Sign Date Time Temp Pulse Resp B/P (MAP) Pulse Ox O2 Delivery O2 Flow Rate FiO2 01/29/25 19:36 97.4 62 16 117/68 (84) 99 97.4 01/29/25 08:05 Nasal Cannula* 2 28 Total Intake and Output 01/28/25 01/28/25 01/29/25 15:00 23:00 07:00 Intake Total 350 ml 201 ml Output Total 500 ml 1125 ml Balance -150 ml -924 ml medications Current Medications Medications Dose Ordered Sig/Clara Route Start Time Stop Time Status Last Admin Dose Admin Aspirin 81 mg DAILY PO 01/24/25 10:00 01/29/25 09:45 81 MG Atorvastatin Calcium 40 mg HS PO 01/23/25 22:00 Hydralazine HCl 10 mg Q6HP PRN IV 01/23/25 21:45 01/27/25 17:44 10 MG Acetaminophen/ Hydrocodone Bitart 1 tab Q4HP PRN PO 01/23/25 21:45 Ondansetron HCl 4 mg Q4HP PRN IV 01/23/25 21:45 Docusate Sodium 100 mg BIDPRN PRN PO 01/23/25 21:45 Acetaminophen 650 mg Q6HP PRN PO 01/23/25 21:45 Amlodipine Besylate 5 mg DAILY PO 01/24/25 10:00 01/29/25 09:46 5 MG Lorazepam 1 mg Q5MINP PRN IV 01/24/25 09:15 01/27/25 17:23 1 MG Vancomycin HCl 0 ml @ 0 mls/hr UD IV 01/24/25 12:00 Ceftriaxone Sodium/Dextrose 50 ml @ 50 mls/hr Q12HR@ IV 01/24/25 21:00 01/29/25 09:44 50 MLS/HR Vancomycin HCl 150 ml @ 150 mls/hr Q8H IV 01/24/25 22:00 01/29/25 14:02 150 MLS/HR Enoxaparin Sodium 40 mg DAILY SC 01/25/25 10:00 01/29/25 09:45 40 MG Levetiracetam 100 ml @ 400 mls/hr Q12H IV 01/26/25 15:30 01/29/25 16:15 400 MLS/HR Diagnostic Test (Pha) 1 strip Q6HR 01/26/25 18:00 01/29/25 17:37 1 STRIP Insulin Human Regular FOLLOW SLIDING SCALE Q6HR SC 01/26/25 18:00 01/29/25 06:01 2 UNITS Dextrose 50 ml UD IV 01/26/25 15:30 Pantoprazole Sodium 40 mg DAILY IV 01/27/25 10:00 01/29/25 09:44 40 MG Dexamethasone Sodium Phosphate 10 mg/Dextrose 51 ml @ 204 mls/hr Q6HR IV 01/28/25 00:00 01/29/25 17:29 204 MLS/HR Melatonin 5 mg HS PRN PO 01/28/25 00:30 Fat Emulsion Intravenous 150 ml/Sodium Chloride 40 meq/ Sodium Acetate 40 meq/Potassium Acetate 20 meq/ Magnesium Sulfate 12 meq/ Multivitamins 10 ml/Chromium/ Copper/Manganese/ Zinc 1 ml/Amino Acids/Dextrose/ Purified Water 2,204 ml @ 91 mls/hr [id number] IV 01/28/25 22:00 01/28/25 22:00 Cancel Lorazepam 1 mg ONCE PRN IV 01/28/25 15:30 laboratory and microbiology Laboratory Tests 01/29/25 06:31 Test 01/29/25 06:31 Range/Units Serum Glucose 140 H 74-106 mg/dL Problem List/Assessment/Plan Problems(with codes): (1) Sepsis (2) Breakthrough seizure (3) Generalized weakness (4) Sepsis, unspecified organism Problem List/Assessment/Plan Elia Li is a 59-year-old male patient who presents to the ER brought by EMS due to breakthrough seizures which lasted approximally 10 minutes. Obtained history of present illness and past medical history from son since patient was postictal. Per son patient was found on the ground with very intense and long- lasting seizures, more than usual, prompting his visit to the ER. Patient does complain of fevers for the past two years. Denies neck stiffness, photophobia, palpitation, syncope, chest pain, dyspnea, abdominal pain, nausea, vomiting, diarrhea, genital or oral ulcers, recent travel, sick contacts and other new motor or sensory deficits. 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 Surgical history: Denies Family history: Noncontributory Social history: Lives in [place] with son (he is the caregiver), normally he mobilizes with walker. Denies current tobacco, alcohol and other drug abuse (per son he used to smoke and quit 25 years ago, does not know pack-year history). Allergies: Valium Home medication: Aspirin 81 mg p.o. daily, atorvastatin 40 mg p.o. daily, levetiracetam a 1000 mg p.o. b.i.d., amlodipine 10 mg daily, Vimpat 50 mg daily. Patient seen and examined at bedside. Denies any meningeal symptoms, is alert and oriented in two spheres (not on time) this is his normal baseline, he communicates nodding and shaking head, he whispers all his answers. Has not presented seizure activity for the past 48 hours. Physical Exam Patient lying in bed, in no acute distress General: Lucid, afebrile, mucosae are moist. Tongue is swollen and has hematoma (from biting tongue) Cardiovascular: Normal S1 and S2. No murmurs, gallops or rubs Respiratory: Normal ventilation mechanics. Clear lung sounds on auscultation Abdomen: Soft, nontender, no organomegaly, normal bowel sounds MSK/skin: Mobilizes 4 limbs. Skin is dry and warm Neurological: Oriented in 2 spheres. Right-sided hemiplegia, no other motor no sensitive deficits. Pupils are isocoric and reactive. Brudzinski and Kernig sign are negative, no neck stiffness Assessment Sepsis probably secondary to meningitis/encephalitis/brain abscess Questionable Meningitis Rule out encephalitis and brain abscess Breakthrough seizures History of epilepsy History of multiple CVAs - currently wheelchair-bound Leukocytosis secondary to steroids Plan/Recommendation Completed lumbar puncture on 01/28/2025, with analysis of CSF which showed mildly elevated white blood cells after treatment with IV antibiotics for at least 48 hours, could be resolving meningitis. Pending wrist of CSF analysis (HSV one and two, was Nile (not available in hospital), cytology, chemistry and culture). No IV steroids needed at this time since it has been more than 24 hours since administration of IV antibiotics. Have discussed with primary team to discontinue dexamethasone. 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 HIV and treponema negative We will hold on acyclovir until obtaining results of lumbar puncture analysis Discontinue isolation since patient already completed 24 hours of IV antibiotics. Appreciate input of Neurology specialist. Rest of management per primary team. Discussed plan with Dr. Aleman, patient, family and nurses: Completed lumbar puncture with mildly increased white blood cells (could be reduced due to empiric IV treatment with antibiotics for the past 48 hours), CSF analysis could be compatible with resolving meningitis, discontinued isolation for meningitis, MRI of head with and without contrast ruled out encephalitis/brain abscess, pending complementary workup. Recommend discontinuing IV steroids at this point, discussed with primary team. I was present with the resident during the history and exam. I discussed the case with the resident and agree with the findings and plan as documented in the resident's note. - Mason Aleman Plan discussed with: Patient, Other (Nurses) Dietary Evaluation Review Comments: 1) If NPO > 7 days, consider EN/TPN to meet at least 75% estimated daily needs 2) Initiate Pro-Stat @ 30 mL qd 3) Initiate vitamin C @ 500 mg bid and zinc sulfate @ 220 mg qd for 7-10 days 4) Advance to 2g Na diet when medically feasible, pending PRINCIPAL EXAMINER approval 5) Follow-up with neurology Expected Outcomes/Goals: 1) patient to receive nutritional support within 7 days 2) labs and wound to improve 3) diet to advance 4) f/u in 2-3 days MEHRDAD URIBE RESIDENT Jan 29, 2025 20:40 MASON ALEMAN MD Feb 08, 2025 20:01
[2025-01-29] MEDS ORDERED: [UNRECOGNIZED DRUG - OTHER] IV NR ×2 (22:00)
[2025-01-29] MEDS ORDERED: SODIUM CHLORIDE IV NR ×2 (22:00)
[2025-01-29] MEDS ORDERED: FAT EMULSION IV NR ×2 (22:00)
[2025-01-29] MEDS ORDERED: SODIUM PHOSPHATES IV NR ×2 (22:00)
[2025-01-30] VITALS (9 sets, daily range): BP systolic 112–134; BP diastolic 66–78; PULSE 53–71; RESP 16–18; TEMP 97.1–98.1; O2SAT 95–100
[2025-01-30 06:13] LABS: Basophils # (auto) 0 10 ^3/uL (0-0.2); Basophils % (auto) 0.1 % (0.0-2.0); Eosinophils # (auto) 0 10 ^3/uL (0-0.8); Hematocrit 40.7 % (41.0-53.0); Hemoglobin 14.2 g/dL (13.5-17.5); Lymphocytes # (auto) 0.6 10 ^3/uL (0.4-5.4); Lymphocytes % (auto) 4.7 % (10.0-50.0); Mean Corpuscular Hemoglobin 31.9 pg (28.0-32.0); Mean Corpuscular Hgb Conc. 34.8 g/dL (32.0-36.0); Mean Corpuscular Volume 91.8 fL (80.0-100.0); Monocytes # (auto) 0.3 10 ^3/uL (0-1.3); Neutrophils # (auto) 11.6 10 ^3/uL (1.6-8.6); Neutrophils % (auto) 93.2 % (37.0-80.0); Nucleated Red Blood Cells % 0.1 %; Platelet Count (auto) 234 10^3/uL (140-450); Red Blood Cells 4.44 10^6/uL (4.5-5.90); Red Cell Distribution Width 13.5 % (11.8-14.3); White Blood Cell 12.4 10^3/uL (4.4-10.8)
[2025-01-30 06:24] LABS: Anion Gap 8 (5-15); Carbon Dioxide 26 mmol/L (20-31); Chloride 106 mmol/L (98-107); Potassium 3.8 mmol/L (3.5-5.1); Sodium 140 mmol/L (136-145)
[2025-01-30 06:25] LABS: Calcium 9.3 mg/dL (8.7-10.4)
[2025-01-30 06:30] LABS: BUN/Creatinine Ratio 20.3 (10.0-20.0); Blood Urea Nitrogen 12 mg/dL (9-23); Glucose 102 mg/dL (74-106)
[2025-01-30 08:07] LABS: Serum Albumin 4.6 g/dL (3.8-4.9)
[2025-01-30 09:07] LABS: Immunoglobulin G, Serum 1282 mg/dL (603-1613)
--- NOTE | 2025-01-30 12:15 | DVHPN2 ---
Consult Progress Note Date Seen: Jan 30, 2025 Objective vital signs Vital Sign Date Time Temp Pulse Resp B/P (MAP) Pulse Ox O2 Delivery O2 Flow Rate FiO2 01/30/25 10:34 120/74 01/30/25 09:00 97.1 69 18 98 97.1 01/29/25 20:00 Nasal Cannula* 2 28 Total Intake and Output 01/29/25 01/29/25 01/30/25 15:00 23:00 07:00 Intake Total 200 ml 650 ml 2120 ml Output Total 550 ml 3325 ml Balance 200 ml 100 ml -1205 ml medications Current Medications Medications Dose Ordered Sig/Clara Route Start Time Stop Time Status Last Admin Dose Admin Aspirin 81 mg DAILY PO 01/24/25 10:00 01/30/25 10:34 81 MG Atorvastatin Calcium 40 mg HS PO 01/23/25 22:00 01/29/25 23:21 40 MG Hydralazine HCl 10 mg Q6HP PRN IV 01/23/25 21:45 01/27/25 17:44 10 MG Acetaminophen/ Hydrocodone Bitart 1 tab Q4HP PRN PO 01/23/25 21:45 Ondansetron HCl 4 mg Q4HP PRN IV 01/23/25 21:45 Docusate Sodium 100 mg BIDPRN PRN PO 01/23/25 21:45 Acetaminophen 650 mg Q6HP PRN PO 01/23/25 21:45 Amlodipine Besylate 5 mg DAILY PO 01/24/25 10:00 01/30/25 10:34 5 MG Lorazepam 1 mg Q5MINP PRN IV 01/24/25 09:15 01/27/25 17:23 1 MG Vancomycin HCl 0 ml @ 0 mls/hr UD IV 01/24/25 12:00 Ceftriaxone Sodium/Dextrose 50 ml @ 50 mls/hr Q12HR@09,21 IV 01/24/25 21:00 01/30/25 10:33 50 MLS/HR Enoxaparin Sodium 40 mg DAILY SC 01/25/25 10:00 01/30/25 10:33 40 MG Levetiracetam 100 ml @ 400 mls/hr Q12H IV 01/26/25 15:30 01/30/25 04:04 400 MLS/HR Diagnostic Test (Pha) 1 strip Q6HR 01/26/25 18:00 01/30/25 11:42 1 STRIP Insulin Human Regular FOLLOW SLIDING SCALE Q6HR SC 01/26/25 18:00 01/29/25 23:50 8 UNITS Dextrose 50 ml UD IV 01/26/25 15:30 Pantoprazole Sodium 40 mg DAILY IV 01/27/25 10:00 01/30/25 10:32 40 MG Dexamethasone Sodium Phosphate 10 mg/Dextrose 51 ml @ 204 mls/hr Q6HR IV 01/28/25 00:00 01/30/25 11:52 204 MLS/HR Melatonin 5 mg HS PRN PO 01/28/25 00:30 Fat Emulsion Intravenous 150 ml/Sodium Chloride 40 meq/ Sodium Acetate 40 meq/Potassium Acetate 20 meq/ Magnesium Sulfate 12 meq/ Multivitamins 10 ml/Chromium/ Copper/Manganese/ Zinc 1 ml/Amino Acids/Dextrose/ Purified Water 2,204 ml @ 91 mls/hr [id number] IV 01/28/25 22:00 01/28/25 22:00 Cancel Lorazepam 1 mg ONCE PRN IV 01/28/25 15:30 Vancomycin HCl 100 ml @ 100 mls/hr Q12H IV 01/30/25 21:00 laboratory and microbiology Laboratory Tests 01/30/25 04:26 Test 01/30/25 04:26 Range/Units Serum Glucose 102 74-106 mg/dL Problem List/Assessment/Plan Problem List/Assessment/Plan Elia Li is a 59-year-old male patient who presents to the ER brought by EMS due to breakthrough seizures which lasted approximally 10 minutes. Obtained history of present illness and past medical history from son since patient was postictal. Per son patient was found on the ground with very intense and long- lasting seizures, more than usual, prompting his visit to the ER. Patient does complain of fevers for the past two years. Denies neck stiffness, photophobia, palpitation, syncope, chest pain, dyspnea, abdominal pain, nausea, vomiting, diarrhea, genital or oral ulcers, recent travel, sick contacts and other new motor or sensory deficits. 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 Surgical history: Denies Family history: Noncontributory Social history: Lives in [place] with son (he is the caregiver), normally he mobilizes with walker. Denies current tobacco, alcohol and other drug abuse (per son he used to smoke and quit 25 years ago, does not know pack-year history). Allergies: Valium Home medication: Aspirin 81 mg p.o. daily, atorvastatin 40 mg p.o. daily, levetiracetam a 1000 mg p.o. b.i.d., amlodipine 10 mg daily, Vimpat 50 mg daily. Patient seen and examined at bedside. Denies any meningeal symptoms, is alert and oriented in two spheres (not on time) this is his normal baseline, he communicates nodding and shaking head, he whispers all his answers. Has not presented seizure activity for the past 72 hours. Physical Exam Patient lying in bed, in no acute distress General: Lucid, afebrile, mucosae are moist. Tongue is swollen and has hematoma (from biting tongue) Cardiovascular: Normal S1 and S2. No murmurs, gallops or rubs Respiratory: Normal ventilation mechanics. Clear lung sounds on auscultation Abdomen: Soft, nontender, no organomegaly, normal bowel sounds MSK/skin: Mobilizes 4 limbs. Skin is dry and warm Neurological: Oriented in 2 spheres. Right-sided hemiplegia, no other motor no sensitive deficits. Pupils are isocoric and reactive. Brudzinski and Kernig sign are negative, no neck stiffness Assessment Sepsis probably secondary to meningitis/encephalitis/brain abscess Questionable Meningitis Rule out encephalitis and brain abscess Breakthrough seizures History of epilepsy History of multiple CVAs - currently wheelchair-bound Leukocytosis secondary to steroids Plan/Recommendation Completed lumbar puncture on 01/28/2025, with analysis of CSF which showed mildly elevated white blood cells after treatment with IV antibiotics for at least 48 hours, could be resolving meningitis. Pending rest of CSF analysis (HSV one and two, was Nile (not available in hospital), cytology, chemistry and culture). No IV steroids needed at this time since it has been more than 24 hours since administration of IV antibiotics. Have discussed with primary team to discontinue dexamethasone. 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 HIV and treponema negative We will hold on acyclovir until obtaining results of lumbar puncture analysis Appreciate input of Neurology specialist. Rest of management per primary team. Discharge planning with p.o. antibiotics (linezolid 600 mg p.o. b.i.d. and ciprofloxacin 500 mg p.o. b.i.d.) to complete a course of 21 days per guideline recommendations, since patient is clinically stable, have decided to complete course with p.o. antibiotics once discharged. Discussed plan with Dr. Aleman, patient, family and nurses: CSF analysis could be compatible with resolving meningitis, discontinued isolation for meningitis, MRI of head with and without contrast ruled out encephalitis/brain abscess, pending complementary workup. Recommend discontinuing IV steroids at this point, discussed with primary team. Recommended by guidelines to complete 21 days of treatment for non identified organism, since patient is clinically asymptomatic at this point we will opt to continue with p.o. medication (linezolid 600 mg p.o. b.i.d. and ciprofloxacin 500 mg p.o. b.i.d.). Patient will have to follow up with Dr. Aleman as outpatient after two weeks from discharge. I was present with the resident during the history and exam. I discussed the case with the resident and agree with the findings and plan as documented in the resident's note. - Mason Aleman Plan discussed with: Patient, Other (Nurses) Dietary Evaluation Review Comments: 1) If NPO > 7 days, consider EN/TPN to meet at least 75% estimated daily needs 2) Initiate Pro-Stat @ 30 mL qd 3) Initiate vitamin C @ 500 mg bid and zinc sulfate @ 220 mg qd for 7-10 days 4) Advance to 2g Na diet when medically feasible, pending FOOD SERVICE LEAD approval 5) Follow-up with neurology Expected Outcomes/Goals: 1) patient to receive nutritional support within 7 days 2) labs and wound to improve 3) diet to advance 4) f/u in 2-3 days MEHRDAD URIBE Jan 30, 2025 12:15 MASON ALEMAN MD Feb 08, 2025 20:03
--- NOTE | 2025-01-30 17:37 | DVHPNRES ---
Progress Note Date Seen: Jan 30, 2025 Resident Creating Document: NASIMA SHAFER RESIDENT Medical Necessity Reason Pt with a Central, PICC or Fol: No Subjective Review of Systems The patient was seen and examined on the bedside. He is alert oriented x2 and nonverbal. No active complaint. No seizure episode in last 48 hours. Objective vital signs Vital Sign Date Time Temp Pulse Resp B/P (MAP) Pulse Ox O2 Delivery O2 Flow Rate FiO2 01/30/25 17:00 98.1 56 17 112/78 (89) 99 98.1 01/30/25 08:05 Nasal Cannula* 2 28 Total Intake and Output 01/29/25 01/29/25 01/30/25 15:00 23:00 07:00 Intake Total 200 ml 650 ml 2120 ml Output Total 550 ml 3325 ml Balance 200 ml 100 ml -1205 ml medications Current Medications Medications Dose Ordered Sig/Clara Route Start Time Stop Time Status Last Admin Dose Admin Aspirin 81 mg DAILY PO 01/24/25 10:00 01/30/25 10:34 81 MG Atorvastatin Calcium 40 mg HS PO 01/23/25 22:00 01/29/25 23:21 40 MG Hydralazine HCl 10 mg Q6HP PRN IV 01/23/25 21:45 01/27/25 17:44 10 MG Acetaminophen/ Hydrocodone Bitart 1 tab Q4HP PRN PO 01/23/25 21:45 Ondansetron HCl 4 mg Q4HP PRN IV 01/23/25 21:45 Docusate Sodium 100 mg BIDPRN PRN PO 01/23/25 21:45 Acetaminophen 650 mg Q6HP PRN PO 01/23/25 21:45 Amlodipine Besylate 5 mg DAILY PO 01/24/25 10:00 01/30/25 10:34 5 MG Lorazepam 1 mg Q5MINP PRN IV 01/24/25 09:15 01/27/25 17:23 1 MG Vancomycin HCl 0 ml @ 0 mls/hr UD IV 01/24/25 12:00 Ceftriaxone Sodium/Dextrose 50 ml @ 50 mls/hr Q12HR@, IV 01/24/25 21:00 01/30/25 10:33 50 MLS/HR Enoxaparin Sodium 40 mg DAILY SC 01/25/25 10:00 01/30/25 10:33 40 MG Levetiracetam 100 ml @ 400 mls/hr Q12H IV 01/26/25 15:30 01/30/25 15:32 400 MLS/HR Diagnostic Test (Pha) 1 strip Q6HR 01/26/25 18:00 01/30/25 17:30 1 STRIP Insulin Human Regular FOLLOW SLIDING SCALE Q6HR SC 01/26/25 18:00 01/29/25 23:50 8 UNITS Dextrose 50 ml UD IV 01/26/25 15:30 Pantoprazole Sodium 40 mg DAILY IV 01/27/25 10:00 01/30/25 10:32 40 MG Dexamethasone Sodium Phosphate 10 mg/Dextrose 51 ml @ 204 mls/hr Q6HR IV 01/28/25 00:00 01/30/25 11:52 204 MLS/HR Melatonin 5 mg HS PRN PO 01/28/25 00:30 Fat Emulsion Intravenous 150 ml/Sodium Chloride 40 meq/ Sodium Acetate 40 meq/Potassium Acetate 20 meq/ Magnesium Sulfate 12 meq/ Multivitamins 10 ml/Chromium/ Copper/Manganese/ Zinc 1 ml/Amino Acids/Dextrose/ Purified Water 2,204 ml @ 91 mls/hr [id number] IV 01/28/25 22:00 01/28/25 22:00 Cancel Lorazepam 1 mg ONCE PRN IV 01/28/25 15:30 Vancomycin HCl 100 ml @ 100 mls/hr Q12H IV 01/30/25 21:00 Examination Physical examination: General Appearance: Alert, Oriented X3, Cooperative, No acute distress HEENT: Atraumatic, PERRLA, EOMI, Mucous membrane moist/pink Respiratory: Clear to auscultation, Normal air movement Cardiovascular: Regular rate, Normal S1, Normal S2, No murmurs, no chest wall tenderness Abdominal: Normal bowel sounds, Soft, No tenderness, No hepatospenomegaly, No masses Extremities: No clubbing, No cyanosis, No edema, Normal pulses, No tenderness/swelling Skin: No rashes, No breakdown, No significant lesion Neuro: Rt sided hemiparesis, Strength at 5/5 X4 ext, Normal tone, Sensation intact, Cranial nerves 3-12 NL, Reflexes 2+ Psych/Mental Status: Mental status NL, Mood NL laboratory and microbiology Laboratory Tests 01/30/25 04:26 Test 01/30/25 04:26 Range/Units Serum Glucose 102 74-106 mg/dL Microbiology Date/Time Source Procedure Growth Status 01/28/25 14:10 Cerebral Spinal Fluid Gram Stain - Final Resulted 01/28/25 14:10 Cerebral Spinal Fluid CSF Culture & Gram Stain (Tube 2) M - Preliminary Resulted 01/23/25 16:40 Blood Blood Culture - Final NO GROWTH AFTER 5 DAYS OF INCUBATION. Complete Labs and/or images reviewed: Labs reviewed by me, Image(s) reviewed by me Problem List/Assessment/Plan Problem List/Assessment/Plan Assessment and plan: # Sepsis likely due to meningitis # Acute metabolic encephalopathy likely due to seizure # Possible postictal confusion # Break through Seizure # History of epilepsy - CT head without contrast revealed no acute intracranial abnormality. 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 - CSF study revealed low WBC, high protein, glucose and pending viral panel study - Empirical antibiotic for possible meningitis - IV ceftriaxone 2 g b.i.d., IV vancomycin as per pharmacy.( started on 01/24/25) - IV dexamethasone 10 mg q.6 hours( started on 01/27/25) - Appreciate neurology consultation - CPK was mildly elevated because of seizure. - IV Ativan 1 mg q5min p.r.n. for seizure - UDS was positive for benzodiazepine and ordered Keppra level - IV Keppra 1500 mg b.i.d. - Seizure precaution. - Patient passed bedside swallow evaluation and started clear liquid diet today - PT recommended SNF placement. # Vitamin D deficiency - Vitamin D 80160 units Q 7D # PUD prophylaxis - IV protonix 40 mg daily # DVT prophylaxis - Lovenox 40 mg sc daily Goal of care could not be discussed with the patient s patient is A&OX2 Plan discussed with Dr. Gamboa Plan discussed with: Patient, Other My Orders My Orders Orders - NASIMA SHAFER RESIDENT Procedure Category Date Status Time Vancomycin 750mg Kit PHA 01/30/25 In Process (Vancomycin Hcl) 21:00 Vancomycin Per KENAN 01/31/25 In Process Pharmacy Protoc 20:00 Vancomycin,Trough LAB 01/31/25 Verified 20:00 Basic Metabolic Panel LAB 01/31/25 Verified 04:00 * Swallow Request ST 01/30/25 Transmitted 10:57 Regular Diet DIET 01/30/25 Transmitted Dinner Dietary Evaluation Review Comments: 1) If NPO > 7 days, consider EN/TPN to meet at least 75% estimated daily needs 2) Initiate Pro-Stat @ 30 mL qd 3) Initiate vitamin C @ 500 mg bid and zinc sulfate @ 220 mg qd for 7-10 days 4) Advance to 2g Na diet when medically feasible, pending [employer] CONSULTANT approval 5) Follow-up with neurology Expected Outcomes/Goals: 1) patient to receive nutritional support within 7 days 2) labs and wound to improve 3) diet to advance 4) f/u in 2-3 days Date of Service: Jan 30, 2025 Billing Provider: BUSTER OHARA MD Common Visit Codes: [id number] INP/OBS CARE(HIGH) NASIMA SHAFER RESIDENT Jan 30, 2025 17:36 BUSTER OHARA MD Feb 02, 2025 22:27
[2025-01-30] MEDS: VANCOMYCIN 750MG KIT 100 ML IV SCH (22:35)
[2025-01-31 01:00] VITALS: BP 123/79; PULSE 57; RESP 17; TEMP 98.2; O2SAT 98
[2025-01-31 07:12] LABS: Chloride 100 mmol/L (98-107); Potassium 3.8 mmol/L (3.5-5.1)
[2025-01-31 07:13] LABS: Anion Gap 9 (5-15); Carbon Dioxide 27 mmol/L (20-31)
[2025-01-31 07:14] LABS: Calcium 9.5 mg/dL (8.7-10.4)
[2025-01-31 07:15] LABS: Sodium 136 mmol/L (136-145)
[2025-01-31 07:19] LABS: BUN/Creatinine Ratio 16.4 (10.0-20.0); Blood Urea Nitrogen 10 mg/dL (9-23)
[2025-01-31 07:20] LABS: Glucose 134 mg/dL (74-106)
[2025-01-31 08:00] VITALS: PULSE 47; PULSE 61; RESP 18; O2SAT 99
[2025-01-31 13:00] VITALS: BP 119/74; PULSE 76; RESP 16; TEMP 98.2; O2SAT 100
[2025-01-31 17:00] VITALS: BP 118/70; PULSE 66; RESP 16; TEMP 97.5; O2SAT 97
--- NOTE | 2025-01-31 17:20 | DVHDS2 ---
Discharge Summary Date of Admission Jan 23, 2025 at 23:08 Date of Discharge: Jan 31, 2025 Labs/Diagnostic Data: Laboratory Results Test 01/31/25 11:39 01/31/25 05:57 01/30/25 04:26 01/29/25 06:31 POC Glucose 143 mg/dl (70-106) Sodium Level 136 mmol/L (136-145) Potassium Level 3.8 mmol/L (3.5-5.1) Chloride Level 100 mmol/L (98-107) Carbon Dioxide Level 27 mmol/L (20-31) Anion Gap 9 (5-15) Blood Urea Nitrogen 10 mg/dL (9-23) Creatinine 0.61 mg/dL (0.700-1.30) Glomerular Filtration Rate Calc 112 mL/min (>90) BUN/Creatinine Ratio 16.4 (10.0-20.0) Serum Glucose 134 mg/dL (74-106) Calcium Level 9.5 mg/dL (8.7-10.4) White Blood Count 12.4 10^3/uL (4.4-10.8) Red Blood Count 4.44 10^6/uL (4.5-5.90) Hemoglobin 14.2 g/dL (13.5-17.5) Hematocrit 40.7 % (41.0-53.0) Mean Corpuscular Volume 91.8 fL (80.0-100.0) Mean Corpuscular Hemoglobin 31.9 pg (28.0-32.0) Mean Corpuscular Hemoglobin Concent 34.8 g/dL (32.0-36.0) Red Cell Distribution Width 13.5 % (11.8-14.3) Platelet Count 234 10^3/uL (140-450) Mean Platelet Volume 9.2 fL (6.9-10.8) Neutrophils (%) (Auto) 93.2 % (37.0-80.0) Lymphocytes (%) (Auto) 4.7 % (10.0-50.0) Monocytes (%) (Auto) 2.0 % (0.0-12.0) Eosinophils (%) (Auto) 0.0 % (0.0-7.0) Basophils (%) (Auto) 0.1 % (0.0-2.0) Neutrophils # (Auto) 11.6 10 ^3/uL (1.6-8.6) Lymphocytes # (Auto) 0.6 10 ^3/uL (0.4-5.4) Monocytes # (Auto) 0.3 10 ^3/uL (0-1.3) Eosinophils # (Auto) 0 10 ^3/uL (0-0.8) Basophils # (Auto) 0 10 ^3/uL (0-0.2) Nucleated Red Blood Cells 0.1 % Vancomycin Level Trough 22.5 ug/mL (5-10) Estimated GFR () 145 mL/min Estimated GFR (Non- 120 mL/min Phosphorus Level 3.0 mg/dL (2.4-5.1) Magnesium Level 2.4 mg/dL (1.6-2.6) Creatine Kinase 111 U/L (46-171) Albumin 4.5 g/dL (3.2-4.8) Test 01/28/25 20:14 01/28/25 14:10 01/28/25 08:41 01/28/25 05:30 Treponema pallidum Antibody Non-reactive (Negative) CSF Tube Number Tube 3 CSF Appearance Clear CSF WBC 5 CUMM (0-5) CSF RBC 8 CUMM (0-5) CSF Protein (Tube 2) 55.0 mg/dL (15-45) CSF Mononuclear Cells 51 % CSF Polymorphonuclear Cells 49 % CSF Glucose 93 mg/dL (40-70) Serum Immunoglobulin G 1282 mg/dL (603-1613) Serum Albumin (with CSF) 4.6 g/dL (3.8-4.9) Prothrombin Time 11.1 sec (9.3-11.8) Prothrombin Time INR 1.05 (0.9-1.15) Activated Partial Thromboplast Time 28.8 SEC (24.5-34.5) Total Bilirubin 0.7 mg/dL (0.2-1.0) Aspartate Amino Transferase (AST) 28 U/L (13-40) Alanine Aminotransferase (ALT) 22 U/L (7-40) Alkaline Phosphatase 100 U/L (46-116) Total Protein 7.8 g/dL (5.7-8.2) Test 01/27/25 05:53 01/24/25 10:05 01/24/25 04:53 01/23/25 21:44 Triglycerides Level 119 mg/dL (< 150) HIV (1&2) Antibody Negative (Negative) Levetiracetam Level 41.8 ug/mL (10.0-40.0) Hemoglobin A1c 5.0 % A1C (<5.7) Vitamin D 25-Hydroxy 13.9 ng/mL (30.0-100) Thyroid Stimulating Hormone (TSH) 1.07 uIU/mL (0.55-4.78) Hepatitis A Antibody Total Negative (Negative) Hepatitis B Surface Antigen Negative (Negative) Hepatitis B Surface Antibody Negative (Negative) Hepatitis B Core Total Antibody Negative (Negative) Hepatitis C Antibody Negative (Negative) Urine Color Colorless (Yellow) Urine Clarity Clear (Clear) Urine pH 7.5 (5.0-9.0) Urine Specific [place] 1.014 (1.001-1.035) Urine Protein Negative (Negative) Urine Ketones Negative (Negative) Urine Blood Negative /uL (Negative) Urine Nitrite Negative (Negative) Urine Bilirubin Negative (Negative) Urine Urobilinogen Normal mg/dL (Negative) Urine Leukocyte Esterase Negative /uL (Negative) Urine RBC 1 /hpf (0 - 3) Urine Microscopic WBC 1 /HPF (0-3) Urine Squamous Epithelial Cells Few /hpf (<5) Urine Bacteria Few /hpf (None Seen) Urine Hyaline Casts Few /lpf (0 - 2) Urine Mucus Few (None Seen) Urine Glucose Normal mg/dL (Normal) Urine Opiates Screen Neg (NEGATIVE) Urine Fentanyl Screen Neg (NEGATIVE) Urine Barbiturates Screen Neg (NEGATIVE) Urine Phencyclidine Screen Neg (NEGATIVE) Urine Amphetamines Screen Neg (NEGATIVE) Urine Benzodiazepines Screen Pos (NEGATIVE) Urine Cocaine Screen Neg (NEGATIVE) Urine Cannabinoids Screen Neg (NEGATIVE) Test 01/23/25 16:58 01/23/25 15:11 Lactic Acid Level 1.3 mmol/L (0.4-2.0) D-Dimer, Quantitative 0.49 mg/L FEU (0.0-0.49) Opiates Screen Negative Blood Oxycodone Screen Negative Blood Methadone Screen Phencyclidine (PCP) Level Negative Blood Amphetamines Screen Negative Cocaine Level Negative Marijuana (THC) Screen Negative Drugs of Abuse Source Whole blood Plasma/Serum Blood Alcohol 4.8 mg/dL (<10) Other Laboratory Tests 01/31/25 05:57 01/30/25 04:26 Brief Hx & Hospital Course: 59-year-old male with a known history of seizure disorder, history of multiple CVAs initially presented to the hospital with a breakthrough seizure. Patient was continued on Keppra and Ativan p.r.n.. Patient's LP was done after few days currently we are treating empirical meningitis although clinical suspicion is low. Patient did receive vancomycin Rocephin dexamethasone during the hospital stay which will be switched to Zyvox as well as ciprofloxacin as per Infectious Disease specialist. Patient is being discharged to assisted facility once bed is available. Final Diagnosis/Problems List Discharge Disposition: Half-Way Facility Discharge Instruct/Medications Diet: Cardiac 2g Na,low cholest Activity: No Restrictions, As Tolerated Follow Up/Referral: Follow up with the PCP in 1-2 weeks Follow up with Dr. Bart Toussaint in 1-2 weeks Medications: Zyvox and ciprofloxacin as prescribed, resume Keppra. Discharge Statement: "Patient was advised to return to the ER or call 911 if any headaches, dizziness, shortness of breath, chest pain, abdominal pain, bleeding, fevers, or worsening of medical condition. Patient was counseled about treatment plan, medications, possible side effects, patientverbalized understanding. All questions were answered to the best of my ability. This discharge took greater then 30 minutes in planning, reviewing documentation, counseling the patient, and discussing with other team members." ASSESSMENT ASSESSMENT Assessment Sepsis probably secondary to meningitis Questionable Meningitis Ruled out encephalitis and brain abscess Breakthrough seizures History of epilepsy History of multiple CVAs - currently wheelchair-bound Leukocytosis secondary to steroids DORI WRIGHT MD Jan 31, 2025 17:20
[2025-01-31 20:00] VITALS: PULSE 65; RESP 17; O2SAT 98
[2025-01-31 21:00] VITALS: BP 131/77; PULSE 65; RESP 17; TEMP 98; O2SAT 98
[2025-02-01] VITALS (8 sets, daily range): BP systolic 116–142; BP diastolic 19–82; PULSE 52–82; RESP 14–17; TEMP 97.7–98.2; O2SAT 94–99
[2025-02-01 05:53] LABS: Basophils # (auto) 0 10 ^3/uL (0-0.2); Basophils % (auto) 0.1 % (0.0-2.0); Eosinophils # (auto) 0 10 ^3/uL (0-0.8); Hematocrit 41.1 % (41.0-53.0); Lymphocytes # (auto) 0.5 10 ^3/uL (0.4-5.4); Mean Corpuscular Hemoglobin 31.3 pg (28.0-32.0); Mean Corpuscular Volume 91.9 fL (80.0-100.0); Monocytes # (auto) 0.5 10 ^3/uL (0-1.3); Monocytes % (auto) 3.9 % (0.0-12.0); Neutrophils # (auto) 10.7 10 ^3/uL (1.6-8.6); Platelet Count (auto) 248 10^3/uL (140-450); Red Blood Cells 4.47 10^6/uL (4.5-5.90); Red Cell Distribution Width 13.4 % (11.8-14.3); White Blood Cell 11.7 10^3/uL (4.4-10.8)
[2025-02-01] MEDS ORDERED: VANCOMYCIN 750mg/150ml 150 ML IV SCH (11:30)
[2025-02-01 12:07] LABS: CAP Mandated Reflex to Culture Not Indicated (.); Cryptococcus Antigen CSF Negative (Negative)
--- NOTE | 2025-02-01 15:08 | DVHPN2 ---
Subjective Patient denies any seizures, no seizures in last [address] Bart Toussaint patient was currently cleared to be discharged to [facility] facility but currently we are waiting for P authorization. Reviewed: Care Plan, H&P Changes from previous H/P or p: No Changes General: Per HPI Objective Vitals Vital Signs Date Time Temp Pulse Resp B/P (MAP) Pulse Ox O2 Delivery O2 Flow Rate FiO2 02/01/25 12:30 98.1 71 16 116/69 (85) 99 98.1 02/01/25 08:00 Room Air* 0 21 Intake/Output Intake and Output 02/01/25 07:00 Intake Total 1853 ml Output Total 2350 ml Balance -497 ml Intake Oral 1300 ml IV Total 553 ml Output Urine Total 2350 ml # Bowel Movements 1 Exam HEENT pupils are reactive Neck is supple CV is S1-S2 regular rate and rhythm Respiratory diminished breath sounds bases GI positive bowel sound 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 Medications Current Medications Medications Dose Ordered Sig/Clara Route Start Time Stop Time Status Last Admin Dose Admin Aspirin 81 mg DAILY PO 01/24/25 10:00 02/01/25 08:52 81 MG Atorvastatin Calcium 40 mg HS PO 01/23/25 22:00 01/31/25 22:35 40 MG Hydralazine HCl 10 mg Q6HP PRN IV 01/23/25 21:45 01/27/25 17:44 10 MG Acetaminophen/ Hydrocodone Bitart 1 tab Q4HP PRN PO 01/23/25 21:45 Ondansetron HCl 4 mg Q4HP PRN IV 01/23/25 21:45 Docusate Sodium 100 mg BIDPRN PRN PO 01/23/25 21:45 Acetaminophen 650 mg Q6HP PRN PO 01/23/25 21:45 Amlodipine Besylate 5 mg DAILY PO 01/24/25 10:00 02/01/25 08:52 5 MG Lorazepam 1 mg Q5MINP PRN IV 01/24/25 09:15 01/27/25 17:23 1 MG Vancomycin HCl 0 ml @ 0 mls/hr UD IV 01/24/25 12:00 Ceftriaxone Sodium/Dextrose 50 ml @ 50 mls/hr Q12HR@,21 IV 01/24/25 21:00 02/01/25 08:47 50 MLS/HR Enoxaparin Sodium 40 mg DAILY SC 01/25/25 10:00 02/01/25 08:51 40 MG Levetiracetam 100 ml @ 400 mls/hr Q12H IV 01/26/25 15:30 02/01/25 14:45 400 MLS/HR Diagnostic Test (Pha) 1 strip Q6HR 01/26/25 18:00 02/01/25 11:35 1 STRIP Insulin Human Regular FOLLOW SLIDING SCALE Q6HR SC 01/26/25 18:00 02/01/25 11:40 4 UNITS Dextrose 50 ml UD IV 01/26/25 15:30 Pantoprazole Sodium 40 mg DAILY IV 01/27/25 10:00 02/01/25 08:51 40 MG Dexamethasone Sodium Phosphate 10 mg/Dextrose 51 ml @ 204 mls/hr Q6HR IV 01/28/25 00:00 02/01/25 11:34 204 MLS/HR Melatonin 5 mg HS PRN PO 01/28/25 00:30 Fat Emulsion Intravenous 150 ml/Sodium Chloride 40 meq/ Sodium Acetate 40 meq/Potassium Acetate 20 meq/ Magnesium Sulfate 12 meq/ Multivitamins 10 ml/Chromium/ Copper/Manganese/ Zinc 1 ml/Amino Acids/Dextrose/ Purified Water 2,204 ml @ 91 mls/hr [id number] IV 01/28/25 22:00 01/28/25 22:00 Cancel Lorazepam 1 mg ONCE PRN IV 01/28/25 15:30 Vancomycin HCl 150 ml @ 150 mls/hr Q10H IV 02/01/25 19:00 Laboratory Results Laboratory Tests 01/31/25 05:57 02/01/25 04:26 Urinalysis Test 01/23/25 21:44 Urine Color Colorless (Yellow) Urine Clarity Clear (Clear) Urine pH 7.5 (5.0-9.0) Urine Specific [place] 1.014 (1.001-1.035) Urine Protein Negative (Negative) Urine Ketones Negative (Negative) Urine Blood Negative /uL (Negative) Urine Nitrite Negative (Negative) Urine Bilirubin Negative (Negative) Urine Urobilinogen Normal mg/dL (Negative) Urine Leukocyte Esterase Negative /uL (Negative) Urine RBC 1 /hpf (0 - 3) Urine Microscopic WBC 1 /HPF (0-3) Urine Squamous Epithelial Cells Few /hpf (<5) Urine Bacteria Few /hpf (None Seen) H Urine Hyaline Casts Few /lpf (0 - 2) Urine Mucus Few (None Seen) Urine Glucose Normal mg/dL (Normal) Microbiology Microbiology Date/Time Source Procedure Growth Status 01/28/25 14:10 Cerebral Spinal Fluid Gram Stain - Final Resulted 01/28/25 14:10 Cerebral Spinal Fluid CSF Culture & Gram Stain (Tube 2) M - Preliminary Resulted 01/23/25 16:40 Blood Blood Culture - Final NO GROWTH AFTER 5 DAYS OF INCUBATION. Complete Assessment/Plan Assessment/Plan 59-year-old male with a known history of epilepsy presented to the hospital with a seizures found to have 1. Breakthrough seizure 2. Epilepsy 3. Sepsis secondary to suspected meningitis 4. History of multiple CVAs 5. Leukocytosis secondary to steroids -continue current seizure medications, discharge plan to [facility], continue current IV antibiotics switched to p.o. antibiotics as ordered. Plan discussed with: Other My Orders Orders - DORI WRIGHT MD Procedure Category Date Status Time Discharge DISCHARGE 01/31/25 Transmitted 17:09 * [employer] Teacher CONS 01/31/25 Transmitted Consult Date of Service: Feb 01, 2025 Billing Provider: DORI WRIGHT MD Common Visit Codes: [id number] INP/OBS CARE(MOD) DORI WRIGHT MD Feb 01, 2025 15:08
--- NOTE | 2025-02-01 15:08 | DVHPN2 ---
Subjective Assuming the care of the patient from today onwards. Patient has no seizures for last [address] Bart Toussaint patient was currently cleared to be discharged to alf facility but currently we are waiting for P authorization. Reviewed: Care Plan, H&P Changes from previous H/P or p: No Changes General: Per HPI Objective Vitals Vital Signs Date Time Temp Pulse Resp B/P (MAP) Pulse Ox O2 Delivery O2 Flow Rate FiO2 02/01/25 12:30 98.1 71 16 116/69 (85) 99 98.1 02/01/25 08:00 Room Air* 0 21 Intake/Output Intake and Output 02/01/25 07:00 Intake Total 1853 ml Output Total 2350 ml Balance -497 ml Intake Oral 1300 ml IV Total 553 ml Output Urine Total 2350 ml # Bowel Movements 1 Exam HEENT pupils are reactive Neck is supple CV is S1-S2 regular rate and rhythm Respiratory diminished breath sounds bases GI positive bowel sound 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 Medications Current Medications Medications Dose Ordered Sig/Clara Route Start Time Stop Time Status Last Admin Dose Admin Aspirin 81 mg DAILY PO 01/24/25 10:00 02/01/25 08:52 81 MG Atorvastatin Calcium 40 mg HS PO 01/23/25 22:00 01/31/25 22:35 40 MG Hydralazine HCl 10 mg Q6HP PRN IV 01/23/25 21:45 01/27/25 17:44 10 MG Acetaminophen/ Hydrocodone Bitart 1 tab Q4HP PRN PO 01/23/25 21:45 Ondansetron HCl 4 mg Q4HP PRN IV 01/23/25 21:45 Docusate Sodium 100 mg BIDPRN PRN PO 01/23/25 21:45 Acetaminophen 650 mg Q6HP PRN PO 01/23/25 21:45 Amlodipine Besylate 5 mg DAILY PO 01/24/25 10:00 02/01/25 08:52 5 MG Lorazepam 1 mg Q5MINP PRN IV 01/24/25 09:15 01/27/25 17:23 1 MG Vancomycin HCl 0 ml @ 0 mls/hr UD IV 01/24/25 12:00 Ceftriaxone Sodium/Dextrose 50 ml @ 50 mls/hr Q12HR@,21 IV 01/24/25 21:00 02/01/25 08:47 50 MLS/HR Enoxaparin Sodium 40 mg DAILY SC 01/25/25 10:00 02/01/25 08:51 40 MG Levetiracetam 100 ml @ 400 mls/hr Q12H IV 01/26/25 15:30 02/01/25 14:45 400 MLS/HR Diagnostic Test (Pha) 1 strip Q6HR 01/26/25 18:00 02/01/25 11:35 1 STRIP Insulin Human Regular FOLLOW SLIDING SCALE Q6HR SC 01/26/25 18:00 02/01/25 11:40 4 UNITS Dextrose 50 ml UD IV 01/26/25 15:30 Pantoprazole Sodium 40 mg DAILY IV 01/27/25 10:00 02/01/25 08:51 40 MG Dexamethasone Sodium Phosphate 10 mg/Dextrose 51 ml @ 204 mls/hr Q6HR IV 01/28/25 00:00 02/01/25 11:34 204 MLS/HR Melatonin 5 mg HS PRN PO 01/28/25 00:30 Fat Emulsion Intravenous 150 ml/Sodium Chloride 40 meq/ Sodium Acetate 40 meq/Potassium Acetate 20 meq/ Magnesium Sulfate 12 meq/ Multivitamins 10 ml/Chromium/ Copper/Manganese/ Zinc 1 ml/Amino Acids/Dextrose/ Purified Water 2,204 ml @ 91 mls/hr [id number] IV 01/28/25 22:00 01/28/25 22:00 Cancel Lorazepam 1 mg ONCE PRN IV 01/28/25 15:30 Vancomycin HCl 150 ml @ 150 mls/hr Q10H IV 02/01/25 19:00 Laboratory Results Laboratory Tests 01/31/25 05:57 02/01/25 04:26 Urinalysis Test 01/23/25 21:44 Urine Color Colorless (Yellow) Urine Clarity Clear (Clear) Urine pH 7.5 (5.0-9.0) Urine Specific [place] 1.014 (1.001-1.035) Urine Protein Negative (Negative) Urine Ketones Negative (Negative) Urine Blood Negative /uL (Negative) Urine Nitrite Negative (Negative) Urine Bilirubin Negative (Negative) Urine Urobilinogen Normal mg/dL (Negative) Urine Leukocyte Esterase Negative /uL (Negative) Urine RBC 1 /hpf (0 - 3) Urine Microscopic WBC 1 /HPF (0-3) Urine Squamous Epithelial Cells Few /hpf (<5) Urine Bacteria Few /hpf (None Seen) H Urine Hyaline Casts Few /lpf (0 - 2) Urine Mucus Few (None Seen) Urine Glucose Normal mg/dL (Normal) Microbiology Microbiology Date/Time Source Procedure Growth Status 01/28/25 14:10 Cerebral Spinal Fluid Gram Stain - Final Resulted 01/28/25 14:10 Cerebral Spinal Fluid CSF Culture & Gram Stain (Tube 2) M - Preliminary Resulted 01/23/25 16:40 Blood Blood Culture - Final NO GROWTH AFTER 5 DAYS OF INCUBATION. Complete Assessment/Plan Assessment/Plan 59-year-old male with a known history of epilepsy presented to the hospital with a seizures found to have 1. Breakthrough seizure 2. Epilepsy 3. Sepsis secondary to suspected meningitis 4. History of multiple CVAs 5. Leukocytosis secondary to steroids -continue current seizure medications, discharge plan to alf facility, continue current IV antibiotics switched to p.o. antibiotics as ordered. Plan discussed with: Patient, Other My Orders Orders - DORI WRIGHT MD Procedure Category Date Status Time Discharge DISCHARGE 01/31/25 Transmitted 17:09 * Tobacco Prevention Health Educator CONS 01/31/25 Transmitted Consult Date of Service: Jan 31, 2025 Billing Provider: DORI WRIGHT MD Common Visit Codes: [id number] INP/OBS CARE(MOD) DORI WRIGHT MD Feb 01, 2025 15:07
[2025-02-01] MEDS: VANCOMYCIN 750mg/150ml 150 ML IV SCH (18:37)
[2025-02-02] VITALS (8 sets, daily range): BP systolic 110–133; BP diastolic 61–86; PULSE 60–87; RESP 12–20; TEMP 96.1–98.1; O2SAT 96–100
[2025-02-02 01:46] LABS: COVID19 ANTIGEN SOFIA FIA NEGATIVE (NEGATIVE); Rapid Influenza A Negative (Negative); Rapid Influenza B Negative (Negative)
[2025-02-02] MEDS: MELATONIN 5 MG TAB PO PRN (04:21)
[2025-02-02 06:57] LABS: Basophils # (auto) 0 10 ^3/uL (0-0.2); Eosinophils # (auto) 0 10 ^3/uL (0-0.8); Hematocrit 39.1 % (41.0-53.0); Hemoglobin 13.7 g/dL (13.5-17.5); Lymphocytes # (auto) 0.3 10 ^3/uL (0.4-5.4); Lymphocytes % (auto) 3.3 % (10.0-50.0); Mean Corpuscular Hemoglobin 31.8 pg (28.0-32.0); Mean Corpuscular Hgb Conc. 35.1 g/dL (32.0-36.0); Mean Corpuscular Volume 90.5 fL (80.0-100.0); Monocytes # (auto) 0.4 10 ^3/uL (0-1.3); Monocytes % (auto) 3.6 % (0.0-12.0); Neutrophils # (auto) 9.3 10 ^3/uL (1.6-8.6); Neutrophils % (auto) 93.1 % (37.0-80.0); Platelet Count (auto) 251 10^3/uL (140-450); Red Blood Cells 4.32 10^6/uL (4.5-5.90); Red Cell Distribution Width 13.6 % (11.8-14.3)
[2025-02-02] MEDS ORDERED: VANCOMYCIN 750mg/150ml 150 ML IV SCH (15:00)
[2025-02-02] MEDS: VANCOMYCIN 750MG KIT 100 ML IV SCH (15:02)
--- NOTE | 2025-02-02 15:27 | DVHPN2 ---
Subjective Patient denies any complaints, no seizures overnight, discharge orders were placed on January 31 but currently need P authorization for half-way facility placement. Reviewed: Care Plan, H&P Changes from previous H/P or p: No Changes General: Per HPI Objective Vitals Vital Signs Date Time Temp Pulse Resp B/P (MAP) Pulse Ox O2 Delivery O2 Flow Rate FiO2 02/02/25 09:00 96.1 61 17 133/86 (102) 97 96.1 02/02/25 08:00 Room Air* 0 21 Intake/Output Intake and Output 02/02/25 07:00 Intake Total 1444 ml Output Total 3050 ml Balance -1606 ml Intake Oral 890 ml IV Total 554 ml Output Urine Total 3050 ml # Bowel Movements 5 Exam HEENT pupils are reactive Neck is supple CV is S1-S2 regular rate and rhythm Respiratory diminished breath sounds bases GI positive bowel sound Extremity no edema 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 Medications Current Medications Medications Dose Ordered Sig/Clara Route Start Time Stop Time Status Last Admin Dose Admin Aspirin 81 mg DAILY PO 01/24/25 10:00 02/02/25 08:35 81 MG Atorvastatin Calcium 40 mg HS PO 01/23/25 22:00 02/01/25 22:44 40 MG Hydralazine HCl 10 mg Q6HP PRN IV 01/23/25 21:45 01/27/25 17:44 10 MG Ondansetron HCl 4 mg Q4HP PRN IV 01/23/25 21:45 Docusate Sodium 100 mg BIDPRN PRN PO 01/23/25 21:45 Acetaminophen 650 mg Q6HP PRN PO 01/23/25 21:45 Amlodipine Besylate 5 mg DAILY PO 01/24/25 10:00 02/02/25 08:34 5 MG Lorazepam 1 mg Q5MINP PRN IV 01/24/25 09:15 01/27/25 17:23 1 MG Vancomycin HCl 0 ml @ 0 mls/hr UD IV 01/24/25 12:00 Ceftriaxone Sodium/Dextrose 50 ml @ 50 mls/hr Q12HR@09,21 IV 01/24/25 21:00 02/02/25 08:35 50 MLS/HR Enoxaparin Sodium 40 mg DAILY SC 01/25/25 10:00 02/02/25 08:35 40 MG Levetiracetam 100 ml @ 400 mls/hr Q12H IV 01/26/25 15:30 02/02/25 14:56 400 MLS/HR Diagnostic Test (Pha) 1 strip Q6HR 01/26/25 18:00 02/02/25 12:23 1 STRIP Insulin Human Regular FOLLOW SLIDING SCALE Q6HR SC 01/26/25 18:00 02/02/25 12:23 12 UNITS Dextrose 50 ml UD IV 01/26/25 15:30 Pantoprazole Sodium 40 mg DAILY IV 01/27/25 10:00 02/02/25 08:35 40 MG Dexamethasone Sodium Phosphate 10 mg/Dextrose 51 ml @ 204 mls/hr Q6HR IV 01/28/25 00:00 02/02/25 11:54 204 MLS/HR Melatonin 5 mg HS PRN PO 01/28/25 00:30 02/02/25 04:21 5 MG Fat Emulsion Intravenous 150 ml/Sodium Chloride 40 meq/ Sodium Acetate 40 meq/Potassium Acetate 20 meq/ Magnesium Sulfate 12 meq/ Multivitamins 10 ml/Chromium/ Copper/Manganese/ Zinc 1 ml/Amino Acids/Dextrose/ Purified Water 2,204 ml @ 91 mls/hr [id number] IV 01/28/25 22:00 01/28/25 22:00 Cancel Lorazepam 1 mg ONCE PRN IV 01/28/25 15:30 Vancomycin HCl 100 ml @ 100 mls/hr Q10H IV 02/02/25 15:00 02/02/25 15:02 100 MLS/HR Laboratory Results Laboratory Tests 01/31/25 05:57 02/02/25 05:56 Urinalysis Test 01/23/25 21:44 Urine Color Colorless (Yellow) Urine Clarity Clear (Clear) Urine pH 7.5 (5.0-9.0) Urine Specific [place] 1.014 (1.001-1.035) Urine Protein Negative (Negative) Urine Ketones Negative (Negative) Urine Blood Negative /uL (Negative) Urine Nitrite Negative (Negative) Urine Bilirubin Negative (Negative) Urine Urobilinogen Normal mg/dL (Negative) Urine Leukocyte Esterase Negative /uL (Negative) Urine RBC 1 /hpf (0 - 3) Urine Microscopic WBC 1 /HPF (0-3) Urine Squamous Epithelial Cells Few /hpf (<5) Urine Bacteria Few /hpf (None Seen) H Urine Hyaline Casts Few /lpf (0 - 2) Urine Mucus Few (None Seen) Urine Glucose Normal mg/dL (Normal) Microbiology Microbiology Date/Time Source Procedure Growth Status 01/28/25 14:10 Cerebral Spinal Fluid Gram Stain - Final Complete 01/28/25 14:10 Cerebral Spinal Fluid CSF Culture & Gram Stain (Tube 2) M - Final Complete 01/23/25 16:40 Blood Blood Culture - Final NO GROWTH AFTER 5 DAYS OF INCUBATION. Complete Assessment/Plan Assessment/Plan 59-year-old male with a known history of epilepsy presented to the hospital with a seizures found to have 1. Breakthrough seizure 2. Epilepsy 3. Sepsis secondary to suspected meningitis 4. History of multiple CVAs 5. Leukocytosis secondary to steroids 6. Suspected meningitis although clinical suspicion was low on admission as per Infectious Disease, empirical treatment for two more weeks of p.o. antibiotics upon discharge -continue current seizure medications, discharge plan to half-way facility, continue current IV antibiotics switched to p.o. antibiotics as ordered. Plan discussed with: Patient, Other My Orders Orders - DORI WRIGHT MD Procedure Category Date Status Time Basic Metabolic Panel LAB 02/03/25 Verified 06:00 Complete Blood Count LAB 02/03/25 Verified 06:00 Magnesium LAB 02/03/25 Verified 06:00 Date of Service: Feb 02, 2025 Billing Provider: DORI WRIGHT MD Common Visit Codes: [id number] INP/OBS CARE(MOD) DORI WRIGHT MD Feb 02, 2025 15:27
[2025-02-02 22:07] LABS: Coccidioides CF Antibody <1:2 (<1:2)
[2025-02-03] VITALS (9 sets, daily range): BP systolic 113–139; BP diastolic 58–80; PULSE 55–72; RESP 16–19; TEMP 97.4–98; O2SAT 96–100
[2025-02-03 07:00] LABS: Basophils # (auto) 0 10 ^3/uL (0-0.2); Basophils % (auto) 0.1 % (0.0-2.0); Eosinophils # (auto) 0 10 ^3/uL (0-0.8); Eosinophils % (auto) 0.1 % (0.0-7.0); Hematocrit 39.1 % (41.0-53.0); Hemoglobin 14.1 g/dL (13.5-17.5); Lymphocytes # (auto) 0.4 10 ^3/uL (0.4-5.4); Lymphocytes % (auto) 2.9 % (10.0-50.0); Mean Corpuscular Volume 91.7 fL (80.0-100.0); Monocytes # (auto) 0.4 10 ^3/uL (0-1.3); Monocytes % (auto) 3.3 % (0.0-12.0); Neutrophils # (auto) 12.7 10 ^3/uL (1.6-8.6); Neutrophils % (auto) 93.6 % (37.0-80.0); Nucleated Red Blood Cells % 0.1 %; Platelet Count (auto) 257 10^3/uL (140-450); Red Blood Cells 4.26 10^6/uL (4.5-5.90); Red Cell Distribution Width 13.8 % (11.8-14.3); White Blood Cell 13.6 10^3/uL (4.4-10.8)
[2025-02-03 07:09] LABS: Anion Gap 9 (5-15); Carbon Dioxide 29 mmol/L (20-31); Potassium 3.9 mmol/L (3.5-5.1)
[2025-02-03 07:15] LABS: BUN/Creatinine Ratio 27.9 (10.0-20.0); Blood Urea Nitrogen 19 mg/dL (9-23)
[2025-02-03 07:20] LABS: Chloride 97 mmol/L (98-107); Glucose 123 mg/dL (74-106); Sodium 135 mmol/L (136-145)
--- NOTE | 2025-02-03 09:55 | DVHPN2 ---
Subjective The patient is seen and examined at bedside. The patient is working with physical therapy. The patient very weak however tried to walk with physical therapist. Reviewed: Care Plan, H&P Changes from previous H/P or p: No Changes General: Per HPI Objective Vitals Vital Signs Date Time Temp Pulse Resp B/P (MAP) Pulse Ox O2 Delivery O2 Flow Rate FiO2 02/03/25 09:00 97.5 60 16 130/68 (88) 98 97.5 02/02/25 20:00 Room Air* 0 N/A Nasal Cannula* Intake/Output Intake and Output 02/03/25 07:00 Intake Total 2160 ml Output Total 2600 ml Balance -440 ml Intake Oral 1556 ml IV Total 604 ml Output Urine Total 2600 ml # Bowel Movements 1 General Appearance: Alert, Cooperative, No acute distress HEENT: Atraumatic, PERRLA, EOMI, Mucous membr. moist/pink Neck: Supple Lungs: Clear to auscultation, Normal air movement Cardiovascular: Regular rate, Normal S1, Normal S2, No murmurs, Gallops, Rubs Abdomen: Normal bowel sounds, Soft, No tenderness, No hepatospenomegaly Neuro: Cranial nerves 3-12 NL Psych/Mental Status: Mental status NL Medications Current Medications Medications Dose Ordered Sig/Clara Route Start Time Stop Time Status Last Admin Dose Admin Aspirin 81 mg DAILY PO 01/24/25 10:00 02/03/25 08:48 81 MG Atorvastatin Calcium 40 mg HS PO 01/23/25 22:00 02/02/25 22:26 40 MG Hydralazine HCl 10 mg Q6HP PRN IV 01/23/25 21:45 01/27/25 17:44 10 MG Ondansetron HCl 4 mg Q4HP PRN IV 01/23/25 21:45 Docusate Sodium 100 mg BIDPRN PRN PO 01/23/25 21:45 Acetaminophen 650 mg Q6HP PRN PO 01/23/25 21:45 Amlodipine Besylate 5 mg DAILY PO 01/24/25 10:00 02/03/25 08:48 5 MG Lorazepam 1 mg Q5MINP PRN IV 01/24/25 09:15 01/27/25 17:23 1 MG Vancomycin HCl 0 ml @ 0 mls/hr UD IV 01/24/25 12:00 Ceftriaxone Sodium/Dextrose 50 ml @ 50 mls/hr Q12HR@09,21 IV 01/24/25 21:00 02/03/25 08:49 50 MLS/HR Enoxaparin Sodium 40 mg DAILY SC 01/25/25 10:00 02/03/25 08:43 40 MG Levetiracetam 100 ml @ 400 mls/hr Q12H IV 01/26/25 15:30 02/03/25 03:49 400 MLS/HR Diagnostic Test (Pha) 1 strip Q6HR 01/26/25 18:00 02/03/25 05:23 1 STRIP Insulin Human Regular FOLLOW SLIDING SCALE Q6HR SC 01/26/25 18:00 02/03/25 00:19 2 UNITS Dextrose 50 ml UD IV 01/26/25 15:30 Pantoprazole Sodium 40 mg DAILY IV 01/27/25 10:00 02/03/25 08:43 40 MG Dexamethasone Sodium Phosphate 10 mg/Dextrose 51 ml @ 204 mls/hr Q6HR IV 01/28/25 00:00 02/03/25 05:08 204 MLS/HR Melatonin 5 mg HS PRN PO 01/28/25 00:30 02/03/25 00:26 5 MG Fat Emulsion Intravenous 150 ml/Sodium Chloride 40 meq/ Sodium Acetate 40 meq/Potassium Acetate 20 meq/ Magnesium Sulfate 12 meq/ Multivitamins 10 ml/Chromium/ Copper/Manganese/ Zinc 1 ml/Amino Acids/Dextrose/ Purified Water 2,204 ml @ 91 mls/hr [id number] IV 01/28/25 22:00 01/28/25 22:00 Cancel Lorazepam 1 mg ONCE PRN IV 01/28/25 15:30 Vancomycin HCl 100 ml @ 100 mls/hr Q10H IV 02/02/25 15:00 02/03/25 00:58 100 MLS/HR Laboratory Results Laboratory Tests 02/03/25 06:38 Chemistry Test 02/03/25 06:38 Calcium Level 9.0 mg/dL (8.7-10.4) Magnesium Level 2.0 mg/dL (1.6-2.6) Urinalysis Test 01/23/25 21:44 Urine Color Colorless (Yellow) Urine Clarity Clear (Clear) Urine pH 7.5 (5.0-9.0) Urine Specific [place] 1.014 (1.001-1.035) Urine Protein Negative (Negative) Urine Ketones Negative (Negative) Urine Blood Negative /uL (Negative) Urine Nitrite Negative (Negative) Urine Bilirubin Negative (Negative) Urine Urobilinogen Normal mg/dL (Negative) Urine Leukocyte Esterase Negative /uL (Negative) Urine RBC 1 /hpf (0 - 3) Urine Microscopic WBC 1 /HPF (0-3) Urine Squamous Epithelial Cells Few /hpf (<5) Urine Bacteria Few /hpf (None Seen) H Urine Hyaline Casts Few /lpf (0 - 2) Urine Mucus Few (None Seen) Urine Glucose Normal mg/dL (Normal) Microbiology Microbiology Date/Time Source Procedure Growth Status 01/28/25 14:10 Cerebral Spinal Fluid Gram Stain - Final Complete 01/28/25 14:10 Cerebral Spinal Fluid CSF Culture & Gram Stain (Tube 2) M - Final Complete 01/23/25 16:40 Blood Blood Culture - Final NO GROWTH AFTER 5 DAYS OF INCUBATION. Complete Labs and/or images reviewed: Labs reviewed by me Assessment/Plan Assessment/Plan 59-year-old male with a known history of epilepsy presented to the hospital with a seizures found to have 1. Breakthrough seizure 2. Epilepsy 3. Sepsis secondary to suspected meningitis 4. History of multiple CVAs 5. Leukocytosis secondary to steroids 6. Suspected meningitis although clinical suspicion was low on admission as per Infectious Disease, empirical treatment for two more weeks of p.o. antibiotics upon discharge -continue current seizure medications, discharge plan to senior care facility, continue current IV antibiotics switched to p.o. antibiotics as ordered. Continuing current management. I spoke with physical therapist in his recommendation is the patient should have more rehab in senior care home facility. We will talk to pillowcase cleaner to place the patient to skilled nurse [facility] facility. This medical document was created using an electronic medical record system with [employer] direct computerized dictation system. Although this document has been carefully reviewed, there may still be some phonetic and typographical errors. These areas are purely typographical due to imperfections of the software programs, and do not reflect any compromise in the patient's medical care. Plan discussed with: Patient Date of Service: Feb 03, 2025 Billing Provider: OUMAR JONES MD Common Visit Codes: [id number] INP/OBS CARE(HIGH) OUMAR JONES MD Feb 03, 2025 09:55
[2025-02-03 13:07] LABS: Albumin, CSF 30 mg/dL (15-55); IgG, Quant, CSF 5.9 mg/dL (0.0-10.3); IgG, Syn Rate,CSF 6.1 mg/day (-9.9 TO +3.3)
--- NOTE | 2025-02-03 23:54 | DVHPN2 ---
Progress Note - Dictate Date Seen: Feb 03, 2025 Medical Necessity Reason Pt with a Central, PICC or Fol: No Subjective Mr. Li is a 59 years old right-handed gentleman with a history of hypertension, stroke with residual right-sided weakness, seizure disorder, he came to the [facility] on 01/23/2025 with a chief complaint of seizure activity. I have seen and examined the patient, I have talked to his sitter, nurse, he is fine, no headache, he was oriented to person, place, good social skills No seizure today Social work on case Re: Discharge planning CSF profile, 01/28/2025: WBC: 5, Emmet: 51% Poly: 49, Protein: 55, glucose: 93. IgG synthesis rate, 01/28/2025: 6.1 Urinalysis, 01/23/2025: WBC: 1, urine leukocyte esterase: Likely UDS, : Benzo Plasma alcohol, 01/23/2025: 4.8 WBC/HB/PLT/MCV, 01/24/2025: 12.7/15.3/223/91.1, 01/25/2025: 8.2/14.5/198/91.1 BMP 01/24/2025: Unremarkable Lactic acid, 01/23/2025: 3.7, 1.3 HGB A1c, 01/24/2025: 5 TBI/AST/ALT/AP, 01/23/2025: Normal, 01/24/2025: 1.7/38/29/109 TSH, 01/23/2025: 1.07 CT head 01/23/2025: 1. No acute intracranial hemorrhage 2. No CT findings of territorial ischemia MRI headache, 01/29/2025: 1. No acute intracranial process identified. 2. Moderate-sized old right cerebellar hemorrhagic infarct. vital signs Vital Sign Date Time Temp Pulse Resp B/P (MAP) Pulse Ox O2 Delivery O2 Flow Rate FiO2 02/03/25 21:00 98.0 72 18 123/58 (79) 97 98.0 02/03/25 08:00 Room Air* 0 21 Total Intake and Output 02/02/25 02/02/25 02/03/25 15:00 23:00 07:00 Intake Total 101 ml 1001 ml 1058 ml Output Total 1250 ml 1350 ml Balance 101 ml -249 ml -292 ml medications Current Medications Medications Dose Ordered Sig/Clara Route Start Time Stop Time Status Last Admin Dose Admin Aspirin 81 mg DAILY PO 01/24/25 10:00 02/03/25 08:48 81 MG Atorvastatin Calcium 40 mg HS PO 01/23/25 22:00 02/03/25 22:11 40 MG Hydralazine HCl 10 mg Q6HP PRN IV 01/23/25 21:45 01/27/25 17:44 10 MG Ondansetron HCl 4 mg Q4HP PRN IV 01/23/25 21:45 Docusate Sodium 100 mg BIDPRN PRN PO 01/23/25 21:45 Acetaminophen 650 mg Q6HP PRN PO 01/23/25 21:45 Amlodipine Besylate 5 mg DAILY PO 01/24/25 10:00 02/03/25 08:48 5 MG Lorazepam 1 mg Q5MINP PRN IV 01/24/25 09:15 01/27/25 17:23 1 MG Vancomycin HCl 0 ml @ 0 mls/hr UD IV 01/24/25 12:00 Ceftriaxone Sodium/Dextrose 50 ml @ 50 mls/hr Q12HR@09,21 IV 01/24/25 21:00 02/03/25 20:24 50 MLS/HR Enoxaparin Sodium 40 mg DAILY SC 01/25/25 10:00 02/03/25 08:43 40 MG Levetiracetam 100 ml @ 400 mls/hr Q12H IV 01/26/25 15:30 02/03/25 15:34 400 MLS/HR Diagnostic Test (Pha) 1 strip Q6HR 01/26/25 18:00 02/03/25 19:26 1 STRIP Insulin Human Regular FOLLOW SLIDING SCALE Q6HR SC 01/26/25 18:00 02/03/25 13:49 12 UNITS Dextrose 50 ml UD IV 01/26/25 15:30 Pantoprazole Sodium 40 mg DAILY IV 01/27/25 10:00 02/03/25 08:43 40 MG Dexamethasone Sodium Phosphate 10 mg/Dextrose 51 ml @ 204 mls/hr Q6HR IV 01/28/25 00:00 02/03/25 17:33 204 MLS/HR Melatonin 5 mg HS PRN PO 01/28/25 00:30 02/03/25 00:26 5 MG Fat Emulsion Intravenous 150 ml/Sodium Chloride 40 meq/ Sodium Acetate 40 meq/Potassium Acetate 20 meq/ Magnesium Sulfate 12 meq/ Multivitamins 10 ml/Chromium/ Copper/Manganese/ Zinc 1 ml/Amino Acids/Dextrose/ Purified Water 2,204 ml @ 91 mls/hr [id number] IV 01/28/25 22:00 01/28/25 22:00 Cancel Lorazepam 1 mg ONCE PRN IV 01/28/25 15:30 Vancomycin HCl 100 ml @ 100 mls/hr Q10H IV 02/02/25 15:00 02/03/25 22:11 100 MLS/HR objective General: the patient is well developed and nourished. No acute distress. MENTAL STATUS: Subjective SPEECH, LANGUAGE, HIGHER CORTICAL FUNCTION: No aphasia or dysarthria CRANIAL NERVES: Pupils are equal, round and reactive. EOMs full and conjugate. Facial sensation intact in all three divisions bilaterally. Mandibular strength intact. Mild Right facial weakness with some lower motor neuron features SENSATION: Sensation to touch and pinprick is ok MOTOR: Normal tone in the upper and lower extremity. Normal muscle bulk. No fasciculations. No abnormal movements or posturing. Muscle strength of the major groups in the left extremity is more than 4/5. Muscle strength of he major groups in the right extremities is: Upper extremity:4/5, lower extremity: 3/5. REFLEXES: Deep tendon reflexes are symmetrical. No pathological reflexes. CEREBELLAR/COORDINATION: Deferred GAIT/STATION: deferred. laboratory and microbiology Laboratory Tests 02/03/25 06:38 Test 02/03/25 06:38 Range/Units Serum Glucose 123 H 74-106 mg/dL Problem List Status epileptics Grand mal seizure Right hemiplegia ? Hammad's paralysis ? New stroke Chronic stroke Altered mental status Postictal confusion Metabolic encephalopathy Fever, abnormal CSF profile ? Partial treated meningitis Assessment/Plan Monitoring Supportive treatment Aerosol isolation Telemetry Keppra 1500 mg b.i.d. Ativan for seizure breakthrough Aspirin 81 mg daily Lipitor 40 mg daily Up to chair Physical therapy ID on case Re: meningitis Social service on case This medical document was created using an electronic medical record system with [employer] dictation system. Although this document has been carefully reviewed, there may still be some phonetic and typographical errors. These areas are purely typographical due to imperfections of the software programs, and do not reflect any compromise in the patient's medical care. Prognosis poor Dietary Evaluation Review Comments: 1) If NPO > 7 days, consider EN/TPN to meet at least 75% estimated daily needs 2) Initiate Pro-Stat @ 30 mL qd 3) Initiate vitamin C @ 500 mg bid and zinc sulfate @ 220 mg qd for 7-10 days 4) Advance to 2g Na diet when medically feasible, pending VETERINARY ASSISTANT TECHNICIAN approval 5) Follow-up with neurology Expected Outcomes/Goals: 1) patient to receive nutritional support within 7 days 2) labs and wound to improve 3) diet to advance 4) f/u in 2-3 days Plan discussed with: Other KARLENE JUAREZ MD Feb 03, 2025 23:54
[2025-02-04] VITALS (8 sets, daily range): BP systolic 111–129; BP diastolic 62–70; PULSE 57–80; RESP 16–19; TEMP 97.6–98.2; O2SAT 95–99
--- NOTE | 2025-02-04 10:55 | DVHPN2 ---
Subjective The patient is seen and examined at bedside. The patient is working with physical therapy. The patient very weak however tried to walk with physical therapist. Reviewed: Care Plan, H&P Changes from previous H/P or p: No Changes General: Per HPI Objective Vitals Vital Signs Date Time Temp Pulse Resp B/P (MAP) Pulse Ox O2 Delivery O2 Flow Rate FiO2 02/04/25 09:47 111/63 02/04/25 08:36 97.6 68 18 97 97.6 02/03/25 20:00 Room Air* 0 21 Intake/Output Intake and Output 02/04/25 07:00 Intake Total 2021 ml Output Total 3300 ml Balance -1279 ml Intake Oral 1570 ml IV Total 451 ml Output Urine Total 3300 ml General Appearance: Alert, Cooperative, No acute distress HEENT: Atraumatic, PERRLA, EOMI, Mucous membr. moist/pink Neck: Supple Lungs: Clear to auscultation, Normal air movement Cardiovascular: Regular rate, Normal S1, Normal S2, No murmurs, Gallops, Rubs Abdomen: Normal bowel sounds, Soft, No tenderness, No hepatospenomegaly Neuro: Cranial nerves 3-12 NL Psych/Mental Status: Mental status NL Medications Current Medications Medications Dose Ordered Sig/Clara Route Start Time Stop Time Status Last Admin Dose Admin Aspirin 81 mg DAILY PO 01/24/25 10:00 02/04/25 09:47 81 MG Atorvastatin Calcium 40 mg HS PO 01/23/25 22:00 02/03/25 22:11 40 MG Hydralazine HCl 10 mg Q6HP PRN IV 01/23/25 21:45 01/27/25 17:44 10 MG Ondansetron HCl 4 mg Q4HP PRN IV 01/23/25 21:45 Docusate Sodium 100 mg BIDPRN PRN PO 01/23/25 21:45 Acetaminophen 650 mg Q6HP PRN PO 01/23/25 21:45 Amlodipine Besylate 5 mg DAILY PO 01/24/25 10:00 02/04/25 09:47 5 MG Lorazepam 1 mg Q5MINP PRN IV 01/24/25 09:15 01/27/25 17:23 1 MG Vancomycin HCl 0 ml @ 0 mls/hr UD IV 01/24/25 12:00 Ceftriaxone Sodium/Dextrose 50 ml @ 50 mls/hr Q12HR@09,21 IV 01/24/25 21:00 02/04/25 09:46 50 MLS/HR Enoxaparin Sodium 40 mg DAILY SC 01/25/25 10:00 02/04/25 09:47 40 MG Levetiracetam 100 ml @ 400 mls/hr Q12H IV 01/26/25 15:30 02/04/25 03:40 400 MLS/HR Diagnostic Test (Pha) 1 strip Q6HR 01/26/25 18:00 02/04/25 05:21 1 STRIP Insulin Human Regular FOLLOW SLIDING SCALE Q6HR SC 01/26/25 18:00 02/04/25 00:15 2 UNITS Dextrose 50 ml UD IV 01/26/25 15:30 Pantoprazole Sodium 40 mg DAILY IV 01/27/25 10:00 02/04/25 09:46 40 MG Dexamethasone Sodium Phosphate 10 mg/Dextrose 51 ml @ 204 mls/hr Q6HR IV 01/28/25 00:00 02/04/25 05:15 204 MLS/HR Melatonin 5 mg HS PRN PO 01/28/25 00:30 02/03/25 00:26 5 MG Fat Emulsion Intravenous 150 ml/Sodium Chloride 40 meq/ Sodium Acetate 40 meq/Potassium Acetate 20 meq/ Magnesium Sulfate 12 meq/ Multivitamins 10 ml/Chromium/ Copper/Manganese/ Zinc 1 ml/Amino Acids/Dextrose/ Purified Water 2,204 ml @ 91 mls/hr [id number] IV 01/28/25 22:00 01/28/25 22:00 Cancel Lorazepam 1 mg ONCE PRN IV 01/28/25 15:30 Vancomycin HCl 100 ml @ 100 mls/hr Q10H IV 02/02/25 15:00 02/04/25 06:32 100 MLS/HR Laboratory Results Laboratory Tests 02/03/25 06:38 Urinalysis Test 01/23/25 21:44 Urine Color Colorless (Yellow) Urine Clarity Clear (Clear) Urine pH 7.5 (5.0-9.0) Urine Specific [place] 1.014 (1.001-1.035) Urine Protein Negative (Negative) Urine Ketones Negative (Negative) Urine Blood Negative /uL (Negative) Urine Nitrite Negative (Negative) Urine Bilirubin Negative (Negative) Urine Urobilinogen Normal mg/dL (Negative) Urine Leukocyte Esterase Negative /uL (Negative) Urine RBC 1 /hpf (0 - 3) Urine Microscopic WBC 1 /HPF (0-3) Urine Squamous Epithelial Cells Few /hpf (<5) Urine Bacteria Few /hpf (None Seen) H Urine Hyaline Casts Few /lpf (0 - 2) Urine Mucus Few (None Seen) Urine Glucose Normal mg/dL (Normal) Microbiology Microbiology Date/Time Source Procedure Growth Status 01/28/25 14:10 Cerebral Spinal Fluid Gram Stain - Final Complete 01/28/25 14:10 Cerebral Spinal Fluid CSF Culture & Gram Stain (Tube 2) M - Final Complete 01/23/25 16:40 Blood Blood Culture - Final NO GROWTH AFTER 5 DAYS OF INCUBATION. Complete Labs and/or images reviewed: Labs reviewed by me Assessment/Plan Assessment/Plan 59-year-old male with a known history of epilepsy presented to the hospital with a seizures found to have 1. Breakthrough seizure 2. Epilepsy 3. Sepsis secondary to suspected meningitis 4. History of multiple CVAs 5. Leukocytosis secondary to steroids 6. Suspected meningitis although clinical suspicion was low on admission as per Infectious Disease, empirical treatment for two more weeks of p.o. antibiotics upon discharge -continue current seizure medications, discharge plan to halfway facility, continue current IV antibiotics switched to p.o. antibiotics as ordered. Continuing current management. I spoke with physical therapist in his recommendation is the patient should have more rehab in halfway home facility. We will talk to case assembler to place the patient to skilled nurse known facility. This medical document was created using an electronic medical record system with [employer] computerized dictation system. Although this document has been carefully reviewed, there may still be some phonetic and typographical errors. These areas are purely typographical due to imperfections of the software programs, and do not reflect any compromise in the patient's medical care. Plan discussed with: Patient Date of Service: Feb 04, 2025 Billing Provider: OUMAR JONES MD Common Visit Codes: [id number] INP/OBS CARE(HIGH) OUMAR JONES MD Feb 04, 2025 10:55
[2025-02-04 12:18] LABS: Basophils # (auto) 0 10 ^3/uL (0-0.2); Basophils % (auto) 0.1 % (0.0-2.0); Eosinophils # (auto) 0 10 ^3/uL (0-0.8); Hematocrit 46.2 % (41.0-53.0); Hemoglobin 15.5 g/dL (13.5-17.5); Lymphocytes # (auto) 0.3 10 ^3/uL (0.4-5.4); Mean Corpuscular Hemoglobin 30.7 pg (28.0-32.0); Mean Corpuscular Hgb Conc. 33.6 g/dL (32.0-36.0); Mean Corpuscular Volume 91.5 fL (80.0-100.0); Monocytes # (auto) 0.9 10 ^3/uL (0-1.3); Monocytes % (auto) 5.1 % (0.0-12.0); Neutrophils # (auto) 15.6 10 ^3/uL (1.6-8.6); Neutrophils % (auto) 92.8 % (37.0-80.0); Platelet Count (auto) 279 10^3/uL (140-450); Red Blood Cells 5.05 10^6/uL (4.5-5.90); Red Cell Distribution Width 13.8 % (11.8-14.3); White Blood Cell 16.8 10^3/uL (4.4-10.8)
[2025-02-04] MEDS: levETIRAcetam 500 MG TAB PO SCH (12:18)
[2025-02-05] VITALS (8 sets, daily range): BP systolic 105–135; BP diastolic 60–79; PULSE 80–95; RESP 18–20; TEMP 97.3–98; O2SAT 95–98
[2025-02-05 00:06] LABS: HSV-1 DNA CSF Negative (Negative); HSV-2 DNA Negative (Negative)
--- NOTE | 2025-02-05 11:20 | DVHPN2 ---
Subjective The patient is seen and examined at bedside. The patient is working with physical therapy. The patient very weak however tried to walk with physical therapist. Reviewed: Care Plan, H&P Changes from previous H/P or p: No Changes General: Per HPI Objective Vitals Vital Signs Date Time Temp Pulse Resp B/P (MAP) Pulse Ox O2 Delivery O2 Flow Rate FiO2 02/05/25 09:46 128/79 02/05/25 08:33 97.8 85 20 98 97.8 02/04/25 20:00 Room Air* 0 21 Intake/Output Intake and Output 02/05/25 07:00 Intake Total 3042 ml Output Total 2125 ml Balance 917 ml Intake Oral 2791 ml IV Total 251 ml Output Urine Total 2125 ml General Appearance: Alert, Cooperative, No acute distress HEENT: Atraumatic, PERRLA, EOMI, Mucous membr. moist/pink Neck: Supple Lungs: Clear to auscultation, Normal air movement Cardiovascular: Regular rate, Normal S1, Normal S2, No murmurs, Gallops, Rubs Abdomen: Normal bowel sounds, Soft, No tenderness, No hepatospenomegaly Neuro: Cranial nerves 3-12 NL Psych/Mental Status: Mental status NL Medications Current Medications Medications Dose Ordered Sig/Clara Route Start Time Stop Time Status Last Admin Dose Admin Aspirin 81 mg DAILY PO 01/24/25 10:00 02/05/25 09:45 81 MG Atorvastatin Calcium 40 mg HS PO 01/23/25 22:00 02/04/25 21:30 40 MG Hydralazine HCl 10 mg Q6HP PRN IV 01/23/25 21:45 01/27/25 17:44 10 MG Ondansetron HCl 4 mg Q4HP PRN IV 01/23/25 21:45 Docusate Sodium 100 mg BIDPRN PRN PO 01/23/25 21:45 Acetaminophen 650 mg Q6HP PRN PO 01/23/25 21:45 Amlodipine Besylate 5 mg DAILY PO 01/24/25 10:00 02/05/25 09:46 5 MG Lorazepam 1 mg Q5MINP PRN IV 01/24/25 09:15 01/27/25 17:23 1 MG Ceftriaxone Sodium/Dextrose 50 ml @ 50 mls/hr Q12HR@ IV 01/24/25 21:00 02/05/25 09:46 50 MLS/HR Enoxaparin Sodium 40 mg DAILY SC 01/25/25 10:00 02/05/25 09:45 40 MG Diagnostic Test (Pha) 1 strip Q6HR 01/26/25 18:00 02/05/25 05:27 1 STRIP Insulin Human Regular FOLLOW SLIDING SCALE Q6HR SC 01/26/25 18:00 02/05/25 05:28 2 UNITS Dextrose 50 ml UD IV 01/26/25 15:30 Pantoprazole Sodium 40 mg DAILY IV 01/27/25 10:00 02/05/25 09:46 40 MG Dexamethasone Sodium Phosphate 10 mg/Dextrose 51 ml @ 204 mls/hr Q6HR IV 01/28/25 00:00 02/04/25 18:21 204 MLS/HR Melatonin 5 mg HS PRN PO 01/28/25 00:30 02/05/25 02:11 5 MG Fat Emulsion Intravenous 150 ml/Sodium Chloride 40 meq/ Sodium Acetate 40 meq/Potassium Acetate 20 meq/ Magnesium Sulfate 12 meq/ Multivitamins 10 ml/Chromium/ Copper/Manganese/ Zinc 1 ml/Amino Acids/Dextrose/ Purified Water 2,204 ml @ 91 mls/hr [id number] IV 01/28/25 22:00 01/28/25 22:00 Cancel Lorazepam 1 mg ONCE PRN IV 01/28/25 15:30 Vancomycin HCl 100 ml @ 100 mls/hr Q10H IV 02/02/25 15:00 Hold 02/04/25 06:32 100 MLS/HR Levetiracetam 1,500 mg BID PO 02/04/25 12:00 02/05/25 09:46 1,500 MG Laboratory Results Laboratory Tests 02/03/25 06:38 02/04/25 11:52 Urinalysis Test 01/23/25 21:44 Urine Color Colorless (Yellow) Urine Clarity Clear (Clear) Urine pH 7.5 (5.0-9.0) Urine Specific [place] 1.014 (1.001-1.035) Urine Protein Negative (Negative) Urine Ketones Negative (Negative) Urine Blood Negative /uL (Negative) Urine Nitrite Negative (Negative) Urine Bilirubin Negative (Negative) Urine Urobilinogen Normal mg/dL (Negative) Urine Leukocyte Esterase Negative /uL (Negative) Urine RBC 1 /hpf (0 - 3) Urine Microscopic WBC 1 /HPF (0-3) Urine Squamous Epithelial Cells Few /hpf (<5) Urine Bacteria Few /hpf (None Seen) H Urine Hyaline Casts Few /lpf (0 - 2) Urine Mucus Few (None Seen) Urine Glucose Normal mg/dL (Normal) Microbiology Microbiology Date/Time Source Procedure Growth Status 01/28/25 14:10 Cerebral Spinal Fluid Gram Stain - Final Complete 01/28/25 14:10 Cerebral Spinal Fluid CSF Culture & Gram Stain (Tube 2) M - Final Complete 01/23/25 16:40 Blood Blood Culture - Final NO GROWTH AFTER 5 DAYS OF INCUBATION. Complete Labs and/or images reviewed: Labs reviewed by me Assessment/Plan Assessment/Plan 59-year-old male with a known history of epilepsy presented to the hospital with a seizures found to have 1. Breakthrough seizure 2. Epilepsy 3. Sepsis secondary to suspected meningitis 4. History of multiple CVAs 5. Leukocytosis secondary to steroids 6. Suspected meningitis although clinical suspicion was low on admission as per Infectious Disease, empirical treatment for two more weeks of p.o. antibiotics upon discharge -continue current seizure medications, discharge plan to half-way facility, continue current IV antibiotics switched to p.o. antibiotics as ordered. Continuing current management. I spoke with physical therapist in his recommendation is the patient should have more rehab in half-way home facility. We will talk to case packer to place the patient to skilled nurse known facility. This medical document was created using an electronic medical record system with M[employer] direct computerized dictation system. Although this document has been carefully reviewed, there may still be some phonetic and typographical errors. These areas are purely typographical due to imperfections of the software programs, and do not reflect any compromise in the patient's medical care. Plan discussed with: Patient, Other (Rn) My Orders Orders - OUMAR JONES MD Procedure Category Date Status Time Levetiracetam Tablet PHA 02/04/25 In Process (Keppra Tablet) 12:00 Date of Service: Feb 05, 2025 Billing Provider: OUMAR JONES MD Common Visit Codes: [id number] INP/OBS CARE(HIGH) OUMAR JONES MD Feb 05, 2025 11:19
[2025-02-05 12:07] LABS: VDRL, Cererbrospinal Fluid Non Reactive (Non Rea:<1:1)
[2025-02-06] VITALS (8 sets, daily range): BP systolic 109–146; BP diastolic 61–73; PULSE 70–91; RESP 16–18; TEMP 97.9–98.2; O2SAT 91–100
--- NOTE | 2025-02-06 11:55 | DVHPN2 ---
Subjective The patient is seen and examined at bedside. The patient is working with physical therapy. Reviewed: Care Plan, H&P Changes from previous H/P or p: No Changes General: Per HPI Objective Vitals Vital Signs Date Time Temp Pulse Resp B/P (MAP) Pulse Ox O2 Delivery O2 Flow Rate FiO2 02/06/25 09:32 132/73 02/06/25 08:53 97.9 70 16 100 97.9 02/06/25 08:00 Room Air* 0 21 Intake/Output Intake and Output 02/06/25 07:00 Intake Total 1621 ml Output Total 1250 ml Balance 371 ml Intake Oral 1470 ml IV Total 151 ml Output Urine Total 1250 ml # Bowel Movements 2 General Appearance: Alert, Cooperative, No acute distress HEENT: Atraumatic, PERRLA, EOMI, Mucous membr. moist/pink Neck: Supple Lungs: Clear to auscultation, Normal air movement Cardiovascular: Regular rate, Normal S1, Normal S2, No murmurs, Gallops, Rubs Abdomen: Normal bowel sounds, Soft, No tenderness, No hepatospenomegaly Neuro: Cranial nerves 3-12 NL Psych/Mental Status: Mental status NL Medications Current Medications Medications Dose Ordered Sig/Clara Route Start Time Stop Time Status Last Admin Dose Admin Aspirin 81 mg DAILY PO 01/24/25 10:00 02/06/25 09:31 81 MG Atorvastatin Calcium 40 mg HS PO 01/23/25 22:00 02/05/25 21:09 40 MG Hydralazine HCl 10 mg Q6HP PRN IV 01/23/25 21:45 01/27/25 17:44 10 MG Ondansetron HCl 4 mg Q4HP PRN IV 01/23/25 21:45 Docusate Sodium 100 mg BIDPRN PRN PO 01/23/25 21:45 Acetaminophen 650 mg Q6HP PRN PO 01/23/25 21:45 Amlodipine Besylate 5 mg DAILY PO 01/24/25 10:00 02/06/25 09:32 5 MG Lorazepam 1 mg Q5MINP PRN IV 01/24/25 09:15 01/27/25 17:23 1 MG Ceftriaxone Sodium/Dextrose 50 ml @ 50 mls/hr Q12HR@ IV 01/24/25 21:00 02/06/25 09:31 50 MLS/HR Diagnostic Test (Pha) 1 strip Q6HR 01/26/25 18:00 02/06/25 11:01 1 STRIP Insulin Human Regular FOLLOW SLIDING SCALE Q6HR SC 01/26/25 18:00 02/06/25 11:00 4 UNITS Dextrose 50 ml UD IV 01/26/25 15:30 Pantoprazole Sodium 40 mg DAILY IV 01/27/25 10:00 02/06/25 09:32 40 MG Dexamethasone Sodium Phosphate 10 mg/Dextrose 51 ml @ 204 mls/hr Q6HR IV 01/28/25 00:00 02/06/25 05:21 204 MLS/HR Melatonin 5 mg HS PRN PO 01/28/25 00:30 02/06/25 01:07 5 MG Fat Emulsion Intravenous 150 ml/Sodium Chloride 40 meq/ Sodium Acetate 40 meq/Potassium Acetate 20 meq/ Magnesium Sulfate 12 meq/ Multivitamins 10 ml/Chromium/ Copper/Manganese/ Zinc 1 ml/Amino Acids/Dextrose/ Purified Water 2,204 ml @ 91 mls/hr [id number] IV 01/28/25 22:00 01/28/25 22:00 Cancel Lorazepam 1 mg ONCE PRN IV 01/28/25 15:30 Levetiracetam 1,500 mg BID PO 02/04/25 12:00 02/06/25 09:31 1,500 MG Laboratory Results Laboratory Tests 02/03/25 06:38 02/04/25 11:52 Urinalysis Test 01/23/25 21:44 Urine Color Colorless (Yellow) Urine Clarity Clear (Clear) Urine pH 7.5 (5.0-9.0) Urine Specific [place] 1.014 (1.001-1.035) Urine Protein Negative (Negative) Urine Ketones Negative (Negative) Urine Blood Negative /uL (Negative) Urine Nitrite Negative (Negative) Urine Bilirubin Negative (Negative) Urine Urobilinogen Normal mg/dL (Negative) Urine Leukocyte Esterase Negative /uL (Negative) Urine RBC 1 /hpf (0 - 3) Urine Microscopic WBC 1 /HPF (0-3) Urine Squamous Epithelial Cells Few /hpf (<5) Urine Bacteria Few /hpf (None Seen) H Urine Hyaline Casts Few /lpf (0 - 2) Urine Mucus Few (None Seen) Urine Glucose Normal mg/dL (Normal) Microbiology Microbiology Date/Time Source Procedure Growth Status 01/28/25 14:10 Cerebral Spinal Fluid Gram Stain - Final Complete 01/28/25 14:10 Cerebral Spinal Fluid CSF Culture & Gram Stain (Tube 2) M - Final Complete 01/23/25 16:40 Blood Blood Culture - Final NO GROWTH AFTER 5 DAYS OF INCUBATION. Complete Labs and/or images reviewed: Labs reviewed by me Assessment/Plan Assessment/Plan 59-year-old male with a known history of epilepsy presented to the hospital with a seizures found to have 1. Breakthrough seizure 2. Epilepsy 3. Sepsis secondary to suspected meningitis 4. History of multiple CVAs 5. Leukocytosis secondary to steroids 6. Suspected meningitis although clinical suspicion was low on admission as per Infectious Disease, empirical treatment for two more weeks of p.o. antibiotics upon discharge -continue current seizure medications, discharge plan to halfway facility, continue current IV antibiotics switched to p.o. antibiotics as ordered. Continuing current management. I spoke with physical therapist in his recommendation is the patient should have more rehab in halfway home facility. Waiting for placement. This medical document was created using an electronic medical record system with M*M [employer] direct computerized dictation system. Although this document has been carefully reviewed, there may still be some phonetic and typographical errors. These areas are purely typographical due to imperfections of the software programs, and do not reflect any compromise in the patient's medical care. Plan discussed with: Patient Date of Service: Feb 06, 2025 Billing Provider: OUMAR JONES MD Common Visit Codes: [id number] INP/OBS CARE(HIGH) OUMAR JONES MD Feb 06, 2025 11:55
--- NOTE | 2025-02-06 23:50 | DVHPN2 ---
Progress Note - Dictate Date Seen: Feb 06, 2025 Medical Necessity Reason Pt with a Central, PICC or Fol: No Subjective Mr. Li is a 59 years old right-handed gentleman with a history of hypertension, stroke with residual right-sided weakness, seizure disorder, he came to the [facility] on 01/23/2025 with a chief complaint of seizure activity. I have seen and examined the patient, I have talked to his sitter, nurse, he is fine, no headache, he was oriented to person, place, good social skills No seizure CSF profile, 01/28/2025: WBC: 5, [place]: 51% Poly: 49, Protein: 55, glucose: 93. IgG synthesis rate, 01/28/2025: 6.1 Urinalysis, 01/23/2025: WBC: 1, urine leukocyte esterase: Likely UDS, : Benzo Plasma alcohol, 01/23/2025: 4.8 WBC/HB/PLT/MCV, 01/24/2025: 12.7/15.3/223/91.1, 01/25/2025: 8.2/14.5/198/91.1 BMP 01/24/2025: Unremarkable Lactic acid, 01/23/2025: 3.7, 1.3 HGB A1c, 01/24/2025: 5 TBI/AST/ALT/AP, 01/23/2025: Normal, 01/24/2025: 1.7/38/29/109 TSH, 01/23/2025: 1.07 CT head 01/23/2025: 1. No acute intracranial hemorrhage 2. No CT findings of territorial ischemia MRI headache, 01/29/2025: 1. No acute intracranial process identified. 2. Moderate-sized old right cerebellar hemorrhagic infarct. vital signs Vital Sign Date Time Temp Pulse Resp B/P (MAP) Pulse Ox O2 Delivery O2 Flow Rate FiO2 02/06/25 20:49 98.2 91 16 109/61 (77) 95 98.2 02/06/25 08:00 Room Air* 0 21 Total Intake and Output 02/05/25 02/05/25 02/06/25 15:00 23:00 07:00 Intake Total 395 ml 695 ml 531 ml Output Total 600 ml 650 ml Balance 395 ml 95 ml -119 ml medications Current Medications Medications Dose Ordered Sig/Clara Route Start Time Stop Time Status Last Admin Dose Admin Aspirin 81 mg DAILY PO 01/24/25 10:00 02/06/25 09:31 81 MG Atorvastatin Calcium 40 mg HS PO 01/23/25 22:00 02/06/25 22:15 40 MG Hydralazine HCl 10 mg Q6HP PRN IV 01/23/25 21:45 01/27/25 17:44 10 MG Ondansetron HCl 4 mg Q4HP PRN IV 01/23/25 21:45 Docusate Sodium 100 mg BIDPRN PRN PO 01/23/25 21:45 Acetaminophen 650 mg Q6HP PRN PO 01/23/25 21:45 Amlodipine Besylate 5 mg DAILY PO 01/24/25 10:00 02/06/25 09:32 5 MG Lorazepam 1 mg Q5MINP PRN IV 01/24/25 09:15 01/27/25 17:23 1 MG Ceftriaxone Sodium/Dextrose 50 ml @ 50 mls/hr Q12HR@ IV 01/24/25 21:00 02/06/25 22:16 50 MLS/HR Diagnostic Test (Pha) 1 strip Q6HR 01/26/25 18:00 02/06/25 22:38 1 STRIP Insulin Human Regular FOLLOW SLIDING SCALE Q6HR SC 01/26/25 18:00 02/06/25 22:25 8 UNITS Dextrose 50 ml UD IV 01/26/25 15:30 Pantoprazole Sodium 40 mg DAILY IV 01/27/25 10:00 02/06/25 09:32 40 MG Dexamethasone Sodium Phosphate 10 mg/Dextrose 51 ml @ 204 mls/hr Q6HR IV 01/28/25 00:00 02/06/25 18:05 204 MLS/HR Melatonin 5 mg HS PRN PO 01/28/25 00:30 02/06/25 22:15 5 MG Fat Emulsion Intravenous 150 ml/Sodium Chloride 40 meq/ Sodium Acetate 40 meq/Potassium Acetate 20 meq/ Magnesium Sulfate 12 meq/ Multivitamins 10 ml/Chromium/ Copper/Manganese/ Zinc 1 ml/Amino Acids/Dextrose/ Purified Water 2,204 ml @ 91 mls/hr [id number] IV 01/28/25 22:00 01/28/25 22:00 Cancel Lorazepam 1 mg ONCE PRN IV 01/28/25 15:30 Levetiracetam 1,500 mg BID PO 02/04/25 12:00 02/06/25 22:16 1,500 MG objective General: the patient is well developed and nourished. No acute distress. MENTAL STATUS: Subjective SPEECH, LANGUAGE, HIGHER CORTICAL FUNCTION: No aphasia or dysarthria CRANIAL NERVES: Pupils are equal, round and reactive. EOMs full and conjugate. Facial sensation intact in all three divisions bilaterally. Mandibular strength intact. Mild Right facial weakness with some lower motor neuron features SENSATION: Sensation to touch and pinprick is ok MOTOR: Normal tone in the upper and lower extremity. Normal muscle bulk. No fasciculations. No abnormal movements or posturing. Muscle strength of the major groups in the left extremity is more than 4/5. Muscle strength of he major groups in the right extremities is: Upper extremity:4/5, lower extremity: 3/5. REFLEXES: Deep tendon reflexes are symmetrical. No pathological reflexes. CEREBELLAR/COORDINATION: Deferred GAIT/STATION: deferred. laboratory and microbiology Laboratory Tests 02/04/25 11:52 02/03/25 06:38 Test 02/03/25 06:38 Range/Units Serum Glucose 123 H 74-106 mg/dL Problem List Status epileptics Grand mal seizure Right hemiplegia ? Hammad's paralysis ? New stroke Chronic stroke Altered mental status Postictal confusion Metabolic encephalopathy Fever, abnormal CSF profile ? Partial treated meningitis Assessment/Plan Monitoring Supportive treatment Aerosol isolation Telemetry Keppra 1500 mg b.i.d. Ativan for seizure breakthrough Aspirin 81 mg daily Lipitor 40 mg daily Up to chair Physical therapy ID on case Re: meningitis Social service on case This medical document was created using an electronic medical record system with [employer] dictation system. Although this document has been carefully reviewed, there may still be some phonetic and typographical errors. These areas are purely typographical due to imperfections of the software programs, and do not reflect any compromise in the patient's medical care. Prognosis poor Dietary Evaluation Review Comments: 1) If NPO > 7 days, consider EN/TPN to meet at least 75% estimated daily needs 2) Initiate Pro-Stat @ 30 mL qd 3) Initiate vitamin C @ 500 mg bid and zinc sulfate @ 220 mg qd for 7-10 days 4) Advance to 2g Na diet when medically feasible, pending [employer] approval 5) Follow-up with neurology Expected Outcomes/Goals: 1) patient to receive nutritional support within 7 days 2) labs and wound to improve 3) diet to advance 4) f/u in 2-3 days Plan discussed with: Other KARLENE JUAREZ MD Feb 06, 2025 23:50
[2025-02-07] VITALS (8 sets, daily range): BP systolic 111–129; BP diastolic 57–76; PULSE 62–94; RESP 17–20; TEMP 97.5–97.9; O2SAT 95–99
--- NOTE | 2025-02-07 12:27 | DVHPN2 ---
Subjective The patient is seen and examined at bedside. The patient is working with physical therapy. Reviewed: Care Plan, H&P Changes from previous H/P or p: No Changes General: Per HPI Objective Vitals Vital Signs Date Time Temp Pulse Resp B/P (MAP) Pulse Ox O2 Delivery O2 Flow Rate FiO2 02/07/25 11:23 111/57 02/07/25 09:00 97.8 94 20 99 97.8 02/06/25 20:00 Room Air* 0 21 Intake/Output Intake and Output 02/07/25 06:59 Intake Total 1921 ml Output Total 3350 ml Balance -1429 ml Intake Oral 1820 ml IV Total 101 ml Output Urine Total 3350 ml # Bowel Movements 4 General Appearance: Alert, Cooperative, No acute distress HEENT: Atraumatic, PERRLA, EOMI, Mucous membr. moist/pink Neck: Supple Lungs: Clear to auscultation, Normal air movement Cardiovascular: Regular rate, Normal S1, Normal S2, No murmurs, Gallops, Rubs Abdomen: Normal bowel sounds, Soft, No tenderness, No hepatospenomegaly Neuro: Cranial nerves 3-12 NL Psych/Mental Status: Mental status NL Medications Current Medications Medications Dose Ordered Sig/Clara Route Start Time Stop Time Status Last Admin Dose Admin Aspirin 81 mg DAILY PO 01/24/25 10:00 02/07/25 11:16 81 MG Atorvastatin Calcium 40 mg HS PO 01/23/25 22:00 02/06/25 22:15 40 MG Hydralazine HCl 10 mg Q6HP PRN IV 01/23/25 21:45 01/27/25 17:44 10 MG Ondansetron HCl 4 mg Q4HP PRN IV 01/23/25 21:45 Docusate Sodium 100 mg BIDPRN PRN PO 01/23/25 21:45 Acetaminophen 650 mg Q6HP PRN PO 01/23/25 21:45 Amlodipine Besylate 5 mg DAILY PO 01/24/25 10:00 02/07/25 11:23 5 MG Lorazepam 1 mg Q5MINP PRN IV 01/24/25 09:15 01/27/25 17:23 1 MG Ceftriaxone Sodium/Dextrose 50 ml @ 50 mls/hr Q12HR@ IV 01/24/25 21:00 02/07/25 11:14 50 MLS/HR Diagnostic Test (Pha) 1 strip Q6HR 01/26/25 18:00 02/07/25 05:25 1 STRIP Insulin Human Regular FOLLOW SLIDING SCALE Q6HR SC 01/26/25 18:00 02/07/25 05:58 2 UNITS Dextrose 50 ml UD IV 01/26/25 15:30 Pantoprazole Sodium 40 mg DAILY IV 01/27/25 10:00 02/06/25 09:32 40 MG Dexamethasone Sodium Phosphate 10 mg/Dextrose 51 ml @ 204 mls/hr Q6HR IV 01/28/25 00:00 02/07/25 05:25 204 MLS/HR Melatonin 5 mg HS PRN PO 01/28/25 00:30 02/06/25 22:15 5 MG Fat Emulsion Intravenous 150 ml/Sodium Chloride 40 meq/ Sodium Acetate 40 meq/Potassium Acetate 20 meq/ Magnesium Sulfate 12 meq/ Multivitamins 10 ml/Chromium/ Copper/Manganese/ Zinc 1 ml/Amino Acids/Dextrose/ Purified Water 2,204 ml @ 91 mls/hr [id number] IV 01/28/25 22:00 01/28/25 22:00 Cancel Lorazepam 1 mg ONCE PRN IV 01/28/25 15:30 Levetiracetam 1,500 mg BID PO 02/04/25 12:00 02/07/25 11:15 1,500 MG Laboratory Results Laboratory Tests 02/03/25 06:38 02/04/25 11:52 Urinalysis Test 01/23/25 21:44 Urine Color Colorless (Yellow) Urine Clarity Clear (Clear) Urine pH 7.5 (5.0-9.0) Urine Specific [place] 1.014 (1.001-1.035) Urine Protein Negative (Negative) Urine Ketones Negative (Negative) Urine Blood Negative /uL (Negative) Urine Nitrite Negative (Negative) Urine Bilirubin Negative (Negative) Urine Urobilinogen Normal mg/dL (Negative) Urine Leukocyte Esterase Negative /uL (Negative) Urine RBC 1 /hpf (0 - 3) Urine Microscopic WBC 1 /HPF (0-3) Urine Squamous Epithelial Cells Few /hpf (<5) Urine Bacteria Few /hpf (None Seen) H Urine Hyaline Casts Few /lpf (0 - 2) Urine Mucus Few (None Seen) Urine Glucose Normal mg/dL (Normal) Microbiology Microbiology Date/Time Source Procedure Growth Status 01/28/25 14:10 Cerebral Spinal Fluid Gram Stain - Final Complete 01/28/25 14:10 Cerebral Spinal Fluid CSF Culture & Gram Stain (Tube 2) M - Final Complete 01/23/25 16:40 Blood Blood Culture - Final NO GROWTH AFTER 5 DAYS OF INCUBATION. Complete Assessment/Plan Assessment/Plan 59-year-old male with a known history of epilepsy presented to the hospital with a seizures found to have 1. Breakthrough seizure 2. Epilepsy 3. Sepsis secondary to suspected meningitis 4. History of multiple CVAs 5. Leukocytosis secondary to steroids 6. Suspected meningitis although clinical suspicion was low on admission as per Infectious Disease, empirical treatment for two more weeks of p.o. antibiotics upon discharge -continue current seizure medications, [facility], continue current IV antibiotics switched to p.o. antibiotics as ordered. Continuing current management. I spoke with physical therapist in his recommendation is the patient should have more rehab in [facility]. Waiting for placement. This medical document was created using an electronic medical record system with M*M [employer] direct computerized dictation system. Although this document has been carefully reviewed, there may still be some phonetic and typographical errors. These areas are purely typographical due to imperfections of the software programs, and do not reflect any compromise in the patient's medical care. Plan discussed with: Patient, Other (Rn) Date of Service: Feb 07, 2025 Billing Provider: OUMAR JONES MD Common Visit Codes: [id number] INP/OBS CARE(HIGH) OUMAR JONES MD Feb 07, 2025 12:27
[2025-02-08] VITALS (8 sets, daily range): BP systolic 122–152; BP diastolic 54–70; PULSE 70–90; RESP 16–18; TEMP 97.1–98.5; O2SAT 95–99
--- NOTE | 2025-02-08 11:41 | DVHPN2 ---
Subjective The patient is seen and examined at bedside. The patient is working with physical therapy. Reviewed: Care Plan, H&P Changes from previous H/P or p: No Changes General: Per HPI Objective Vitals Vital Signs Date Time Temp Pulse Resp B/P (MAP) Pulse Ox O2 Delivery O2 Flow Rate FiO2 02/08/25 10:42 142/69 02/08/25 09:00 98.5 75 18 95 98.5 02/07/25 20:00 Room Air* 0 21 Intake/Output Intake and Output 02/08/25 07:00 Intake Total 2351 ml Output Total 3700 ml Balance -1349 ml Intake Oral 2200 ml IV Total 151 ml Output Urine Total 3700 ml General Appearance: Alert, Cooperative, No acute distress HEENT: Atraumatic, PERRLA, EOMI, Mucous membr. moist/pink Neck: Supple Lungs: Clear to auscultation, Normal air movement Cardiovascular: Regular rate, Normal S1, Normal S2, No murmurs, Gallops, Rubs Abdomen: Normal bowel sounds, Soft, No tenderness, No hepatospenomegaly Neuro: Cranial nerves 3-12 NL Psych/Mental Status: Mental status NL Medications Current Medications Medications Dose Ordered Sig/Clara Route Start Time Stop Time Status Last Admin Dose Admin Aspirin 81 mg DAILY PO 01/24/25 10:00 02/08/25 10:41 81 MG Atorvastatin Calcium 40 mg HS PO 01/23/25 22:00 02/07/25 21:31 40 MG Hydralazine HCl 10 mg Q6HP PRN IV 01/23/25 21:45 01/27/25 17:44 10 MG Ondansetron HCl 4 mg Q4HP PRN IV 01/23/25 21:45 Docusate Sodium 100 mg BIDPRN PRN PO 01/23/25 21:45 Acetaminophen 650 mg Q6HP PRN PO 01/23/25 21:45 Amlodipine Besylate 5 mg DAILY PO 01/24/25 10:00 02/08/25 10:42 5 MG Lorazepam 1 mg Q5MINP PRN IV 01/24/25 09:15 01/27/25 17:23 1 MG Ceftriaxone Sodium/Dextrose 50 ml @ 50 mls/hr Q12HR@ IV 01/24/25 21:00 02/08/25 10:40 50 MLS/HR Diagnostic Test (Pha) 1 strip Q6HR 01/26/25 18:00 02/08/25 06:00 1 STRIP Insulin Human Regular FOLLOW SLIDING SCALE Q6HR SC 01/26/25 18:00 02/08/25 00:32 2 UNITS Dextrose 50 ml UD IV 01/26/25 15:30 Pantoprazole Sodium 40 mg DAILY IV 01/27/25 10:00 02/08/25 10:41 40 MG Dexamethasone Sodium Phosphate 10 mg/Dextrose 51 ml @ 204 mls/hr Q6HR IV 01/28/25 00:00 02/08/25 06:38 204 MLS/HR Melatonin 5 mg HS PRN PO 01/28/25 00:30 02/07/25 21:39 5 MG Fat Emulsion Intravenous 150 ml/Sodium Chloride 40 meq/ Sodium Acetate 40 meq/Potassium Acetate 20 meq/ Magnesium Sulfate 12 meq/ Multivitamins 10 ml/Chromium/ Copper/Manganese/ Zinc 1 ml/Amino Acids/Dextrose/ Purified Water 2,204 ml @ 91 mls/hr [id number] IV 01/28/25 22:00 01/28/25 22:00 Cancel Lorazepam 1 mg ONCE PRN IV 01/28/25 15:30 Levetiracetam 1,500 mg BID PO 02/04/25 12:00 02/08/25 10:41 1,500 MG Laboratory Results Laboratory Tests 02/03/25 06:38 02/04/25 11:52 Urinalysis Test 01/23/25 21:44 Urine Color Colorless (Yellow) Urine Clarity Clear (Clear) Urine pH 7.5 (5.0-9.0) Urine Specific [place] 1.014 (1.001-1.035) Urine Protein Negative (Negative) Urine Ketones Negative (Negative) Urine Blood Negative /uL (Negative) Urine Nitrite Negative (Negative) Urine Bilirubin Negative (Negative) Urine Urobilinogen Normal mg/dL (Negative) Urine Leukocyte Esterase Negative /uL (Negative) Urine RBC 1 /hpf (0 - 3) Urine Microscopic WBC 1 /HPF (0-3) Urine Squamous Epithelial Cells Few /hpf (<5) Urine Bacteria Few /hpf (None Seen) H Urine Hyaline Casts Few /lpf (0 - 2) Urine Mucus Few (None Seen) Urine Glucose Normal mg/dL (Normal) Microbiology Microbiology Date/Time Source Procedure Growth Status 01/28/25 14:10 Cerebral Spinal Fluid Gram Stain - Final Complete 01/28/25 14:10 Cerebral Spinal Fluid CSF Culture & Gram Stain (Tube 2) M - Final Complete 01/23/25 16:40 Blood Blood Culture - Final NO GROWTH AFTER 5 DAYS OF INCUBATION. Complete Assessment/Plan Assessment/Plan 59-year-old male with a known history of epilepsy presented to the hospital with a seizures found to have 1. Breakthrough seizure 2. Epilepsy 3. Sepsis secondary to suspected meningitis 4. History of multiple CVAs 5. Leukocytosis secondary to steroids 6. Suspected meningitis although clinical suspicion was low on admission as per Infectious Disease, empirical treatment for two more weeks of p.o. antibiotics upon discharge -continue current seizure medications, discharge plan to [facility] facility, continue current IV antibiotics switched to p.o. antibiotics as ordered. Continuing current management. I spoke with physical therapist in his recommendation is the patient should have more rehab in [facility] facility. Waiting for placement. This medical document was created using an electronic medical record system with [employer] direct computerized dictation system. Although this document has been carefully reviewed, there may still be some phonetic and typographical errors. These areas are purely typographical due to imperfections of the software programs, and do not reflect any compromise in the patient's medical care. Plan discussed with: Patient Date of Service: Feb 08, 2025 Billing Provider: OUMAR JONES MD Common Visit Codes: [id number] INP/OBS CARE(HIGH) OUMAR JONES MD Feb 08, 2025 11:41
--- NOTE | 2025-02-08 20:06 | DVHPN2 ---
Consult Progress Note Date Seen: Jan 31, 2025 Subjective Patient reports: Feels better (mentation slowly improving, ) Objective vital signs Vital Sign Date Time Temp Pulse Resp B/P (MAP) Pulse Ox O2 Delivery O2 Flow Rate FiO2 02/08/25 17:00 97.1 73 17 152/54 (86) 96 97.1 02/08/25 08:00 Room Air* 0 21 Total Intake and Output 02/07/25 02/07/25 02/08/25 15:00 23:00 07:00 Intake Total 50 ml 1050 ml 1251 ml Output Total 2300 ml 1400 ml Balance 50 ml -1250 ml -149 ml medications Current Medications Medications Dose Ordered Sig/Clara Route Start Time Stop Time Status Last Admin Dose Admin Aspirin 81 mg DAILY PO 01/24/25 10:00 02/08/25 10:41 81 MG Atorvastatin Calcium 40 mg HS PO 01/23/25 22:00 02/07/25 21:31 40 MG Hydralazine HCl 10 mg Q6HP PRN IV 01/23/25 21:45 01/27/25 17:44 10 MG Ondansetron HCl 4 mg Q4HP PRN IV 01/23/25 21:45 Docusate Sodium 100 mg BIDPRN PRN PO 01/23/25 21:45 Acetaminophen 650 mg Q6HP PRN PO 01/23/25 21:45 Amlodipine Besylate 5 mg DAILY PO 01/24/25 10:00 02/08/25 10:42 5 MG Lorazepam 1 mg Q5MINP PRN IV 01/24/25 09:15 01/27/25 17:23 1 MG Ceftriaxone Sodium/Dextrose 50 ml @ 50 mls/hr Q12HR@ IV 01/24/25 21:00 02/08/25 10:40 50 MLS/HR Diagnostic Test (Pha) 1 strip Q6HR 01/26/25 18:00 02/08/25 17:24 1 STRIP Insulin Human Regular FOLLOW SLIDING SCALE Q6HR SC 01/26/25 18:00 02/08/25 17:24 4 UNITS Dextrose 50 ml UD IV 01/26/25 15:30 Pantoprazole Sodium 40 mg DAILY IV 01/27/25 10:00 02/08/25 10:41 40 MG Dexamethasone Sodium Phosphate 10 mg/Dextrose 51 ml @ 204 mls/hr Q6HR IV 01/28/25 00:00 02/08/25 18:05 204 MLS/HR Melatonin 5 mg HS PRN PO 01/28/25 00:30 02/07/25 21:39 5 MG Fat Emulsion Intravenous 150 ml/Sodium Chloride 40 meq/ Sodium Acetate 40 meq/Potassium Acetate 20 meq/ Magnesium Sulfate 12 meq/ Multivitamins 10 ml/Chromium/ Copper/Manganese/ Zinc 1 ml/Amino Acids/Dextrose/ Purified Water 2,204 ml @ 91 mls/hr [id number] IV 01/28/25 22:00 01/28/25 22:00 Cancel Lorazepam 1 mg ONCE PRN IV 01/28/25 15:30 Levetiracetam 1,500 mg BID PO 02/04/25 12:00 02/08/25 10:41 1,500 MG laboratory and microbiology Laboratory Tests 02/04/25 11:52 02/03/25 06:38 Test 02/03/25 06:38 Range/Units Serum Glucose 123 H 74-106 mg/dL Problem List/Assessment/Plan Problem List/Assessment/Plan Elia Li is a 59-year-old male patient who presents to the ER brought by EMS due to breakthrough seizures which lasted approximally 10 minutes. Obtained history of present illness and past medical history from son since patient was postictal. Per son patient was found on the ground with very intense and long- lasting seizures, more than usual, prompting his visit to the ER. Patient does complain of fevers for the past two years. Denies neck stiffness, photophobia, palpitation, syncope, chest pain, dyspnea, abdominal pain, nausea, vomiting, diarrhea, genital or oral ulcers, recent travel, sick contacts and other new motor or sensory deficits. 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 Surgical history: Denies Family history: Noncontributory Social history: Lives in [place] with son (he is the caregiver), normally he mobilizes with walker. Denies current tobacco, alcohol and other drug abuse (per son he used to smoke and quit 25 years ago, does not know pack-year history). Allergies: Valium Home medication: Aspirin 81 mg p.o. daily, atorvastatin 40 mg p.o. daily, levetiracetam a 1000 mg p.o. b.i.d., amlodipine 10 mg daily, Vimpat 50 mg daily. Patient seen and examined at bedside. Denies any meningeal symptoms, is alert and oriented in two spheres (not on time) this is his normal baseline, he communicates nodding and shaking head, he whispers all his answers. Has not presented seizure activity for the past 72 hours. Physical Exam Patient lying in bed, in no acute distress General: Lucid, afebrile, mucosae are moist. Tongue is swollen and has hematoma (from biting tongue) Cardiovascular: Normal S1 and S2. No murmurs, gallops or rubs Respiratory: Normal ventilation mechanics. Clear lung sounds on auscultation Abdomen: Soft, nontender, no organomegaly, normal bowel sounds MSK/skin: Mobilizes 4 limbs. Skin is dry and warm Neurological: Oriented in 2 spheres. Right-sided hemiplegia, no other motor no sensitive deficits. Pupils are isocoric and reactive. Brudzinski and Kernig sign are negative, no neck stiffness Assessment Sepsis probably secondary to meningitis/encephalitis/brain abscess Questionable Meningitis Rule out encephalitis and brain abscess Breakthrough seizures History of epilepsy History of multiple CVAs - currently wheelchair-bound Leukocytosis secondary to steroids Plan/Recommendation Completed lumbar puncture on 01/28/2025, with analysis of CSF which showed mildly elevated white blood cells after treatment with IV antibiotics for at least 48 hours, could be resolving meningitis. Pending rest of CSF analysis (HSV one and two, was Nile (not available in hospital), cytology, chemistry and culture). No IV steroids needed at this time since it has been more than 24 hours since administration of IV antibiotics. Have discussed with primary team to discontinue dexamethasone. 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 HIV and treponema negative We will hold on acyclovir until obtaining results of lumbar puncture analysis Appreciate input of Neurology specialist. Rest of management per primary team. Discharge planning with p.o. antibiotics (linezolid 600 mg p.o. b.i.d. and ciprofloxacin 500 mg p.o. b.i.d.) to complete a course of 21 days per guideline recommendations, since patient is clinically stable, have decided to complete course with p.o. antibiotics once discharged. Discussed plan with Dr. Aleman, patient, family and nurses: CSF analysis could be compatible with resolving meningitis, discontinued isolation for meningitis, MRI of head with and without contrast ruled out encephalitis/brain abscess, pending complementary workup. Recommend discontinuing IV steroids at this point, discussed with primary team. Recommended by guidelines to complete 21 days of treatment for non identified organism, since patient is clinically asymptomatic at this point we will opt to continue with p.o. medication (linezolid 600 mg p.o. b.i.d. and ciprofloxacin 500 mg p.o. b.i.d.). Patient will have to follow up with Dr. Aleman as outpatient after two weeks from discharge. EOT date is 02/24/25 I was present with the resident during the history and exam. I discussed the case with the resident and agree with the findings and plan as documented in the resident's note. - Bart Aleman Plan discussed with: Patient Dietary Evaluation Review Comments: 1) If NPO > 7 days, consider EN/TPN to meet at least 75% estimated daily needs 2) Initiate Pro-Stat @ 30 mL qd 3) Initiate vitamin C @ 500 mg bid and zinc sulfate @ 220 mg qd for 7-10 days 4) Advance to 2g Na diet when medically feasible, pending OPER[employer]ISK ANALYST approval 5) Follow-up with neurology Expected Outcomes/Goals: 1) patient to receive nutritional support within 7 days 2) labs and wound to improve 3) diet to advance 4) f/u in 2-3 days BART ALEMAN MD Feb 08, 2025 20:06
--- NOTE | 2025-02-08 20:11 | DVHPN2 ---
Consult Progress Note Date Seen: Feb 02, 2025 Subjective Patient reports: Feels better (no diarrhea or rash) Objective vital signs Vital Sign Date Time Temp Pulse Resp B/P (MAP) Pulse Ox O2 Delivery O2 Flow Rate FiO2 02/08/25 17:00 97.1 73 17 152/54 (86) 96 97.1 02/08/25 08:00 Room Air* 0 21 Total Intake and Output 02/07/25 02/07/25 02/08/25 15:00 23:00 07:00 Intake Total 50 ml 1050 ml 1251 ml Output Total 2300 ml 1400 ml Balance 50 ml -1250 ml -149 ml medications Current Medications Medications Dose Ordered Sig/Clara Route Start Time Stop Time Status Last Admin Dose Admin Aspirin 81 mg DAILY PO 01/24/25 10:00 02/08/25 10:41 81 MG Atorvastatin Calcium 40 mg HS PO 01/23/25 22:00 02/07/25 21:31 40 MG Hydralazine HCl 10 mg Q6HP PRN IV 01/23/25 21:45 01/27/25 17:44 10 MG Ondansetron HCl 4 mg Q4HP PRN IV 01/23/25 21:45 Docusate Sodium 100 mg BIDPRN PRN PO 01/23/25 21:45 Acetaminophen 650 mg Q6HP PRN PO 01/23/25 21:45 Amlodipine Besylate 5 mg DAILY PO 01/24/25 10:00 02/08/25 10:42 5 MG Lorazepam 1 mg Q5MINP PRN IV 01/24/25 09:15 01/27/25 17:23 1 MG Ceftriaxone Sodium/Dextrose 50 ml @ 50 mls/hr Q12HR@ IV 01/24/25 21:00 02/08/25 10:40 50 MLS/HR Diagnostic Test (Pha) 1 strip Q6HR 01/26/25 18:00 02/08/25 17:24 1 STRIP Insulin Human Regular FOLLOW SLIDING SCALE Q6HR SC 01/26/25 18:00 02/08/25 17:24 4 UNITS Dextrose 50 ml UD IV 01/26/25 15:30 Pantoprazole Sodium 40 mg DAILY IV 01/27/25 10:00 02/08/25 10:41 40 MG Dexamethasone Sodium Phosphate 10 mg/Dextrose 51 ml @ 204 mls/hr Q6HR IV 01/28/25 00:00 02/08/25 18:05 204 MLS/HR Melatonin 5 mg HS PRN PO 01/28/25 00:30 02/07/25 21:39 5 MG Fat Emulsion Intravenous 150 ml/Sodium Chloride 40 meq/ Sodium Acetate 40 meq/Potassium Acetate 20 meq/ Magnesium Sulfate 12 meq/ Multivitamins 10 ml/Chromium/ Copper/Manganese/ Zinc 1 ml/Amino Acids/Dextrose/ Purified Water 2,204 ml @ 91 mls/hr [id number] IV 01/28/25 22:00 01/28/25 22:00 Cancel Lorazepam 1 mg ONCE PRN IV 01/28/25 15:30 Levetiracetam 1,500 mg BID PO 02/04/25 12:00 02/08/25 10:41 1,500 MG laboratory and microbiology Laboratory Tests 02/04/25 11:52 02/03/25 06:38 Test 02/03/25 06:38 Range/Units Serum Glucose 123 H 74-106 mg/dL Problem List/Assessment/Plan Problems(with codes): (1) Sepsis (2) Breakthrough seizure (3) Generalized weakness (4) Sepsis, unspecified organism Problem List/Assessment/Plan Elia Li is a 59-year-old male patient who presents to the ER brought by EMS due to breakthrough seizures which lasted approximally 10 minutes. Obtained history of present illness and past medical history from son since patient was postictal. Per son patient was found on the ground with very intense and long- lasting seizures, more than usual, prompting his visit to the ER. Patient does complain of fevers for the past two years. Denies neck stiffness, photophobia, palpitation, syncope, chest pain, dyspnea, abdominal pain, nausea, vomiting, diarrhea, genital or oral ulcers, recent travel, sick contacts and other new motor or sensory deficits. 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 Surgical history: Denies Family history: Noncontributory Social history: Lives in [place] with son (he is the caregiver), normally he mobilizes with walker. Denies current tobacco, alcohol and other drug abuse (per son he used to smoke and quit 25 years ago, does not know pack-year history). Allergies: Valium Home medication: Aspirin 81 mg p.o. daily, atorvastatin 40 mg p.o. daily, levetiracetam a 1000 mg p.o. b.i.d., amlodipine 10 mg daily, Vimpat 50 mg daily. Patient seen and examined at bedside. Denies any meningeal symptoms, is alert and oriented in two spheres (not on time) this is his normal baseline, he communicates nodding and shaking head, he whispers all his answers. Has not presented seizure activity for the past 72 hours. Physical Exam Patient lying in bed, in no acute distress General: Lucid, afebrile, mucosae are moist. Tongue is swollen and has hematoma (from biting tongue) Cardiovascular: Normal S1 and S2. No murmurs, gallops or rubs Respiratory: Normal ventilation mechanics. Clear lung sounds on auscultation Abdomen: Soft, nontender, no organomegaly, normal bowel sounds MSK/skin: Mobilizes 4 limbs. Skin is dry and warm Neurological: Oriented in 2 spheres. Right-sided hemiplegia, no other motor no sensitive deficits. Pupils are isocoric and reactive. Brudzinski and Kernig sign are negative, no neck stiffness Assessment Sepsis probably secondary to meningitis/encephalitis/brain abscess Questionable Meningitis Rule out encephalitis and brain abscess Breakthrough seizures History of epilepsy History of multiple CVAs - currently wheelchair-bound Leukocytosis secondary to steroids Plan/Recommendation Completed lumbar puncture on 01/28/2025, with analysis of CSF which showed mildly elevated white blood cells after treatment with IV antibiotics for at least 48 hours, could be resolving meningitis. Pending rest of CSF analysis (HSV one and two, was Nile (not available in hospital), cytology, chemistry and culture). No IV steroids needed at this time since it has been more than 24 hours since administration of IV antibiotics. Have discussed with primary team to discontinue dexamethasone. 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 HIV and treponema negative We will hold on acyclovir until obtaining results of lumbar puncture analysis continue vancomycin and Ceftriaxone for now Appreciate input of Neurology specialist. Rest of management per primary team. Discharge planning with p.o. antibiotics (linezolid 600 mg p.o. b.i.d. and ciprofloxacin 500 mg p.o. b.i.d.) to complete a course of 21 days per guideline recommendations, since patient is clinically stable, have decided to complete course with p.o. antibiotics once discharged. Discussed plan with Dr. Aleman, patient, family and nurses: CSF analysis could be compatible with resolving meningitis, discontinued isolation for meningitis, MRI of head with and without contrast ruled out encephalitis/brain abscess, pending complementary workup. Recommend discontinuing IV steroids at this point, discussed with primary team. Recommended by guidelines to complete 21 days of treatment for non identified organism, since patient is clinically asymptomatic at this point we will opt to continue with p.o. medication (linezolid 600 mg p.o. b.i.d. and ciprofloxacin 500 mg p.o. b.i.d.). Patient will have to follow up with Dr. Aleman as outpatient after two weeks from discharge. EOT date is 02/24/25 I was present with the resident during the history and exam. I discussed the case with the resident and agree with the findings and plan as documented in the resident's note. - Bart Aleman Plan discussed with: Patient Dietary Evaluation Review Comments: 1) If NPO > 7 days, consider EN/TPN to meet at least 75% estimated daily needs 2) Initiate Pro-Stat @ 30 mL qd 3) Initiate vitamin C @ 500 mg bid and zinc sulfate @ 220 mg qd for 7-10 days 4) Advance to 2g Na diet when medically feasible, pending [employer] MARKETING PROFESSIONAL approval 5) Follow-up with neurology Expected Outcomes/Goals: 1) patient to receive nutritional support within 7 days 2) labs and wound to improve 3) diet to advance 4) f/u in 2-3 days BART ALEMAN MD Feb 08, 2025 20:11
[2025-02-08] MEDS ORDERED: VANCOMYCIN PER PHARMACY 0 MG IV SCH (20:15)
--- NOTE | 2025-02-08 20:16 | DVHPN2 ---
Consult Progress Note Date Seen: Feb 03, 2025 Subjective Patient reports: Feels better (alert and oriented, rising vancomycin trough) Objective vital signs Vital Sign Date Time Temp Pulse Resp B/P (MAP) Pulse Ox O2 Delivery O2 Flow Rate FiO2 02/08/25 17:00 97.1 73 17 152/54 (86) 96 97.1 02/08/25 08:00 Room Air* 0 21 Total Intake and Output 02/07/25 02/07/25 02/08/25 15:00 23:00 07:00 Intake Total 50 ml 1050 ml 1251 ml Output Total 2300 ml 1400 ml Balance 50 ml -1250 ml -149 ml medications Current Medications Medications Dose Ordered Sig/Clara Route Start Time Stop Time Status Last Admin Dose Admin Aspirin 81 mg DAILY PO 01/24/25 10:00 02/08/25 10:41 81 MG Atorvastatin Calcium 40 mg HS PO 01/23/25 22:00 02/07/25 21:31 40 MG Hydralazine HCl 10 mg Q6HP PRN IV 01/23/25 21:45 01/27/25 17:44 10 MG Ondansetron HCl 4 mg Q4HP PRN IV 01/23/25 21:45 Docusate Sodium 100 mg BIDPRN PRN PO 01/23/25 21:45 Acetaminophen 650 mg Q6HP PRN PO 01/23/25 21:45 Amlodipine Besylate 5 mg DAILY PO 01/24/25 10:00 02/08/25 10:42 5 MG Lorazepam 1 mg Q5MINP PRN IV 01/24/25 09:15 01/27/25 17:23 1 MG Ceftriaxone Sodium/Dextrose 50 ml @ 50 mls/hr Q12HR@ IV 01/24/25 21:00 02/08/25 10:40 50 MLS/HR Diagnostic Test (Pha) 1 strip Q6HR 01/26/25 18:00 02/08/25 17:24 1 STRIP Insulin Human Regular FOLLOW SLIDING SCALE Q6HR SC 01/26/25 18:00 02/08/25 17:24 4 UNITS Dextrose 50 ml UD IV 01/26/25 15:30 Pantoprazole Sodium 40 mg DAILY IV 01/27/25 10:00 02/08/25 10:41 40 MG Dexamethasone Sodium Phosphate 10 mg/Dextrose 51 ml @ 204 mls/hr Q6HR IV 4/1/25 00:00 02/08/25 18:05 204 MLS/HR Melatonin 5 mg HS PRN PO 01/28/25 00:30 02/07/25 21:39 5 MG Fat Emulsion Intravenous 150 ml/Sodium Chloride 40 meq/ Sodium Acetate 40 meq/Potassium Acetate 20 meq/ Magnesium Sulfate 12 meq/ Multivitamins 10 ml/Chromium/ Copper/Manganese/ Zinc 1 ml/Amino Acids/Dextrose/ Purified Water 2,204 ml @ 91 mls/hr [id number] IV 01/28/25 22:00 01/28/25 22:00 Cancel Lorazepam 1 mg ONCE PRN IV 01/28/25 15:30 Levetiracetam 1,500 mg BID PO 02/04/25 12:00 02/08/25 10:41 1,500 MG laboratory and microbiology Laboratory Tests 02/04/25 11:52 02/03/25 06:38 Test 02/03/25 06:38 Range/Units Serum Glucose 123 H 74-106 mg/dL Problem List/Assessment/Plan Problem List/Assessment/Plan Elia Li is a 59-year-old male patient who presents to the ER brought by EMS due to breakthrough seizures which lasted approximally 10 minutes. Obtained history of present illness and past medical history from son since patient was postictal. Per son patient was found on the ground with very intense and long- lasting seizures, more than usual, prompting his visit to the ER. Patient does complain of fevers for the past two years. Denies neck stiffness, photophobia, palpitation, syncope, chest pain, dyspnea, abdominal pain, nausea, vomiting, diarrhea, genital or oral ulcers, recent travel, sick contacts and other new motor or sensory deficits. 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 Surgical history: Denies Family history: Noncontributory Social history: Lives in [place] with son (he is the caregiver), normally he mobilizes with walker. Denies current tobacco, alcohol and other drug abuse (per son he used to smoke and quit 25 years ago, does not know pack-year history). Allergies: Valium Home medication: Aspirin 81 mg p.o. daily, atorvastatin 40 mg p.o. daily, levetiracetam a 1000 mg p.o. b.i.d., amlodipine 10 mg daily, Vimpat 50 mg daily. Patient seen and examined at bedside. Denies any meningeal symptoms, is alert and oriented in two spheres (not on time) this is his normal baseline, he communicates nodding and shaking head, he whispers all his answers. Has not presented seizure activity for the past 72 hours. Physical Exam Patient lying in bed, in no acute distress General: Lucid, afebrile, mucosae are moist. Tongue is swollen and has hematoma (from biting tongue) Cardiovascular: Normal S1 and S2. No murmurs, gallops or rubs Respiratory: Normal ventilation mechanics. Clear lung sounds on auscultation Abdomen: Soft, nontender, no organomegaly, normal bowel sounds MSK/skin: Mobilizes 4 limbs. Skin is dry and warm Neurological: Oriented in 2 spheres. Right-sided hemiplegia, no other motor no sensitive deficits. Pupils are isocoric and reactive. Brudzinski and Kernig sign are negative, no neck stiffness Assessment Sepsis probably secondary to meningitis/encephalitis/brain abscess Questionable Meningitis Rule out encephalitis and brain abscess Breakthrough seizures History of epilepsy History of multiple CVAs - currently wheelchair-bound Leukocytosis secondary to steroids vancomycin trough elevated -vancomycin held. Plan/Recommendation Completed lumbar puncture on 01/28/2025, with analysis of CSF which showed mildly elevated white blood cells after treatment with IV antibiotics for at least 48 hours, could be resolving meningitis. Pending rest of CSF analysis (HSV one and two, was Nile (not available in hospital), cytology, chemistry and culture). No IV steroids needed at this time since it has been more than 24 hours since administration of IV antibiotics. Have discussed with primary team to discontinue dexamethasone. 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 HIV and treponema negative We will hold on acyclovir until obtaining results of lumbar puncture analysis continue vancomycin and Ceftriaxone for now Appreciate input of Neurology specialist. Rest of management per primary team. Discharge planning with p.o. antibiotics (linezolid 600 mg p.o. b.i.d. and ciprofloxacin 500 mg p.o. b.i.d.) to complete a course of 21 days per guideline recommendations, since patient is clinically stable, have decided to complete course with p.o. antibiotics once discharged. Discussed plan with Dr. Aleman, patient, family and nurses: CSF analysis could be compatible with resolving meningitis, discontinued isolation for meningitis, MRI of head with and without contrast ruled out encephalitis/brain abscess, pending complementary workup. Recommend discontinuing IV steroids at this point, discussed with primary team. Recommended by guidelines to complete 21 days of treatment for non identified organism, since patient is clinically asymptomatic at this point we will opt to continue with p.o. medication (linezolid 600 mg p.o. b.i.d. and ciprofloxacin 500 mg p.o. b.i.d.). Patient will have to follow up with Dr. Aleman as outpatient after two weeks from discharge. EOT date is 02/24/25 I was present with the resident during the history and exam. I discussed the case with the resident and agree with the findings and plan as documented in the resident's note. - Bart Aleman Plan discussed with: Patient Dietary Evaluation Review Comments: 1) If NPO > 7 days, consider EN/TPN to meet at least 75% estimated daily needs 2) Initiate Pro-Stat @ 30 mL qd 3) Initiate vitamin C @ 500 mg bid and zinc sulfate @ 220 mg qd for 7-10 days 4) Advance to 2g Na diet when medically feasible, pending [employer]AND[employer] DIP[employer] approval 5) Follow-up with neurology Expected Outcomes/Goals: 1) patient to receive nutritional support within 7 days 2) labs and wound to improve 3) diet to advance 4) f/u in 2-3 days BART ALEMAN MD Feb 08, 2025 20:16
--- NOTE | 2025-02-08 20:18 | DVHPN2 ---
Consult Progress Note Date Seen: Feb 05, 2025 Subjective Patient reports: Feels better (working with physical therapy, difficult mobility and trasfer OOb) Objective vital signs Vital Sign Date Time Temp Pulse Resp B/P (MAP) Pulse Ox O2 Delivery O2 Flow Rate FiO2 02/08/25 17:00 97.1 73 17 152/54 (86) 96 97.1 02/08/25 08:00 Room Air* 0 21 Total Intake and Output 02/07/25 02/07/25 02/08/25 15:00 23:00 07:00 Intake Total 50 ml 1050 ml 1251 ml Output Total 2300 ml 1400 ml Balance 50 ml -1250 ml -149 ml medications Current Medications Medications Dose Ordered Sig/Clara Route Start Time Stop Time Status Last Admin Dose Admin Aspirin 81 mg DAILY PO 01/24/25 10:00 02/08/25 10:41 81 MG Atorvastatin Calcium 40 mg HS PO 01/23/25 22:00 02/07/25 21:31 40 MG Hydralazine HCl 10 mg Q6HP PRN IV 01/23/25 21:45 01/27/25 17:44 10 MG Ondansetron HCl 4 mg Q4HP PRN IV 01/23/25 21:45 Docusate Sodium 100 mg BIDPRN PRN PO 01/23/25 21:45 Acetaminophen 650 mg Q6HP PRN PO 01/23/25 21:45 Amlodipine Besylate 5 mg DAILY PO 01/24/25 10:00 02/08/25 10:42 5 MG Lorazepam 1 mg Q5MINP PRN IV 01/24/25 09:15 01/27/25 17:23 1 MG Ceftriaxone Sodium/Dextrose 50 ml @ 50 mls/hr Q12HR@21 IV 01/24/25 21:00 02/08/25 10:40 50 MLS/HR Diagnostic Test (Pha) 1 strip Q6HR 01/26/25 18:00 02/08/25 17:24 1 STRIP Insulin Human Regular FOLLOW SLIDING SCALE Q6HR SC 01/26/25 18:00 02/08/25 17:24 4 UNITS Dextrose 50 ml UD IV 01/26/25 15:30 Pantoprazole Sodium 40 mg DAILY IV 01/27/25 10:00 02/08/25 10:41 40 MG Dexamethasone Sodium Phosphate 10 mg/Dextrose 51 ml @ 204 mls/hr Q6HR IV 01/28/25 00:00 02/08/25 18:05 204 MLS/HR Melatonin 5 mg HS PRN PO 01/28/25 00:30 02/07/25 21:39 5 MG Fat Emulsion Intravenous 150 ml/Sodium Chloride 40 meq/ Sodium Acetate 40 meq/Potassium Acetate 20 meq/ Magnesium Sulfate 12 meq/ Multivitamins 10 ml/Chromium/ Copper/Manganese/ Zinc 1 ml/Amino Acids/Dextrose/ Purified Water 2,204 ml @ 91 mls/hr [id number] IV 01/28/25 22:00 01/28/25 22:00 Cancel Lorazepam 1 mg ONCE PRN IV 01/28/25 15:30 Levetiracetam 1,500 mg BID PO 02/04/25 12:00 02/08/25 10:41 1,500 MG laboratory and microbiology Laboratory Tests 02/04/25 11:52 02/03/25 06:38 Test 02/03/25 06:38 Range/Units Serum Glucose 123 H 74-106 mg/dL Problem List/Assessment/Plan Problems(with codes): (1) Sepsis (2) Breakthrough seizure (3) Generalized weakness (4) Sepsis, unspecified organism Problem List/Assessment/Plan Elia Li is a 59-year-old male patient who presents to the ER brought by EMS due to breakthrough seizures which lasted approximally 10 minutes. Obtained history of present illness and past medical history from son since patient was postictal. Per son patient was found on the ground with very intense and long- lasting seizures, more than usual, prompting his visit to the ER. Patient does complain of fevers for the past two years. Denies neck stiffness, photophobia, palpitation, syncope, chest pain, dyspnea, abdominal pain, nausea, vomiting, diarrhea, genital or oral ulcers, recent travel, sick contacts and other new motor or sensory deficits. 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 Surgical history: Denies Family history: Noncontributory Social history: Lives in [place] with son (he is the caregiver), normally he mobilizes with walker. Denies current tobacco, alcohol and other drug abuse (per son he used to smoke and quit 25 years ago, does not know pack-year history). Allergies: Valium Home medication: Aspirin 81 mg p.o. daily, atorvastatin 40 mg p.o. daily, levetiracetam a 1000 mg p.o. b.i.d., amlodipine 10 mg daily, Vimpat 50 mg daily. Patient seen and examined at bedside. Denies any meningeal symptoms, is alert and oriented in two spheres (not on time) this is his normal baseline, he communicates nodding and shaking head, he whispers all his answers. Has not presented seizure activity for the past 72 hours. Physical Exam Patient lying in bed, in no acute distress General: Lucid, afebrile, mucosae are moist. Tongue is swollen and has hematoma (from biting tongue) Cardiovascular: Normal S1 and S2. No murmurs, gallops or rubs Respiratory: Normal ventilation mechanics. Clear lung sounds on auscultation Abdomen: Soft, nontender, no organomegaly, normal bowel sounds MSK/skin: Mobilizes 4 limbs. Skin is dry and warm Neurological: Oriented in 2 spheres. Right-sided hemiplegia, no other motor no sensitive deficits. Pupils are isocoric and reactive. Brudzinski and Kernig sign are negative, no neck stiffness Assessment Sepsis probably secondary to meningitis/encephalitis/brain abscess Questionable Meningitis Rule out encephalitis and brain abscess Breakthrough seizures History of epilepsy History of multiple CVAs - currently wheelchair-bound Leukocytosis secondary to steroids vancomycin trough elevated -vancomycin held. improved mentation, rising leukocytosis Plan/Recommendation Completed lumbar puncture on 01/28/2025, with analysis of CSF which showed mildly elevated white blood cells after treatment with IV antibiotics for at least 48 hours, could be resolving meningitis. Pending rest of CSF analysis (HSV one and two, was Nile (not available in hospital), cytology, chemistry and culture). No IV steroids needed at this time since it has been more than 24 hours since administration of IV antibiotics. Have discussed with primary team to discontinue dexamethasone. 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 HIV and treponema negative We will hold on acyclovir until obtaining results of lumbar puncture analysis continue vancomycin and Ceftriaxone for now Appreciate input of Neurology specialist. Rest of management per primary team. Discharge planning with p.o. antibiotics (linezolid 600 mg p.o. b.i.d. and ciprofloxacin 500 mg p.o. b.i.d.) to complete a course of 21 days per guideline recommendations, since patient is clinically stable, have decided to complete course with p.o. antibiotics once discharged. Discussed plan with Dr. Aleman, patient, family and nurses: CSF analysis could be compatible with resolving meningitis, discontinued isolation for meningitis, MRI of head with and without contrast ruled out encephalitis/brain abscess, pending complementary workup. Recommend discontinuing IV steroids at this point, discussed with primary team. Recommended by guidelines to complete 21 days of treatment for non identified organism, since patient is clinically asymptomatic at this point we will opt to continue with p.o. medication (linezolid 600 mg p.o. b.i.d. and ciprofloxacin 500 mg p.o. b.i.d.). Patient will have to follow up with Dr. Aleman as outpatient after two weeks from discharge. EOT date is 02/24/25 I was present with the resident during the history and exam. I discussed the case with the resident and agree with the findings and plan as documented in the resident's note. - Bart Aleman Plan discussed with: Patient Dietary Evaluation Review Comments: 1) If NPO > 7 days, consider EN/TPN to meet at least 75% estimated daily needs 2) Initiate Pro-Stat @ 30 mL qd 3) Initiate vitamin C @ 500 mg bid and zinc sulfate @ 220 mg qd for 7-10 days 4) Advance to 2g Na diet when medically feasible, pending [employer] SUPERVIS[employer] approval 5) Follow-up with neurology Expected Outcomes/Goals: 1) patient to receive nutritional support within 7 days 2) labs and wound to improve 3) diet to advance 4) f/u in 2-3 days BART ALEMAN MD Feb 08, 2025 20:18
[2025-02-08] MEDS: VANCOMYCIN 1 GM/200 ML IV ONE (21:19)
--- NOTE | 2025-02-08 21:28 | DVHPN2 ---
Consult Progress Note Date Seen: Feb 08, 2025 Subjective Patient reports: Other (continues to have brief episodes of confusion , most of the time patient is lucide , alert and aware . answeres questions ) Objective vital signs Vital Sign Date Time Temp Pulse Resp B/P (MAP) Pulse Ox O2 Delivery O2 Flow Rate FiO2 02/08/25 21:00 97.9 83 16 125/65 (85) 95 97.9 02/08/25 08:00 Room Air* 0 21 Total Intake and Output 02/07/25 02/07/25 02/08/25 15:00 23:00 07:00 Intake Total 50 ml 1050 ml 1251 ml Output Total 2300 ml 1400 ml Balance 50 ml -1250 ml -149 ml medications Current Medications Medications Dose Ordered Sig/Clara Route Start Time Stop Time Status Last Admin Dose Admin Aspirin 81 mg DAILY PO 01/24/25 10:00 02/08/25 10:41 81 MG Atorvastatin Calcium 40 mg HS PO 01/23/25 22:00 02/07/25 21:31 40 MG Hydralazine HCl 10 mg Q6HP PRN IV 01/23/25 21:45 01/27/25 17:44 10 MG Ondansetron HCl 4 mg Q4HP PRN IV 01/23/25 21:45 Docusate Sodium 100 mg BIDPRN PRN PO 01/23/25 21:45 Acetaminophen 650 mg Q6HP PRN PO 01/23/25 21:45 Amlodipine Besylate 5 mg DAILY PO 01/24/25 10:00 02/08/25 10:42 5 MG Lorazepam 1 mg Q5MINP PRN IV 01/24/25 09:15 01/27/25 17:23 1 MG Ceftriaxone Sodium/Dextrose 50 ml @ 50 mls/hr Q12HR@ IV 01/24/25 21:00 02/08/25 10:40 50 MLS/HR Diagnostic Test (Pha) 1 strip Q6HR 01/26/25 18:00 02/08/25 17:24 1 STRIP Insulin Human Regular FOLLOW SLIDING SCALE Q6HR SC 01/26/25 18:00 02/08/25 17:24 4 UNITS Dextrose 50 ml UD IV 01/26/25 15:30 Pantoprazole Sodium 40 mg DAILY IV 01/27/25 10:00 02/08/25 10:41 40 MG Melatonin 5 mg HS PRN PO 01/28/25 00:30 02/07/25 21:39 5 MG Fat Emulsion Intravenous 150 ml/Sodium Chloride 40 meq/ Sodium Acetate 40 meq/Potassium Acetate 20 meq/ Magnesium Sulfate 12 meq/ Multivitamins 10 ml/Chromium/ Copper/Manganese/ Zinc 1 ml/Amino Acids/Dextrose/ Purified Water 2,204 ml @ 91 mls/hr [id number] IV 01/28/25 22:00 01/28/25 22:00 Cancel Lorazepam 1 mg ONCE PRN IV 01/28/25 15:30 Levetiracetam 1,500 mg BID PO 02/04/25 12:00 02/08/25 10:41 1,500 MG Vancomycin HCl 0 ml @ 0 mls/hr UD IV 02/08/25 20:15 UNV laboratory and microbiology Laboratory Tests 02/04/25 11:52 02/03/25 06:38 Test 02/03/25 06:38 Range/Units Serum Glucose 123 H 74-106 mg/dL Problem List/Assessment/Plan Problems(with codes): (1) Sepsis (2) Breakthrough seizure (3) Generalized weakness (4) Sepsis, unspecified organism Problem List/Assessment/Plan Elia Li is a 59-year-old male patient who presents to the ER brought by EMS due to breakthrough seizures which lasted approximally 10 minutes. Obtained history of present illness and past medical history from son since patient was postictal. Per son patient was found on the ground with very intense and long- lasting seizures, more than usual, prompting his visit to the ER. Patient does complain of fevers for the past two years. Denies neck stiffness, photophobia, palpitation, syncope, chest pain, dyspnea, abdominal pain, nausea, vomiting, diarrhea, genital or oral ulcers, recent travel, sick contacts and other new motor or sensory deficits. 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 Surgical history: Denies Family history: Noncontributory Social history: Lives in [place] with son (he is the caregiver), normally he mobilizes with walker. Denies current tobacco, alcohol and other drug abuse (per son he used to smoke and quit 25 years ago, does not know pack-year history). Allergies: Valium Home medication: Aspirin 81 mg p.o. daily, atorvastatin 40 mg p.o. daily, levetiracetam a 1000 mg p.o. b.i.d., amlodipine 10 mg daily, Vimpat 50 mg daily. Patient seen and examined at bedside. Denies any meningeal symptoms, is alert and oriented in two spheres (not on time) this is his normal baseline, he communicates nodding and shaking head, he whispers all his answers. Has not presented seizure activity for the past 72 hours. Physical Exam Patient lying in bed, in no acute distress General: Lucid, afebrile, mucosae are moist. Tongue is swollen and has hematoma (from biting tongue) Cardiovascular: Normal S1 and S2. No murmurs, gallops or rubs Respiratory: Normal ventilation mechanics. Clear lung sounds on auscultation Abdomen: Soft, nontender, no organomegaly, normal bowel sounds MSK/skin: Mobilizes 4 limbs. Skin is dry and warm Neurological: Oriented in 2 spheres. Right-sided hemiplegia, no other motor no sensitive deficits. Pupils are isocoric and reactive. Brudzinski and Kernig sign are negative, no neck stiffness Assessment Sepsis probably secondary to meningitis/encephalitis/brain abscess Questionable Meningitis Rule out encephalitis and brain abscess Breakthrough seizures History of epilepsy History of multiple CVAs - currently wheelchair-bound Leukocytosis secondary to steroids vancomycin trough elevated -vancomycin held. improved mentation, rising leukocytosis 02/08: likely leukocytosis is related to steroid use which is not needed at this time Plan/Recommendation - recommend stopping all steroid use as is not needed at this time and likely contributing to leukocytosis Completed lumbar puncture on 01/28/2025, with analysis of CSF which showed mildly elevated white blood cells after treatment with IV antibiotics for at least 48 hours, could be resolving meningitis. Pending rest of CSF analysis (HSV one and two, was Nile (not available in hospital), cytology, chemistry and culture). No IV steroids needed at this time since it has been more than 24 hours since administration of IV antibiotics. Have discussed with primary team to discontinue dexamethasone. 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 HIV and treponema negative We will hold on acyclovir until obtaining results of lumbar puncture analysis continue vancomycin and Ceftriaxone for now Appreciate input of Neurology specialist. Rest of management per primary team. Discharge planning with p.o. antibiotics (linezolid 600 mg p.o. b.i.d. and ciprofloxacin 500 mg p.o. b.i.d.) to complete a course of 21 days per guideline recommendations, since patient is clinically stable, have decided to complete course with p.o. antibiotics once discharged. Discussed plan with Dr. Aleman, patient, family and nurses: CSF analysis could be compatible with resolving meningitis, discontinued isolation for meningitis, MRI of head with and without contrast ruled out encephalitis/brain abscess, pending complementary workup. Recommend discontinuing IV steroids at this point, discussed with primary team. Recommended by guidelines to complete 21 days of treatment for non identified organism, since patient is clinically asymptomatic at this point we will opt to continue with p.o. medication (linezolid 600 mg p.o. b.i.d. and ciprofloxacin 500 mg p.o. b.i.d.). Patient will have to follow up with Dr. Aleman as outpatient after two weeks from discharge. EOT date is 02/24/25 I was present with the resident during the history and exam. I discussed the case with the resident and agree with the findings and plan as documented in the resident's note. - Bart Aleman Plan discussed with: Other Dietary Evaluation Review Comments: 1) If NPO > 7 days, consider EN/TPN to meet at least 75% estimated daily needs 2) Initiate Pro-Stat @ 30 mL qd 3) Initiate vitamin C @ 500 mg bid and zinc sulfate @ 220 mg qd for 7-10 days 4) Advance to 2g Na diet when medically feasible, pending [employer] TECHNICIAN approval 5) Follow-up with neurology Expected Outcomes/Goals: 1) patient to receive nutritional support within 7 days 2) labs and wound to improve 3) diet to advance 4) f/u in 2-3 days BART ALEMAN MD Feb 08, 2025 21:28
[2025-02-08] MEDS: VANCOMYCIN 1.5GM/250ML 250 ML IV ONE (22:52)
[2025-02-09] VITALS (8 sets, daily range): BP systolic 107–133; BP diastolic 55–82; PULSE 60–91; RESP 14–18; TEMP 97.6–98.5; O2SAT 96–99
[2025-02-09] MEDS: ACETAMINOPHEN 325 MG TAB PO PRN (03:11)
[2025-02-09] MEDS: VANCOMYCIN 1GM/200ML PM 200 ML IV SCH (11:12)
--- NOTE | 2025-02-09 11:46 | DVHPN2 ---
Subjective The patient is seen and examined at bedside. The patient is working with physical therapy. Reviewed: Care Plan, H&P Changes from previous H/P or p: No Changes General: Per HPI Objective Vitals Vital Signs Date Time Temp Pulse Resp B/P (MAP) Pulse Ox O2 Delivery O2 Flow Rate FiO2 02/09/25 11:01 118/58 02/09/25 09:00 97.7 70 16 97 97.7 02/08/25 20:00 Room Air* 0 21 Intake/Output Intake and Output 02/09/25 07:00 Intake Total 2202 ml Output Total 4750 ml Balance -2548 ml Intake Oral 2000 ml IV Total 202 ml Output Urine Total 4750 ml General Appearance: Alert, Cooperative, No acute distress HEENT: Atraumatic, PERRLA, EOMI, Mucous membr. moist/pink Neck: Supple Lungs: Clear to auscultation, Normal air movement Cardiovascular: Regular rate, Normal S1, Normal S2, No murmurs, Gallops, Rubs Abdomen: Normal bowel sounds, Soft, No tenderness, No hepatospenomegaly Neuro: Cranial nerves 3-12 NL Psych/Mental Status: Mental status NL Medications Current Medications Medications Dose Ordered Sig/Clara Route Start Time Stop Time Status Last Admin Dose Admin Aspirin 81 mg DAILY PO 01/24/25 10:00 02/09/25 11:00 81 MG Atorvastatin Calcium 40 mg HS PO 01/23/25 22:00 02/08/25 21:25 40 MG Hydralazine HCl 10 mg Q6HP PRN IV 01/23/25 21:45 01/27/25 17:44 10 MG Ondansetron HCl 4 mg Q4HP PRN IV 01/23/25 21:45 Docusate Sodium 100 mg BIDPRN PRN PO 01/23/25 21:45 Acetaminophen 650 mg Q6HP PRN PO 01/23/25 21:45 02/09/25 03:11 650 MG Amlodipine Besylate 5 mg DAILY PO 01/24/25 10:00 02/09/25 11:01 5 MG Lorazepam 1 mg Q5MINP PRN IV 01/24/25 09:15 01/27/25 17:23 1 MG Diagnostic Test (Pha) 1 strip Q6HR 01/26/25 18:00 02/09/25 06:02 1 STRIP Insulin Human Regular FOLLOW SLIDING SCALE Q6HR SC 01/26/25 18:00 02/09/25 06:02 2 UNITS Dextrose 50 ml UD IV 01/26/25 15:30 Pantoprazole Sodium 40 mg DAILY IV 01/27/25 10:00 02/09/25 11:01 40 MG Melatonin 5 mg HS PRN PO 01/28/25 00:30 02/07/25 21:39 5 MG Fat Emulsion Intravenous 150 ml/Sodium Chloride 40 meq/ Sodium Acetate 40 meq/Potassium Acetate 20 meq/ Magnesium Sulfate 12 meq/ Multivitamins 10 ml/Chromium/ Copper/Manganese/ Zinc 1 ml/Amino Acids/Dextrose/ Purified Water 2,204 ml @ 91 mls/hr [id number] IV 01/28/25 22:00 01/28/25 22:00 Cancel Lorazepam 1 mg ONCE PRN IV 01/28/25 15:30 Levetiracetam 1,500 mg BID PO 02/04/25 12:00 02/09/25 10:59 1,500 MG Vancomycin HCl 0 ml @ 0 mls/hr UD IV 02/08/25 20:15 Vancomycin HCl 200 ml @ 160 mls/hr Q12H IV 02/09/25 11:00 02/09/25 11:12 160 MLS/HR Laboratory Results Laboratory Tests 02/03/25 06:38 02/04/25 11:52 Urinalysis Test 01/23/25 21:44 Urine Color Colorless (Yellow) Urine Clarity Clear (Clear) Urine pH 7.5 (5.0-9.0) Urine Specific [place] 1.014 (1.001-1.035) Urine Protein Negative (Negative) Urine Ketones Negative (Negative) Urine Blood Negative /uL (Negative) Urine Nitrite Negative (Negative) Urine Bilirubin Negative (Negative) Urine Urobilinogen Normal mg/dL (Negative) Urine Leukocyte Esterase Negative /uL (Negative) Urine RBC 1 /hpf (0 - 3) Urine Microscopic WBC 1 /HPF (0-3) Urine Squamous Epithelial Cells Few /hpf (<5) Urine Bacteria Few /hpf (None Seen) H Urine Hyaline Casts Few /lpf (0 - 2) Urine Mucus Few (None Seen) Urine Glucose Normal mg/dL (Normal) Microbiology Microbiology Date/Time Source Procedure Growth Status 01/28/25 14:10 Cerebral Spinal Fluid Gram Stain - Final Complete 01/28/25 14:10 Cerebral Spinal Fluid CSF Culture & Gram Stain (Tube 2) M - Final Complete 01/23/25 16:40 Blood Blood Culture - Final NO GROWTH AFTER 5 DAYS OF INCUBATION. Complete Assessment/Plan Assessment/Plan 59-year-old male with a known history of epilepsy presented to the hospital with a seizures found to have 1. Breakthrough seizure 2. Epilepsy 3. Sepsis secondary to suspected meningitis 4. History of multiple CVAs 5. Leukocytosis secondary to steroids 6. Suspected meningitis although clinical suspicion was low on admission as per Infectious Disease, empirical treatment for two more weeks of p.o. antibiotics upon discharge -continue current seizure medications, discharge plan to detention facility, continue current IV antibiotics switched to p.o. antibiotics as ordered. Continuing current management. I spoke with physical therapist in his recommendation is the patient should have more rehab in detention home facility. Waiting for placement. This medical document was created using an electronic medical record system with [employer] direct computerized dictation system. Although this document has been carefully reviewed, there may still be some phonetic and typographical errors. These areas are purely typographical due to imperfections of the software programs, and do not reflect any compromise in the patient's medical care. Plan discussed with: Other (RN) Date of Service: Feb 09, 2025 Billing Provider: OUMAR JONES MD Common Visit Codes: [id number] INP/OBS CARE(HIGH) OUMAR JONES MD Feb 09, 2025 11:46
[2025-02-10] VITALS (7 sets, daily range): BP systolic 104–128; BP diastolic 55–73; PULSE 64–94; RESP 16–18; TEMP 97.6–98.2; O2SAT 97–100
[2025-02-10 10:50] LABS: Hematocrit 43.2 % (41.0-53.0); Hemoglobin 14.6 g/dL (13.5-17.5); Mean Corpuscular Hemoglobin 31.6 pg (28.0-32.0); Mean Corpuscular Hgb Conc. 33.9 g/dL (32.0-36.0); Mean Corpuscular Volume 93.3 fL (80.0-100.0); Platelet Count (auto) 259 10^3/uL (140-450); Red Blood Cells 4.62 10^6/uL (4.5-5.90); Red Cell Distribution Width 14.4 % (11.8-14.3); White Blood Cell 20.5 10^3/uL (4.4-10.8)
[2025-02-10 11:01] LABS: Band Neutrophils % (manual) 0; Basophils % (manual) 0 (0.0-2.0); Blast Cells 0; Eosinophils % (manual) 0 (0-7); Metamyelocytes % 0; Myelocytes % 0; Promyelocytes % 0; Reactive Lymphocytes 0
[2025-02-10 11:26] LABS: Hypersegmented Neutrophils Present; Lymphocytes % (manual) 6 (10.0-50.0); Monocytes % (manual) 2 (0-12)
[2025-02-10 11:27] LABS: Platelet Estimate Adequate
--- NOTE | 2025-02-10 11:35 | DVHPN2 ---
Reviewed: Care Plan, H&P Changes from previous H/P or p: No Changes General: Per HPI Objective Vitals Vital Signs Date Time Temp Pulse Resp B/P (MAP) Pulse Ox O2 Delivery O2 Flow Rate FiO2 02/10/25 09:56 120/66 02/10/25 08:00 73 16 97 Room Air* 0 21 02/10/25 05:00 98.0 98.0 Intake/Output Intake and Output 02/10/25 07:00 Intake Total 2380 ml Output Total 2850 ml Balance -470 ml Intake Oral 1980 ml IV Total 400 ml Output Urine Total 2850 ml General Appearance: Alert, Cooperative, No acute distress HEENT: Atraumatic, PERRLA, EOMI, Mucous membr. moist/pink Neck: Supple Lungs: Clear to auscultation, Normal air movement Cardiovascular: Regular rate, Normal S1, Normal S2, No murmurs, Gallops, Rubs Abdomen: Normal bowel sounds, Soft, No tenderness, No hepatospenomegaly Neuro: Cranial nerves 3-12 NL Psych/Mental Status: Mental status NL Medications Current Medications Medications Dose Ordered Sig/Clara Route Start Time Stop Time Status Last Admin Dose Admin Aspirin 81 mg DAILY PO 01/24/25 10:00 02/10/25 09:55 81 MG Atorvastatin Calcium 40 mg HS PO 01/23/25 22:00 02/09/25 22:06 40 MG Hydralazine HCl 10 mg Q6HP PRN IV 01/23/25 21:45 01/27/25 17:44 10 MG Ondansetron HCl 4 mg Q4HP PRN IV 01/23/25 21:45 Docusate Sodium 100 mg BIDPRN PRN PO 01/23/25 21:45 Acetaminophen 650 mg Q6HP PRN PO 01/23/25 21:45 02/09/25 03:11 650 MG Amlodipine Besylate 5 mg DAILY PO 01/24/25 10:00 02/10/25 09:56 5 MG Lorazepam 1 mg Q5MINP PRN IV 01/24/25 09:15 01/27/25 17:23 1 MG Diagnostic Test (Pha) 1 strip Q6HR 01/26/25 18:00 02/10/25 05:43 1 STRIP Insulin Human Regular FOLLOW SLIDING SCALE Q6HR SC 01/26/25 18:00 02/09/25 12:00 2 UNITS Dextrose 50 ml UD IV 01/26/25 15:30 Pantoprazole Sodium 40 mg DAILY IV 01/27/25 10:00 02/10/25 09:55 40 MG Melatonin 5 mg HS PRN PO 01/28/25 00:30 02/07/25 21:39 5 MG Fat Emulsion Intravenous 150 ml/Sodium Chloride 40 meq/ Sodium Acetate 40 meq/Potassium Acetate 20 meq/ Magnesium Sulfate 12 meq/ Multivitamins 10 ml/Chromium/ Copper/Manganese/ Zinc 1 ml/Amino Acids/Dextrose/ Purified Water 2,204 ml @ 91 mls/hr [id number] IV 01/28/25 22:00 01/28/25 22:00 Cancel Lorazepam 1 mg ONCE PRN IV 01/28/25 15:30 Levetiracetam 1,500 mg BID PO 02/04/25 12:00 02/10/25 09:55 1,500 MG Vancomycin HCl 0 ml @ 0 mls/hr UD IV 02/08/25 20:15 Vancomycin HCl 200 ml @ 160 mls/hr Q12H IV 02/09/25 11:00 02/09/25 22:12 160 MLS/HR Laboratory Results Laboratory Tests 02/03/25 06:38 02/10/25 10:33 Urinalysis Test 01/23/25 21:44 Urine Color Colorless (Yellow) Urine Clarity Clear (Clear) Urine pH 7.5 (5.0-9.0) Urine Specific [place] 1.014 (1.001-1.035) Urine Protein Negative (Negative) Urine Ketones Negative (Negative) Urine Blood Negative /uL (Negative) Urine Nitrite Negative (Negative) Urine Bilirubin Negative (Negative) Urine Urobilinogen Normal mg/dL (Negative) Urine Leukocyte Esterase Negative /uL (Negative) Urine RBC 1 /hpf (0 - 3) Urine Microscopic WBC 1 /HPF (0-3) Urine Squamous Epithelial Cells Few /hpf (<5) Urine Bacteria Few /hpf (None Seen) H Urine Hyaline Casts Few /lpf (0 - 2) Urine Mucus Few (None Seen) Urine Glucose Normal mg/dL (Normal) Microbiology Microbiology Date/Time Source Procedure Growth Status 01/28/25 14:10 Cerebral Spinal Fluid Gram Stain - Final Complete 01/28/25 14:10 Cerebral Spinal Fluid CSF Culture & Gram Stain (Tube 2) M - Final Complete 01/23/25 16:40 Blood Blood Culture - Final NO GROWTH AFTER 5 DAYS OF INCUBATION. Complete Labs and/or images reviewed: Labs reviewed by me, Image(s) reviewed by me Assessment/Plan Assessment/Plan 59-year-old male with a known history of epilepsy presented to the hospital with a seizures found to have 1. Breakthrough seizure 2. Epilepsy 3. Sepsis secondary to suspected meningitis 4. History of multiple CVAs 5. Leukocytosis secondary to steroids 6. Suspected meningitis although clinical suspicion was low on admission as per Infectious Disease, empirical treatment for two more weeks of p.o. antibiotics upon discharge -continue current seizure medications, discharge plan to group home facility, continue current IV antibiotics switched to p.o. antibiotics as ordered. discharged to SNF Plan discussed with: Patient My Orders Orders - CLARA ALVARADO DO Procedure Category Date Status Time Discharge DISCHARGE 02/10/25 Verified 11:33 Date of Service: Feb 10, 2025 Billing Provider: CLARA ALVARADO DO Common Visit Codes: [id number] DISCH DAY >30min CLARA ALVARADO DO Feb 10, 2025 11:35
--- NOTE | 2025-02-10 11:36 | DVHDS2 ---
Discharge Summary Date of Admission Jan 23, 2025 at 23:08 Date of Discharge: Jan 31, 2025 Labs/Diagnostic Data: Laboratory Results Test 02/10/25 10:33 02/10/25 05:39 02/04/25 16:31 02/04/25 11:52 White Blood Count 20.5 10^3/uL (4.4-10.8) Red Blood Count 4.62 10^6/uL (4.5-5.90) Hemoglobin 14.6 g/dL (13.5-17.5) Hematocrit 43.2 % (41.0-53.0) Mean Corpuscular Volume 93.3 fL (80.0-100.0) Mean Corpuscular Hemoglobin 31.6 pg (28.0-32.0) Mean Corpuscular Hemoglobin Concent 33.9 g/dL (32.0-36.0) Red Cell Distribution Width 14.4 % (11.8-14.3) Platelet Count 259 10^3/uL (140-450) Mean Platelet Volume 8.4 fL (6.9-10.8) Neutrophils (%) (Auto) % (37.0-80.0) Lymphocytes (%) (Auto) % (10.0-50.0) Monocytes (%) (Auto) % (0.0-12.0) Basophils (%) (Auto) % (0.0-2.0) Neutrophils # (Auto) 10 ^3/uL (1.6-8.6) Lymphocytes # (Auto) 10 ^3/uL (0.4-5.4) Monocytes # (Auto) 10 ^3/uL (0-1.3) Differential Total Cells Counted 100.0 (100) Neutrophils % (Manual) 92 (37.0-80.0) Band Neutrophils % (Manual) 0 Lymphocytes % (Manual) 6 (10.0-50.0) Monocytes % (Manual) 2 (0-12) Eosinophils % (Manual) 0 (0-7) Basophils % (Manual) 0 (0.0-2.0) Metamyelocytes % (manual) 0 Myelocytes % (Manual) 0 Promyelocytes % (Manual) 0 Blast Cells % (Manual) 0 Hypersegmented Neutrophils Present Reactive Lymphocytes 0 Platelet Estimate Adequate Creatinine 0.89 mg/dL (0.700-1.30) Glomerular Filtration Rate Calc 100 mL/min (>90) POC Glucose 93 mg/dl (70-106) Vancomycin Level Trough 10.3 ug/mL (5-10) Eosinophils (%) (Auto) 0.0 % (0.0-7.0) Eosinophils # (Auto) 0 10 ^3/uL (0-0.8) Basophils # (Auto) 0 10 ^3/uL (0-0.2) Nucleated Red Blood Cells 0.0 % Test 02/03/25 06:38 02/02/25 01:11 01/29/25 06:31 01/28/25 20:14 Sodium Level 135 mmol/L (136-145) Potassium Level 3.9 mmol/L (3.5-5.1) Chloride Level 97 mmol/L (98-107) Carbon Dioxide Level 29 mmol/L (20-31) Anion Gap 9 (5-15) Blood Urea Nitrogen 19 mg/dL (9-23) BUN/Creatinine Ratio 27.9 (10.0-20.0) Serum Glucose 123 mg/dL (74-106) Calcium Level 9.0 mg/dL (8.7-10.4) Magnesium Level 2.0 mg/dL (1.6-2.6) Influenza Type A Antigen Negative (Negative) Influenza Type B Antigen Negative (Negative) SARS-CoV-2 Antigen (Rapid) Negative (NEGATIVE) Estimated GFR () 145 mL/min Estimated GFR (Non- 120 mL/min Phosphorus Level 3.0 mg/dL (2.4-5.1) Creatine Kinase 111 U/L (46-171) Albumin 4.5 g/dL (3.2-4.8) Treponema pallidum Antibody Non-reactive (Negative) Coccidioides Antibody (Comp Fix) <1:2 (<1:2) Test 01/28/25 14:10 01/28/25 08:41 01/28/25 05:30 01/27/25 05:53 CSF Tube Number Tube 3 CSF Appearance Clear CSF WBC 5 CUMM (0-5) CSF RBC 8 CUMM (0-5) CSF Protein (Tube 2) 55.0 mg/dL (15-45) CSF Mononuclear Cells 51 % CSF Polymorphonuclear Cells 49 % CSF Glucose 93 mg/dL (40-70) CSF Albumin 30 mg/dL (15-55) CSF Immunoglobulin G 5.9 mg/dL (0.0-10.3) Serum Immunoglobulin G 1282 mg/dL (603-1613) Serum Albumin (with CSF) 4.6 g/dL (3.8-4.9) CSF IgG Synthesis Rate (MS) 6.1 mg/day (-9.9 TO +3.3) CSF VDRL Non reactive (Non [place]:<1:1) CSF Cryptococcus Antigen Negative (Negative) CSF Herpes Simplex I DNA (PCR) Negative (Negative) CSF Herpes Simplex II DNA (PCR) Negative (Negative) Prothrombin Time 11.1 sec (9.3-11.8) Prothrombin Time INR 1.05 (0.9-1.15) Activated Partial Thromboplast Time 28.8 SEC (24.5-34.5) Total Bilirubin 0.7 mg/dL (0.2-1.0) Aspartate Amino Transferase (AST) 28 U/L (13-40) Alanine Aminotransferase (ALT) 22 U/L (7-40) Alkaline Phosphatase 100 U/L (46-116) Total Protein 7.8 g/dL (5.7-8.2) Triglycerides Level 119 mg/dL (< 150) HIV (1&2) Antibody Negative (Negative) Test 01/24/25 10:05 01/24/25 04:53 01/23/25 21:44 01/23/25 16:58 Levetiracetam Level 41.8 ug/mL (10.0-40.0) Hemoglobin A1c 5.0 % A1C (<5.7) Vitamin D 25-Hydroxy 13.9 ng/mL (30.0-100) Thyroid Stimulating Hormone (TSH) 1.07 uIU/mL (0.55-4.78) Hepatitis A Antibody Total Negative (Negative) Hepatitis B Surface Antigen Negative (Negative) Hepatitis B Surface Antibody Negative (Negative) Hepatitis B Core Total Antibody Negative (Negative) Hepatitis C Antibody Negative (Negative) Urine Color Colorless (Yellow) Urine Clarity Clear (Clear) Urine pH 7.5 (5.0-9.0) Urine Specific [place] 1.014 (1.001-1.035) Urine Protein Negative (Negative) Urine Ketones Negative (Negative) Urine Blood Negative /uL (Negative) Urine Nitrite Negative (Negative) Urine Bilirubin Negative (Negative) Urine Urobilinogen Normal mg/dL (Negative) Urine Leukocyte Esterase Negative /uL (Negative) Urine RBC 1 /hpf (0 - 3) Urine Microscopic WBC 1 /HPF (0-3) Urine Squamous Epithelial Cells Few /hpf (<5) Urine Bacteria Few /hpf (None Seen) Urine Hyaline Casts Few /lpf (0 - 2) Urine Mucus Few (None Seen) Urine Glucose Normal mg/dL (Normal) Urine Opiates Screen Neg (NEGATIVE) Urine Fentanyl Screen Neg (NEGATIVE) Urine Barbiturates Screen Neg (NEGATIVE) Urine Phencyclidine Screen Neg (NEGATIVE) Urine Amphetamines Screen Neg (NEGATIVE) Urine Benzodiazepines Screen Pos (NEGATIVE) Urine Cocaine Screen Neg (NEGATIVE) Urine Cannabinoids Screen Neg (NEGATIVE) Lactic Acid Level 1.3 mmol/L (0.4-2.0) Test 01/23/25 15:11 D-Dimer, Quantitative 0.49 mg/L FEU (0.0-0.49) Opiates Screen Negative Blood Oxycodone Screen Negative Blood Methadone Screen Phencyclidine (PCP) Level Negative Blood Amphetamines Screen Negative Cocaine Level Negative Marijuana (THC) Screen Negative Drugs of Abuse Source Whole blood Plasma/Serum Blood Alcohol 4.8 mg/dL (<10) Other Laboratory Tests 02/10/25 10:33 02/03/25 06:38 Brief Hx & Hospital Course: 59-year-old male with a known history of epilepsy presented to the hospital with a seizures found to have 1. Breakthrough seizure 2. Epilepsy 3. Sepsis secondary to suspected meningitis 4. History of multiple CVAs 5. Leukocytosis secondary to steroids 6. Suspected meningitis although clinical suspicion was low on admission as per Infectious Disease, empirical treatment for two more weeks of p.o. antibiotics upon discharge -continue current seizure medications, discharge plan to [facility] facility, continue current IV antibiotics switched to p.o. antibiotics as ordered. discharged to SNF Condition at Discharge: Good Final Diagnosis/Problems List Sepsis probably secondary to meningitis Questionable Meningitis Ruled out encephalitis and brain abscess Breakthrough seizures History of epilepsy History of multiple CVAs - currently wheelchair-bound Leukocytosis secondary to steroids Discharge Disposition: Care Home Facility Discharge Instruct/Medications Diet: Cardiac 2g Na,low cholest Activity: No Restrictions, As Tolerated Follow Up/Referral: Follow up with the PCP in 1-2 weeks Follow up with Dr. Bart Toussaint in 1-2 weeks Medications: Zyvox and ciprofloxacin as prescribed, resume Keppra. Discharge Statement: "Patient was advised to return to the ER or call 911 if any headaches, dizziness, shortness of breath, chest pain, abdominal pain, bleeding, fevers, or worsening of medical condition. Patient was counseled about treatment plan, medications, possible side effects, patientverbalized understanding. All questions were answered to the best of my ability. This discharge took greater then 30 minutes in planning, reviewing documentation, counseling the patient, and discussing with other team members." ASSESSMENT ASSESSMENT Assessment Sepsis probably secondary to meningitis Questionable Meningitis Ruled out encephalitis and brain abscess Breakthrough seizures History of epilepsy History of multiple CVAs - currently wheelchair-bound Leukocytosis secondary to steroids Date of Service: Feb 10, 2025 Billing Provider: CLARA ALVARADO DO Common Visit Codes: [id number] DISCH DAY >30min CLARA ALVARADO DO Feb 10, 2025 11:36
[2025-02-11 01:12] VITALS: BP_SYST 101; BP_SYST 96; BP_DIAS 50; BP_DIAS 60; PULSE 73; PULSE 78; RESP 18; TEMP 97.6; O2SAT 97
[2025-02-11 05:32] VITALS: BP 103/55; PULSE 70; RESP 17; TEMP 98.4; O2SAT 97
[2025-02-11 07:58] LABS: Basophils # (auto) 0 10 ^3/uL (0-0.2); Basophils % (auto) 0.1 % (0.0-2.0); Eosinophils # (auto) 0 10 ^3/uL (0-0.8); Eosinophils % (auto) 0.2 % (0.0-7.0); Hematocrit 42.2 % (41.0-53.0); Lymphocytes # (auto) 0.6 10 ^3/uL (0.4-5.4); Lymphocytes % (auto) 3.7 % (10.0-50.0); Mean Corpuscular Hgb Conc. 33.3 g/dL (32.0-36.0); Mean Corpuscular Volume 93.1 fL (80.0-100.0); Monocytes % (auto) 5.6 % (0.0-12.0); Neutrophils # (auto) 15.7 10 ^3/uL (1.6-8.6); Neutrophils % (auto) 90.4 % (37.0-80.0); Platelet Count (auto) 213 10^3/uL (140-450); Red Blood Cells 4.53 10^6/uL (4.5-5.90); Red Cell Distribution Width 14.6 % (11.8-14.3); White Blood Cell 17.4 10^3/uL (4.4-10.8)
[2025-02-11 08:00] VITALS: PULSE 81; RESP 18
--- NOTE | 2025-02-11 14:32 | DVHPN2 ---
Reviewed: Care Plan, H&P Changes from previous H/P or p: No Changes General: Per HPI Objective Vitals Vital Signs Date Time Temp Pulse Resp B/P (MAP) Pulse Ox O2 Delivery O2 Flow Rate FiO2 02/11/25 08:21 102/65 02/11/25 08:00 18 Room Air* 0 21 02/11/25 08:00 81 02/11/25 05:32 98.4 97 98.4 Intake/Output Intake and Output 02/11/25 07:00 Intake Total 1450 ml Output Total 1700 ml Balance -250 ml Intake Oral 1250 ml IV Total 200 ml Output Urine Total 1700 ml General Appearance: Alert, Cooperative, No acute distress HEENT: Atraumatic, PERRLA, EOMI, Mucous membr. moist/pink Neck: Supple Lungs: Clear to auscultation, Normal air movement Cardiovascular: Regular rate, Normal S1, Normal S2, No murmurs, Gallops, Rubs Abdomen: Normal bowel sounds, Soft, No tenderness, No hepatospenomegaly Neuro: Cranial nerves 3-12 NL Psych/Mental Status: Mental status NL Medications Current Medications Medications Dose Ordered Sig/Clara Route Start Time Stop Time Status Last Admin Dose Admin Aspirin 81 mg DAILY PO 01/24/25 10:00 02/11/25 08:21 81 MG Atorvastatin Calcium 40 mg HS PO 01/23/25 22:00 02/10/25 21:24 40 MG Hydralazine HCl 10 mg Q6HP PRN IV 01/23/25 21:45 01/27/25 17:44 10 MG Ondansetron HCl 4 mg Q4HP PRN IV 01/23/25 21:45 Docusate Sodium 100 mg BIDPRN PRN PO 01/23/25 21:45 Acetaminophen 650 mg Q6HP PRN PO 01/23/25 21:45 02/09/25 03:11 650 MG Amlodipine Besylate 5 mg DAILY PO 01/24/25 10:00 02/11/25 08:21 5 MG Lorazepam 1 mg Q5MINP PRN IV 01/24/25 09:15 01/27/25 17:23 1 MG Diagnostic Test (Pha) 1 strip Q6HR 01/26/25 18:00 02/11/25 11:25 1 STRIP Insulin Human Regular FOLLOW SLIDING SCALE Q6HR SC 01/26/25 18:00 02/11/25 05:58 4 UNITS Dextrose 50 ml UD IV 01/26/25 15:30 Pantoprazole Sodium 40 mg DAILY IV 01/27/25 10:00 02/11/25 08:20 40 MG Melatonin 5 mg HS PRN PO 01/28/25 00:30 02/07/25 21:39 5 MG Fat Emulsion Intravenous 150 ml/Sodium Chloride 40 meq/ Sodium Acetate 40 meq/Potassium Acetate 20 meq/ Magnesium Sulfate 12 meq/ Multivitamins 10 ml/Chromium/ Copper/Manganese/ Zinc 1 ml/Amino Acids/Dextrose/ Purified Water 2,204 ml @ 91 mls/hr [id number] IV 01/28/25 22:00 01/28/25 22:00 Cancel Lorazepam 1 mg ONCE PRN IV 01/28/25 15:30 Levetiracetam 1,500 mg BID PO 02/04/25 12:00 02/11/25 08:20 1,500 MG Vancomycin HCl 0 ml @ 0 mls/hr UD IV 02/08/25 20:15 Vancomycin HCl 200 ml @ 160 mls/hr Q12H IV 02/09/25 11:00 02/11/25 10:27 160 MLS/HR Laboratory Results Laboratory Tests 02/03/25 06:38 02/11/25 06:19 Urinalysis Test 01/23/25 21:44 Urine Color Colorless (Yellow) Urine Clarity Clear (Clear) Urine pH 7.5 (5.0-9.0) Urine Specific [place] 1.014 (1.001-1.035) Urine Protein Negative (Negative) Urine Ketones Negative (Negative) Urine Blood Negative /uL (Negative) Urine Nitrite Negative (Negative) Urine Bilirubin Negative (Negative) Urine Urobilinogen Normal mg/dL (Negative) Urine Leukocyte Esterase Negative /uL (Negative) Urine RBC 1 /hpf (0 - 3) Urine Microscopic WBC 1 /HPF (0-3) Urine Squamous Epithelial Cells Few /hpf (<5) Urine Bacteria Few /hpf (None Seen) H Urine Hyaline Casts Few /lpf (0 - 2) Urine Mucus Few (None Seen) Urine Glucose Normal mg/dL (Normal) Microbiology Microbiology Date/Time Source Procedure Growth Status 01/28/25 14:10 Cerebral Spinal Fluid Gram Stain - Final Complete 01/28/25 14:10 Cerebral Spinal Fluid CSF Culture & Gram Stain (Tube 2) M - Final Complete 01/23/25 16:40 Blood Blood Culture - Final NO GROWTH AFTER 5 DAYS OF INCUBATION. Complete Assessment/Plan Assessment/Plan 59-year-old male with a known history of epilepsy presented to the hospital with a seizures found to have 1. Breakthrough seizure 2. Epilepsy 3. Sepsis secondary to suspected meningitis 4. History of multiple CVAs 5. Leukocytosis secondary to steroids 6. Suspected meningitis although clinical suspicion was low on admission as per Infectious Disease, empirical treatment for two more weeks of p.o. antibiotics upon discharge -continue current seizure medications, discharge plan to [facility] facility, continue current IV antibiotics switched to p.o. antibiotics as ordered. discharged to SNF Plan discussed with: Patient My Orders Orders - CLARA ALVARADO DO Procedure Category Date Status Time Ok To Send Pt Home ORDERS 02/11/25 Transmitted With Neil 12:36 Date of Service: Feb 11, 2025 Billing Provider: CLARA ALVARADO DO Common Visit Codes: [id number] INP/OBS CARE(HIGH) CLARA ALVARADO DO Feb 11, 2025 14:32
--- NOTE | 2025-02-13 21:23 | DVHPN2 ---
Consult Progress Note Date Seen: Feb 09, 2025 Subjective Patient reports: Feels better (mentating well) Objective vital signs Vital Sign Date Time Temp Pulse Resp B/P (MAP) Pulse Ox O2 Delivery O2 Flow Rate FiO2 02/11/25 08:21 102/65 02/11/25 08:00 18 Room Air* 0 21 02/11/25 08:00 81 medications Current Medications Medications Dose Ordered Sig/Clara Route Start Time Stop Time Status Last Admin Dose Admin Fat Emulsion Intravenous 150 ml/Sodium Chloride 40 meq/ Sodium Acetate 40 meq/Potassium Acetate 20 meq/ Magnesium Sulfate 12 meq/ Multivitamins 10 ml/Chromium/ Copper/Manganese/ Zinc 1 ml/Amino Acids/Dextrose/ Purified Water 2,204 ml @ 91 mls/hr [id number] IV 01/28/25 22:00 01/28/25 22:00 Cancel laboratory and microbiology Laboratory Tests 02/11/25 06:19 02/03/25 06:38 Test 02/03/25 06:38 Range/Units Serum Glucose 123 H 74-106 mg/dL Problem List/Assessment/Plan Problem List/Assessment/Plan Elia Li is a 59-year-old male patient who presents to the ER brought by EMS due to breakthrough seizures which lasted approximally 10 minutes. Obtained history of present illness and past medical history from son since patient was postictal. Per son patient was found on the ground with very intense and long- lasting seizures, more than usual, prompting his visit to the ER. Patient does complain of fevers for the past two years. Denies neck stiffness, photophobia, palpitation, syncope, chest pain, dyspnea, abdominal pain, nausea, vomiting, diarrhea, genital or oral ulcers, recent travel, sick contacts and other new motor or sensory deficits. 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 Surgical history: Denies Family history: Noncontributory Social history: Lives in [place] with son (he is the caregiver), normally he mobilizes with walker. Denies current tobacco, alcohol and other drug abuse (per son he used to smoke and quit 25 years ago, does not know pack-year history). Allergies: Valium Home medication: Aspirin 81 mg p.o. daily, atorvastatin 40 mg p.o. daily, levetiracetam a 1000 mg p.o. b.i.d., amlodipine 10 mg daily, Vimpat 50 mg daily. Patient seen and examined at bedside. Denies any meningeal symptoms, is alert and oriented in two spheres (not on time) this is his normal baseline, he communicates nodding and shaking head, he whispers all his answers. Has not presented seizure activity for the past 72 hours. Physical Exam Patient lying in bed, in no acute distress General: Lucid, afebrile, mucosae are moist. Tongue is swollen and has hematoma (from biting tongue) Cardiovascular: Normal S1 and S2. No murmurs, gallops or rubs Respiratory: Normal ventilation mechanics. Clear lung sounds on auscultation Abdomen: Soft, nontender, no organomegaly, normal bowel sounds MSK/skin: Mobilizes 4 limbs. Skin is dry and warm Neurological: Oriented in 2 spheres. Right-sided hemiplegia, no other motor no sensitive deficits. Pupils are isocoric and reactive. Brudzinski and Kernig sign are negative, no neck stiffness Assessment Sepsis probably secondary to meningitis/encephalitis/brain abscess Questionable Meningitis Rule out encephalitis and brain abscess Breakthrough seizures History of epilepsy History of multiple CVAs - currently wheelchair-bound Leukocytosis secondary to steroids vancomycin trough elevated -vancomycin held. improved mentation, rising leukocytosis 02/08: likely leukocytosis is related to steroid use which is not needed at this time Plan/Recommendation - recommend stopping all steroid use as is not needed at this time and likely contributing to leukocytosis Completed lumbar puncture on 01/28/2025, with analysis of CSF which showed mildly elevated white blood cells after treatment with IV antibiotics for at least 48 hours, could be resolving meningitis. Pending rest of CSF analysis (HSV one and two, was Nile (not available in hospital), cytology, chemistry and culture). No IV steroids needed at this time since it has been more than 24 hours since administration of IV antibiotics. Have discussed with primary team to discontinue dexamethasone. 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 HIV and treponema negative We will hold on acyclovir until obtaining results of lumbar puncture analysis continue vancomycin and Ceftriaxone for now Appreciate input of Neurology specialist. Rest of management per primary team. Discharge planning with p.o. antibiotics (linezolid 600 mg p.o. b.i.d. and ciprofloxacin 500 mg p.o. b.i.d.) to complete a course of 21 days per guideline recommendations, since patient is clinically stable, have decided to complete course with p.o. antibiotics once discharged. Plan discussed with: Patient Dietary Evaluation Review Comments: 1) If NPO > 7 days, consider EN/TPN to meet at least 75% estimated daily needs 2) Initiate Pro-Stat @ 30 mL qd 3) Initiate vitamin C @ 500 mg bid and zinc sulfate @ 220 mg qd for 7-10 days 4) Advance to 2g Na diet when medically feasible, pending [facility] approval 5) Follow-up with neurology Expected Outcomes/Goals: 1) patient to receive nutritional support within 7 days 2) labs and wound to improve 3) diet to advance 4) f/u in 2-3 days MASON ALEMAN MD Feb 13, 2025 21:23
--- NOTE | 2025-02-13 21:24 | DVHPN2 ---
Consult Progress Note Date Seen: Feb 10, 2025 Subjective Patient reports: Feels better (no nausea vomitting, no fever or chills) Objective vital signs Vital Sign Date Time Temp Pulse Resp B/P (MAP) Pulse Ox O2 Delivery O2 Flow Rate FiO2 02/11/25 08:21 102/65 02/11/25 08:00 18 Room Air* 0 21 02/11/25 08:00 81 medications Current Medications Medications Dose Ordered Sig/Clara Route Start Time Stop Time Status Last Admin Dose Admin Fat Emulsion Intravenous 150 ml/Sodium Chloride 40 meq/ Sodium Acetate 40 meq/Potassium Acetate 20 meq/ Magnesium Sulfate 12 meq/ Multivitamins 10 ml/Chromium/ Copper/Manganese/ Zinc 1 ml/Amino Acids/Dextrose/ Purified Water 2,204 ml @ 91 mls/hr [id number] IV 01/28/25 22:00 01/28/25 22:00 Cancel laboratory and microbiology Laboratory Tests 02/11/25 06:19 02/03/25 06:38 Test 02/03/25 06:38 Range/Units Serum Glucose 123 H 74-106 mg/dL Problem List/Assessment/Plan Problem List/Assessment/Plan Elia Li is a 59-year-old male patient who presents to the ER brought by EMS due to breakthrough seizures which lasted approximally 10 minutes. Obtained history of present illness and past medical history from son since patient was postictal. Per son patient was found on the ground with very intense and long- lasting seizures, more than usual, prompting his visit to the ER. Patient does complain of fevers for the past two years. Denies neck stiffness, photophobia, palpitation, syncope, chest pain, dyspnea, abdominal pain, nausea, vomiting, diarrhea, genital or oral ulcers, recent travel, sick contacts and other new motor or sensory deficits. 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 Surgical history: Denies Family history: Noncontributory Social history: Lives in [place] with son (he is the caregiver), normally he mobilizes with walker. Denies current tobacco, alcohol and other drug abuse (per son he used to smoke and quit 25 years ago, does not know pack-year history). Allergies: Valium Home medication: Aspirin 81 mg p.o. daily, atorvastatin 40 mg p.o. daily, levetiracetam a 1000 mg p.o. b.i.d., amlodipine 10 mg daily, Vimpat 50 mg daily. Patient seen and examined at bedside. Denies any meningeal symptoms, is alert and oriented in two spheres (not on time) this is his normal baseline, he communicates nodding and shaking head, he whispers all his answers. Has not presented seizure activity for the past 72 hours. Physical Exam Patient lying in bed, in no acute distress General: Lucid, afebrile, mucosae are moist. Tongue is swollen and has hematoma (from biting tongue) Cardiovascular: Normal S1 and S2. No murmurs, gallops or rubs Respiratory: Normal ventilation mechanics. Clear lung sounds on auscultation Abdomen: Soft, nontender, no organomegaly, normal bowel sounds MSK/skin: Mobilizes 4 limbs. Skin is dry and warm Neurological: Oriented in 2 spheres. Right-sided hemiplegia, no other motor no sensitive deficits. Pupils are isocoric and reactive. Brudzinski and Kernig sign are negative, no neck stiffness Assessment Sepsis probably secondary to meningitis/encephalitis/brain abscess Questionable Meningitis Rule out encephalitis and brain abscess Breakthrough seizures History of epilepsy History of multiple CVAs - currently wheelchair-bound Leukocytosis secondary to steroids vancomycin trough elevated -vancomycin held. improved mentation, rising leukocytosis 02/08: likely leukocytosis is related to steroid use which is not needed at this time Plan/Recommendation - recommend stopping all steroid use as is not needed at this time and likely contributing to leukocytosis Completed lumbar puncture on 01/28/2025, with analysis of CSF which showed mildly elevated white blood cells after treatment with IV antibiotics for at least 48 hours, could be resolving meningitis. Pending rest of CSF analysis (HSV one and two, was Nile (not available in hospital), cytology, chemistry and culture). No IV steroids needed at this time since it has been more than 24 hours since administration of IV antibiotics. Have discussed with primary team to discontinue dexamethasone. 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 HIV and treponema negative We will hold on acyclovir until obtaining results of lumbar puncture analysis continue vancomycin and Ceftriaxone for now Appreciate input of Neurology specialist. Rest of management per primary team. Discharge planning with nardao. antibiotics (linezolid 600 mg p.o. b.i.d. and ciprofloxacin 500 mg p.o. b.i.d.) to complete a course of 21 days per guideline recommendations, since patient is clinically stable, have decided to complete course with p.o. antibiotics once discharged. Plan discussed with: Patient Dietary Evaluation Review Comments: 1) If NPO > 7 days, consider EN/TPN to meet at least 75% estimated daily needs 2) Initiate Pro-Stat @ 30 mL qd 3) Initiate vitamin C @ 500 mg bid and zinc sulfate @ 220 mg qd for 7-10 days 4) Advance to 2g Na diet when medically feasible, pending [employer] approval 5) Follow-up with neurology Expected Outcomes/Goals: 1) patient to receive nutritional support within 7 days 2) labs and wound to improve 3) diet to advance 4) f/u in 2-3 days MASON ALEMAN MD Feb 13, 2025 21:24
== END 2025-02-11 14:30 | DRG 720 ==
LOC: ER 14:20 → EDBD 14:20 → OVERFLOW 23:08 → TELE-WESTW 01-24 06:50 → TELE-EAST 01-25 16:55 → TELE-WESTW 01-28 23:16
PROVIDERS: ADMIT Internal Medicine; ATTEND Internal Medicine
PROC: 05HA33Z Insertion of Infusion Device into Left Brachial Vein, Percutaneous Approach (ICD-10-PCS; principal; 2025-01-27)
PROC: B54NZZA Ultrasonography of Left Upper Extremity Veins, Guidance (ICD-10-PCS; 2025-01-27)
PROC: 009U3ZX Drainage of Spinal Canal, Percutaneous Approach, Diagnostic (ICD-10-PCS; 2025-01-28)
DX: A41.9 Sepsis, unspecified organism (principal); F05 Delirium due to known physiological condition; G40.401 Other generalized epilepsy and epileptic syndromes, not intractable, with status epilepticus; G03.9 Meningitis, unspecified; I69.351 Hemiplegia and hemiparesis following cerebral infarction affecting right dominant side; I10 Essential (primary) hypertension; E55.9 Vitamin D deficiency, unspecified; T38.0X5A Adverse effect of glucocorticoids and synthetic analogues, initial encounter; G47.00 Insomnia, unspecified; Z79.899 Other long term (current) drug therapy; Z88.8 Allergy status to other drugs, medicaments and biological substances; Z99.3 Dependence on wheelchair; Y92.89 Other specified places as the place of occurrence of the external cause; Z86.73 Personal history of transient ischemic attack (TIA), and cerebral infarction without residual deficits
CPT/HCPCS: 10005; 36415; 70450; 70551; 71045; 72131; 77012; 80048; 80053; 80069; 80202; 80307; 80320; 81001; 82042; 82306; 82542; 82550; 82565; 82784; 82945; 82962; 83036; 83605; 83735; 84100; 84157; 84443; 84478; 85007; 85025; 85027; 85379; 85610; 85730; 86592; 86635; 86703; 86704; 86706; 86708; 86780; 86803; 87040; 87070; 87205; 87340; 87426; 87529; 87804; 87899; 89051; 92610; 93005; 95819; 96361; 96374; 96375; 97110; 97116; 97163; 97530; G0378; J1100; J1815; J2003; J2470; J2543; J7060; J7131